=== PATIENT | male | born 1955 | race Caucasian/White ===

== ENCOUNTER 2024-02-21 11:06 | Outpatient (CLI) | payer MEDICARE, MEDICAID, SELFPAY ==
--- NOTE | 2024-02-21 11:19 | ECG_ITS ---
APPROVED REPORT Exam: Resting ECG HR:47 bpm ECG Measurements Heart Rate 47 AXES QRSd 106 QRS 9 QT 439 T 14 QTc 402 Conclusion SUPRAVENTRICULAR BRADYCARDIA LOW QRS VOLTAGE IN PRECORDIAL LEADS [QRS DEFLECTION < 1.0 mV IN CHEST LEADS] ABNORMAL RHYTHM ECG UNCONFIRMED REPORT Electronically signed by : Antelmo Watson MD 02/22/2024 17:16:50
[2024-02-21 11:49] LABS: Basophils # 0.1 K/mm3 (0-0.2); Basophils % 0.8 % (0.1-2.0); Eosinophils # 0.2 K/mm3 (0.0-0.4); Eosinophils % 2.6 % (0.1-12.0); Hematocrit 32.3 % (42.0-52.0); Hemoglobin 10.4 g/dL (14.1-18.0); Lymphocytes # 1.4 K/mm3 (0.7-4.5); Lymphocytes % 17.4 % (10-50); Mean Corpuscular HGB Conc 32.3 g/dL (31.8-35.4); Mean Corpuscular Hemoglobin 31.2 pg (27.0-31.2); Mean Corpuscular Volume 96.6 fl (80-94); Mean Platelet Volume 9.2 fl (7.4-10.4); Monocytes # 0.5 K/mm3 (0.1-1.0); Monocytes % 6.5 % (1.7-9.3); Neutrophils # 5.8 K/mm3 (1.8-7.8); Neutrophils % 72.7 % (37.0-80.0); Platelet Count 286 K/mm3 (142-424); Red Blood Count 3.34 M/mm3 (4.60-6.20)
[2024-02-21 12:47] LABS: Chloride 107 mmol/L (98-107); Potassium 4.3 mmoL/L (3.5-5.1); Sodium 139 mmol/L (136-145)
[2024-02-21 12:50] LABS: Alanine Aminotransferase 13 U/L (12-78); Albumin/Globulin Ratio 1.5 (1.1-1.8); Alkaline Phosphatase 75 U/L (38-126); Anion Gap 9.3 mEq/L (5-15); Aspartate Amino Transferase 25 U/L (17-59); Bilirubin,Total 0.5 mg/dl (0.2-1.3); Blood Urea Nitrogen 13 mg/dl (9-20); Calcium 9.1 mg/dl (8.4-10.2); Carbon Dioxide 27 mmol/L (22.0-30.0); Estimated Glomerular Filt Rate 75 ml/min (>60); GFR (African American) 90 ML/MIN (>60); Globulin 2.7 g/dL (1.3-3.2); Glucose 80 mg/dl (74-100); Total Protein,Serum 6.7 g/dl (6.3-8.2)
== END 2024-02-21 23:59 | disposition home or self-care (01) ==
LOC: LAB 11:10
PROVIDERS: PCP Nurse Practitioner Family; Visit Provider Surgery
DX: R22.30 Localized swelling, mass and lump, unspecified upper limb (principal)
CPT/HCPCS: 36415; 80053; 85025; 93005

== ENCOUNTER 2024-02-23 06:02 | Day surgery (SDC) | payer MEDICARE, MEDICAID, SELFPAY ==
[2024-02-23] VITALS (9 sets, daily range): BP systolic 109–128; BP diastolic 63–77; PULSE 41–52; RESP 16–18; TEMP 36.1–36.5; O2SAT 95–96; BMI 21.2
[2024-02-23] MEDS: LACTATED RINGERS 1000ML 1,000 ML 25 ML IV (06:28)
[2024-02-23] MEDS: CLINDAMYCIN PHOSPHATE/D5W 900 MG/50 ML PIGGYBACK 100 MG IV (07:24)
[2024-02-23] MEDS: LIDOCAINE 1% 20ML MDV 20 ML (07:30)
[2024-02-23] MEDS: ROPIVACAINE 0.5% 30ML VIAL 150 MG (07:30)
--- NOTE | 2024-02-23 07:56 | P.OP_ITS ---
Date of procedure: 02/23/24 Pre-op Diagnosis:: Forearm lesion Post-op Diagnosis:: Same Procedure performed:: Excision of lesion from right forearm Surgeon:: Diego Truong MD RISK CONTROL OFFICER:: Josh Ramirez Anesthesia: LMA Estimated blood loss (mL): 10 Clinical Note:: Patient is a 69-year-old male with no regular physician. He states that he has not gone to the doctor in quite some time. He had developed a lesion on the right forearm about 2 years ago. It had markedly increased in size over time. He had attempted to tie it off and ligated about a week or so ago. He was finally convinced by his family to seek medical attention. He was seen in Joey Whaley's office and referred for surgical consultation. He was seen in surgical consultation on 02/21/2024 in the office. He was found to have a large somewhat pedunculated fungating necrotic lesion measuring at least 5 cm which was foul-smelling. It was difficult to determine the etiology. There was some surrounding scar tissue on the forearm. Given the necrosis and potential for infection of this large lesion plan was made for simple excision with attempted primary closure. It was explained to the patient that this could be a neoplasm may require more definitive therapy possibly at higher level facility. However, given the necrosis and potential for infection plan was made to proceed with excision. . Operative findings:: Somewhat pedunculated large 5 to 6 cm forearm skin mass . Surrounding skin tissues were very friable. . Operative note:: Consent was obtained patient taken the operating room. He was positioned in supine position. Anesthesia was induced via LMA. The area was prepped and draped in the standard surgical fashion. Inspection was carried out and there was somewhat of a pedunculated smaller base. Limited incision was made in an attempt to create somewhat of an elliptical incision at the base. The lesion with the limited skin was excised with use of electrocautery. Hemostasis was achieved with electrocautery. Local anesthetic was infiltrated. The skin defect was closed as best as possible with several dermal interrupted 3-0 Vicryl sutures and interrupted 4-0 nylon. Surrounding skin tissues were very friable. Antibiotic ointment and dressing was applied. . Condition: stable Disposition: PACU Complications:: None immediately.
--- NOTE | 2024-02-23 08:56 | EXP.ANES.II ---
[facility] Anesthesia Record Part II Anesthesia Record Part II Discharge Time: 08:25 Destination: Surgical Day Care (OP Surgery) PACU nurse assessment reviewed?: Yes Patient Condition:: Good Anesthesia Complications:: None Swallowing reflex intact?: Yes Airway Patency: Patent Cyanosis?: No Blood Pressure: 123/73 SaO2: 96 Respiratory Rate: 16 Pulse Rate: 48 Temperature: 97.6 F Mental Status: Alert & Oriented Pain level:: 0 Nausea and/or vomitting:: None Intake, IV Amount: 0 Hydration: Adequate
== END 2024-02-23 08:56 | disposition home or self-care (01) ==
PROVIDERS: PCP Nurse Practitioner Family; Visit Provider Surgery
PROC: (CPT 11606; principal; 2024-02-23 07:30)
DX: C43.61 Malignant melanoma of right upper limb, including shoulder (principal)
CPT/HCPCS: 11606; 88305; 88341; 88342; 96374; J1100; J2405; J3010; J7120

== ENCOUNTER 2025-02-12 10:17 | Inpatient (IN) | payer MEDICARE, MEDICAID, SELFPAY ==
[2025-02-12] VITALS (31 sets, daily range): BP systolic 119–151; BP diastolic 62–81; PULSE 49–80; RESP 16–18; TEMP 36.6–37.1; O2SAT 90–99; BMI 22.4
--- NOTE | 2025-02-12 10:28 | PC.NURSE ---
TERI MELISSA at
[2025-02-12 11:05] LABS: Immature Granulocytes % 0.6 %; Mean Corpuscular HGB Conc 28.6 g/dL (31.8-35.4); Mean Corpuscular Hemoglobin 23.3 pg (27.0-31.2); Mean Corpuscular Volume 81.4 fl (80-94); Nucleated Red Blood Cells % 0.3 %; Platelet Count 399 K/mm3 (142-424); Red Blood Count 2.53 M/mm3 (4.60-6.20); Red Cell Distribution Width-SD 50.1 fL; White Blood Count 7.9 K/mm3 (4.8-10.8)
[2025-02-12 11:09] LABS: Hematocrit 20.6 % (42.0-52.0)
[2025-02-12 11:13] LABS: Albumin Level 4.6 g/dl (3.5-5.0); Chloride 107 mmol/L (98-107)
[2025-02-12 11:14] LABS: Potassium 4.2 mmoL/L (3.5-5.1); Sodium 141 mmol/L (136-145)
[2025-02-12 11:15] LABS: INR 0.97 (0.9-1.1); Prothrombin Time 10.8 seconds (10.1-12.5)
[2025-02-12 11:16] LABS: Alanine Aminotransferase 11 U/L (12-78); Anion Gap 15.2 mEq/L (5-15); Aspartate Amino Transferase 22 U/L (17-59); Blood Urea Nitrogen 15 mg/dl (9-20); Carbon Dioxide 23 mmol/L (22.0-30.0); Creatinine Clearance Estimated 73 mL/min (50-200); Creatinine,Serum 0.90 mg/dl (0.66-1.25); Estimated Glomerular Filt Rate 84 ml/min (>60); GFR (African American) 102 ML/MIN (>60)
[2025-02-12 11:17] LABS: Albumin/Globulin Ratio 1.4 (1.1-1.8); Alkaline Phosphatase 71 U/L (38-126); Bilirubin,Total 0.4 mg/dl (0.2-1.3); Calcium 9.6 mg/dl (8.4-10.2); Globulin 3.3 g/dL (1.3-3.2); Glucose 87 mg/dl (74-100); Total Protein,Serum 7.9 g/dl (6.3-8.2)
[2025-02-12 11:20] LABS: Hemoglobin 5.9 g/dL (14.1-18.0)
[2025-02-12 11:49] LABS: Free T4 (Free Thyroxine) 0.09 ng/dl (0.78-2.19)
[2025-02-12 12:06] LABS: Occult Blood,Stool Positive (Negative)
[2025-02-12] MEDS: PANTOPRAZOLE SODIUM 80 MG in 0.9 % SODIUM CHLORIDE 100 ML 100 MG IV (12:17)
[2025-02-12 12:33] LABS: Hepatitis C Ab Qual. W/ RFX NEGATIVE (Negative)
--- NOTE | 2025-02-12 12:35 | PC.NURSE ---
Dr. castillo office called and said he was in a meeting and would call back in 30 mins.
--- NOTE | 2025-02-12 12:48 | EXP.HP ---
History of Present Illness *Admission Date: 02/12/25 *Reason for visit:: Weakness *History of present illness: Mr. Bear is a 70-year-old male with past medical history of melanoma status post excisions and skin grafts. No other significant past medical history. On no home medications at this time. He presented to the ER because of worsening fatigue and weakness. Presented with his significant other who states he is just not been himself. Concerned he is been more pale. Due to his weakness, initial labs were obtained. Found to have severe anemia with hemoglobin of 5.9. Thyroid labs obtained showing TSH 185. Typed and crossed for transfusion and initiated on transfusion in the ED. Medicine consulted for admission and further management. On arrival to the floor, patient is alert and oriented x 4. Denies any bria bloody stools or melena. Stool occult found to be positive. Receiving his first unit of blood. States he is feeling little bit better since starting to receive blood. Says he has just not had the energy to do much for quite some time. Unable to specify further. Denies any tobacco use history. Drinks rarely. Does not take aspirin or NSAIDs frequently. On no home medications. [facility] Disclaimer: The information contained in this section may have been updated after the patient was seen, as this information can be updated by other users. Medical History No significant past medical history Surgical History History of local excision of skin lesion History of abdominal surgery History of arthroscopy of left knee Family History Mother Bone cancer Lung cancer Father Prostate cancer Social History Smoking Status: Current every day smoker alcohol intake: current substance use type: marijuana current occupational status: retired and other Travel in the last 8 weeks?: None Have you lived/traveled outside US in past 30 days?: No Contact w/someone who lives/traveled outside US past 30 days?: No Exposure to someone with infectious disease in past 14 days?: No Do you have a fever (greater than 100.4 F or 38 C)?: No Have you tested positive for COVID-19?: No Exposed to someone with COVID-19 in past 14 days?: No Do you have a sore throat?: No Do you have a cough?: No Do you have any weakness?: No Do you have any diarrhea?: No Are you experiencing any unusual bleeding?: No Do you have any muscle aches/pain?: No Do you have any abdominal pain?: No Are you experiencing loss of taste or smell?: No Other Medical History Have you received the Pneumonia Vaccine: No Review of Systems Review of Systems Review of systems (narrative): 14 point review of systems performed, pertinent positives and negatives as per HPI Meds Home Medications and Allergies Home Medications ?Medication ?Instructions ?Recorded ?Confirmed ?Type No Known Home Medications 02/21/24 02/12/25 History New Prescriptions to Start Prescriptions: Allergies Allergy/AdvReac Type Severity Reaction Status Date / Time penicillin G Allergy Unknown Unknown Verified 02/12/25 11:32 allergy reaction Exam Data for Last 24 hours Vital signs and Labs for Last 24 Hours: Temp Pulse Resp BP Pulse Ox O2 Del Method 98.0 F 64 18 151/81 H 98 Room Air 02/12/25 10:38 02/12/25 10:38 02/12/25 10:38 02/12/25 10:38 02/12/25 10:38 02/12/25 10:38 Laboratory Results - last 24 hr 02/12/25 10:50: WBC 7.9, RBC 2.53 L, Hgb 5.9 L*, Hct 20.6 L*, MCV 81.4, MCH 23.3 L, MCHC 28.6 L, RDW 16.9, Plt Count 399, MPV 10.0, Neut % (Auto) 69.9, Lymph % (Auto) 15.4, [place] % (Auto) 9.8 H, Eos % (Auto) 3.4, Baso % (Auto) 0.9, Neut # (Auto) 5.5, Lymph # (Auto) 1.2, [place] # (Auto) 0.8, Eos # (Auto) 0.3, Baso # (Auto) 0.1, PT 10.8, INR 0.97, Sodium 141, Potassium 4.2, Chloride 107, Carbon Dioxide 23, Anion Gap 15.2 H, BUN 15, Creatinine 0.90, Estimated Creat Clear 73, Estimated GFR 84, Est GFR ( Amer) 102, Glucose 87, Calcium 9.6, Total Bilirubin 0.4, AST 22, ALT 11 L, Alkaline Phosphatase 71, Total Protein 7.9, Albumin 4.6, Globulin 3.3 H, Albumin/Globulin Ratio 1.4, Free T4 0.09 L, HCV Ab PATRICIA w/Rflx PCR Qn Negative, HIV Ag/Ab Combo Qual Negative, Blood Type A Positive, Antibody Screen Negative, Crossmatch (AHG) See Detail 02/12/25 11:30: Blood Type Confirm A Positive 02/12/25 12:00: Stool Occult Blood Positive A I & O for Last 24 hours: Intake & Output 02/09/25 02/10/25 02/11/25 02/12/25 23:59 23:59 23:59 23:59 Weight 73.028 kg Constitutional Constitutional: no acute distress, thin, chronically ill appearing and cooperative *Routine HEENT Exam Head: Present normocephalic Eye: Present EOMI and PERRL ENT: Present mucous membranes moist *Routine Neck Exam Neck: Present supple; Absent lymphadenopathy *Routine Respiratory Exam Respiratory: Present CTA bilaterally; Absent respiratory distress, stridor or wheezes *Routine Cardiovascular Exam Cardiovascular: Present RRR *Routine Abdominal Exam Abdominal: Present soft and normoactive bowel sounds; Absent tenderness *Routine Rectal Exam Rectal:: deferred *Routine Genitalia Exam Genitalia:: deferred *Routine Extremities Exam Extremities: Absent cyanosis, clubbing or edema *Routine Skin Exam Skin: Present intact, pallor and warm; Absent rash *Routine Neurological Exam Neurological: Present alert, oriented X3 and moving all extremities; Absent altered mental status Assessment and Plan *Assessment and plan (1) Hypothyroidism: Status: Acute Qualifiers: Hypothyroidism type: unspecified Qualified Code(s): E03.9 - Hypothyroidism, unspecified Category: Medical Code(s): E03.9 - Hypothyroidism, unspecified (2) ABLA (acute blood loss anemia): Status: Acute Category: Medical Code(s): D62 - Acute posthemorrhagic anemia (3) Melanoma: Status: Chronic Category: Medical Code(s): C43.9 - Malignant melanoma of skin, unspecified (4) GI (gastrointestinal hemorrhage): Status: Acute Qualifiers: GI bleed type/associated pathology: melena Qualified Code(s): K92.1 - Melena Category: Medical Code(s): K92.2 - Gastrointestinal hemorrhage, unspecified Plan 70-year-old man who presents with weakness and fatigue. Significant other states he has been more pale and fatigued lately. On presentation found to have severe anemia with hemoglobin of 5.9 and a TSH of 185. Discussed case with ER physician, request admission for severe hypothyroidism and symptomatic anemia. I decided to admit due to severity of hypothyroidism and anemia. Concern for acute on chronic blood loss anemia. Stool occult positive. GI consulted. Problems addressed as follows: Acute on chronic blood loss anemia - Stool occult positive. Concern for GI bleed. Received 80 mg pantoprazole IV once in the ED. Continue 40 mg IV twice daily - Transfusion threshold hemoglobin less than 7. Transfusing 2 units at this time. Repeat H&H this afternoon. Hemoglobin on presentation of 5.9 - GI consulted, n.p.o. at midnight, plan for EGD in the morning - Repeat CBC, CMP, magnesium ordered for the morning Hypothyroid - TSH 185, free T4 less than 0.1. Severe hypothyroid. Concerned it may be a culprit in his anemia above. Needs aggressive treatment. Initiate on 200 mcg IV levothyroxine once. Continue 100 mcg daily. - Initiate liothyronine 2.5 mcg 3 times a day for his T3 deficit. - Thyroid ultrasound ordered and pending - Thyroid peroxidase antibody pending, thyroid-stimulating immunoglobulin pending History of melanoma: Multiple previous excisions. Lesions well-healed. Not on any chemo at this time. Full code N.p.o. pending EGD SCDs, VTE contraindicated
--- NOTE | 2025-02-12 13:56 | ED_ITS ---
Discharge Plan Disposition Patient Disposition: Admitted Condition: Fair Prescriptions Prescriptions: No Action No Known Home Medications Referrals Follow up/Referrals: Joey Whaley APRN [Primary Care Provider, Medical] - See instructions Clinical Impressions Clinical Impression: ABLA (acute blood loss anemia), GI (gastrointestinal hemorrhage), Hypothyroidism Print Language Print Language: Somali Discharge ED Provider: Alex Bautista General Adult HPI General Chief complaint: Weakness Stated complaint: anemia and hypothroidism Time Seen by Provider: 02/12/25 10:21 Mode of Arrival: Ambulatory Source of Information: Patient Description of Symptoms (Recalled from ER Triage Doc. by RN): Patient reports he was sent over for evaluation for some abnormal lab results after seeing his pcp yesterday. History of Present Illness HPI narrative: This is a 70-year-old male patient, with past medical history of melanoma status post local excision with no evidence of metastasis, who is presenting to the emergency department today for evaluation of anemia noted in clinic. He had blood labs with the Joey Whaley in clinic and was referred here for further evaluation. This gentleman tells me that he has been having melanotic stools over the course of the last several months in addition to progressive weakness, fatigue, and lightheadedness. He also states that he experiences near syncope with standing up quickly. His tells me that he used to be full of energy and was able to perform extensive activity, but he is now unable to do so. He has not had any abdominal pain or persistent nausea. He does state from time to time he feels as if he is having reflux. Otherwise he has not had any evidence of hematemesis. No chest pain or shortness of breath Related Data Home Medications ?Medication ?Instructions ?Recorded ?Confirmed No Known Home Medications 02/21/2401/25 Allergies Allergy/AdvReac Type Severity Reaction Status Date / Time penicillin G Allergy Unknown Unknown Verified 02/12/25 11:32 allergy reaction [facility] Disclaimer: The information contained in this section may have been updated after the patient was seen, as this information can be updated by other users. Medical History No significant past medical history Surgical History History of local excision of skin lesion History of abdominal surgery History of arthroscopy of left knee Family History Mother Bone cancer Lung cancer Father Prostate cancer Social History Smoking Status: Current every day smoker alcohol intake: current substance use type: marijuana current occupational status: retired and other Travel in the last 8 weeks?: None Have you lived/traveled outside US in past 30 days?: No Contact w/someone who lives/traveled outside US past 30 days?: No Exposure to someone with infectious disease in past 14 days?: No Do you have a fever (greater than 100.4 F or 38 C)?: No Have you tested positive for COVID-19?: No Exposed to someone with COVID-19 in past 14 days?: No Do you have a sore throat?: No Do you have a cough?: No Do you have any weakness?: No Do you have any diarrhea?: No Are you experiencing any unusual bleeding?: No Do you have any muscle aches/pain?: No Do you have any abdominal pain?: No Are you experiencing loss of taste or smell?: No Other Medical History Have you received the Pneumonia Vaccine: No ROS Obtained: Yes Systems reviewed as appropriate & no additional complaints except as documented Physical Exam General General appearance: other (See MDM) Respiratory Respiratory exam: Present other (See MDM) Cardiovascular Cardiovascular exam: Present other (See MDM) Neurological Exam Neurological exam: Present other (See MDM) Medical Decision Making Medical Records Medical records reviewed: Yes I reviewed the patient's medical records. Screening: Per USPSTF and CDC recommendations, given the prevalence of disease in our region, it is our hospital?s policy to screen for HIV and viral Hepatitis for all patients aged 18 and over and those with ongoing risk factors. Jonathan Inquiry Pt receiving controlled substance: No Jonathan was queried for this patient: No Vital Signs: 02/12/25 10:31 02/12/25 10:38 02/12/25 12:20 Temperature 98.0 F Temperature Source Oral Pulse Rate 63 55 L Pulse Rate [Right Brachial] 64 Respiratory Rate 18 Blood Pressure 147/78 H 126/62 Blood Pressure [Right Arm] 151/81 H Blood Pressure Mean [Right Arm] 104 Blood Pressure Source [Right Arm] Automatic Cuff Blood Pressure Position [Right Arm] Sitting 02 Sat by Pulse Oximetry 97 98 96 Oxygen Delivery Method Room Air Room Air 02/12/25 12:30 02/12/25 13:00 Temperature Temperature Source Pulse Rate 54 L 58 L Pulse Rate [Right Brachial] Respiratory Rate Blood Pressure 119/64 126/70 Blood Pressure [Right Arm] Blood Pressure Mean [Right Arm] Blood Pressure Source [Right Arm] Blood Pressure Position [Right Arm] 02 Sat by Pulse Oximetry 99 97 Oxygen Delivery Method Room Air Lab Data Lab Results 02/12/25 10:50: WBC 7.9, RBC 2.53 L, Hgb 5.9 L*, Hct 20.6 L*, MCV 81.4, MCH 23.3 L, MCHC 28.6 L, RDW 16.9, Plt Count 399, MPV 10.0, Neut % (Auto) 69.9, Lymph % (Auto) 15.4, [place] % (Auto) 9.8 H, Eos % (Auto) 3.4, Baso % (Auto) 0.9, Neut # (Auto) 5.5, Lymph # (Auto) 1.2, [place] # (Auto) 0.8, Eos # (Auto) 0.3, Baso # (Auto) 0.1, PT 10.8, INR 0.97, Sodium 141, Potassium 4.2, Chloride 107, Carbon Dioxide 23, Anion Gap 15.2 H, BUN 15, Creatinine 0.90, Estimated Creat Clear 73, Estimated GFR 84, Est GFR ( Amer) 102, Glucose 87, Calcium 9.6, Total Bilirubin 0.4, AST 22, ALT 11 L, Alkaline Phosphatase 71, Total Protein 7.9, Albumin 4.6, Globulin 3.3 H, Albumin/Globulin Ratio 1.4, Free T4 0.09 L, HCV Ab PATRICIA w/Rflx PCR Qn Negative, HIV Ag/Ab Combo Qual Negative, Blood Type A Positive, Antibody Screen Negative, Crossmatch (AHG) See Detail 02/12/25 11:30: Blood Type Confirm A Positive 02/12/25 12:00: Stool Occult Blood Positive A 02/12/25 10:50 02/12/25 10:50 Orders (Tests/Meds): ED MEDICATIONS Generic Name Dose Route Start Last Admin Trade Name Freq PRN Reason Stop Dose Admin Acetaminophen 650 mg 02/12/25 12:47 Acetaminophen 325mg Tab PO 09/18/25 12:46 Q4HP PRN Fever or Mild Pain (1-3) Sodium Chloride 250 mls @ 25 mls/hr 02/12/25 11:30 Sod Chlor 0.9% 250ml Bag IV 02/13/25 11:29 .Q10H JOEL Nicotine 21 mg 02/12/25 12:47 Nicotine 21mg/24hr Patch TD 03/14/25 12:46 DAILYP PRN Nicotine Cravings Pantoprazole Sodium 40 mg 02/12/25 21:00 Pantoprazole 40mg Vial IV 03/14/25 20:59 BID JOEL Sodium Chloride 10 ml 02/12/25 12:50 Sodium Chloride 0.9% 10ml Vial IV 03/14/25 12:49 NEEDED PRN Reconstitute Medications Discontinued Medications Generic Name Dose Route Start Last Admin Trade Name Freq PRN Reason Stop Dose Admin Pantoprazole Sodium 80 mg/ 100 mls @ 100 mls/hr 02/12/25 12:04 02/12/25 13:19 Sodium Chloride IV 02/12/25 13:03 Infused ONCE ONE Infusion ORDERS Category Date Time Status Blood transfusion [Red Blood Cells] Stat BBK 02/12/25 10:50 Results Type and Screen Stat BBK 02/12/25 10:50 Results Gastroenterology Consult [Consult to Gastroenterology] Cons 02/12/25 12:47 Active [CONS] Routine CBC w/Auto Diff [Complete Blood Count Auto Diff] Stat Lab 02/12/25 10:50 Completed CMP [Comprehensive Metabolic Panel] Stat Lab 02/12/25 10:50 Results Complete Blood Count Auto Diff AMLAB Lab 02/13/25 06:00 Ordered Comprehensive Metabolic Panel AMLAB Lab 02/13/25 06:00 Ordered Free T4 (Free Thyroxine) Stat Lab 02/12/25 10:50 Completed HIV Combo Stat Lab 02/12/25 10:50 Completed Hepatitis C Ab Qual. W/ RFX Stat Lab 02/12/25 10:50 Completed Magnesium AMLAB Lab 02/13/25 06:00 Ordered Occult Blood,Stool Stat Lab 02/12/25 12:00 Completed PT INR [Prothrombin Time INR] Stat Lab 02/12/25 10:50 Completed TSH [Thyroid Stimulating Hormone] Stat Lab 02/12/25 10:50 Results Medical Decision Narrative: In summary, this is a 70-year-old male patient who is presenting to the emergency department today for evaluation of chronic fatigue and weakness going on over period of months in association with melanotic stools. Patient's comorbidities include a past medical history of melanoma status post local excision with no current evidence of metastasis. On initial evaluation of the patient they were resting comfortably in no acute distress and nontoxic in appearance. They are hemodynamically stable, saturating well room air, and are neurologically intact. On physical examination the patient his heart and lungs are clear to auscultation bilaterally. He has no abdominal tenderness to palpation. He is not tachycardic. He does have conjunctival pallor as well as facial pallor. Differential diagnosis includes lower GI bleed, upper GI bleed, Dula Lina lesion, gastritis, blood loss anemia, among others. Workup was initiated with hematologic labs as well as a type and screen. I did not feel that imaging was indicated for this patient as I had a low suspicion for arterial bleeding at this time. Labs were interpreted by me and demonstrates profound anemia with a hemoglobin of 5.9 and hematocrit of 20.6. He has no evidence of pancytopenia to suggest bone marrow failure as the cause of his anemia. Otherwise there is no acute electrolyte derangement or evidence of acute kidney injury. His free T4 is 0.09, and in clinic today his TSH is greater than 100. This is consistent with hypothyroidism. He has no goiter noted on exam. I did perform a Hemoccult stool test that was positive for occult blood. At this significantly increases my suspicion of GI bleed as the etiology of his symptoms. I had an interactive discussion with the sign language instructor on-call Dr. Sen who agreed with my assessment and asked to have the patient admitted to the internal medicine service for acute on chronic GI bleeding and further evaluation with endoscopy/colonoscopy. Patient remained hemodynamically stable without tachycardia throughout the duration of his stay in the emergency department. I have ordered 2 units of blood and initiated transfusion to the patient. Patient did sign informed consent before proceeding with transfusion. Given his melena stools, he could have upper GI bleed as the origin of his blood loss, so we did administer 80 mg of Protonix IV I have had an interactive discussion with the internal medicine service who is agreed to evaluate the patient the emergency department. After our discussion their evaluation have agreed to admit the patient to their service and except primary responsibility the patient moving forward Critical Care Critical Care Time Critical Care Time: Yes Attestation: On 02/12/25, the high probability of a clinically significant, sudden or life threatening deterioration of the following system(s) required my full and direct attention, intervention and personal management. The time I documented below is in addition to time spent performing reported procedures but includes the following listed in this critical care notation. Total Time Total Critical Care Time: 35
--- NOTE | 2025-02-12 14:12 | PC.NURSE ---
called report to Lacie Tavarez RN
[2025-02-12 15:26] LABS: Thyroid Stimulating Hormone 185.00 uIU/mL (0.465-4.68)
--- NOTE | 2025-02-12 15:40 | US_ITS ---
PROCEDURE INFORMATION: Exam: US Soft Tissue Head and Neck, Thyroid Exam date and time: 02/12/2025 3:59 PM Age: 70 years old Clinical indication: Abnormal findings; Abnormal thyroid lab test; Additional info: Hypothyroid TECHNIQUE: Imaging protocol: Real-time ultrasound scan of the neck with image documentation. Exam focused on the thyroid. Total images: 27 COMPARISON: No relevant prior studies available. FINDINGS: Right thyroid lobe: No nodules. Heterogeneous nodular echotexture with increased Doppler flow. Right lobe measuring 4.0 x 1.3 x 1.1 cm. Left thyroid lobe: No nodules. Heterogeneous nodular echotexture. No increased Doppler flow. Left lobe measuring 2.2 x 0.7 x 0.8 cm. Isthmus: No nodules. Non thickened isthmus at 1.9 mm IMPRESSION: 1. Small heterogeneous thyroid gland. 2. No nodule or mass. 3. Mild Doppler hyperemia right thyroid lobe. 4. Constellation of features may reflect Roxanne's thyroiditis.
[2025-02-12] MEDS: LEVOTHYROXINE SODIUM 100 MCG VIAL 200 MCG IV (16:14)
[2025-02-12] MEDS: SODIUM CHLORIDE 0.9% 10ML VIAL 10 ML IV (16:15)
--- NOTE | 2025-02-12 17:14 | P.CONS_ITS ---
History of Present Illness *Admission Date: 02/12/25 *History of present illness: Mr. Bear is a 70-year-old gentleman who presented to the ED with worsening fatigue and malaise. He also had some dyspnea on exertion. He was found to have severe anemia with hemoglobin of 5.9 and hematocrit of 20.6 with borderline microcytic indices.. He is Hemoccult positive. The patient states that he saw a little bit of blood on the tissue 2 to 3 months ago but reports no melena, hematochezia or bright red blood per rectum. He reports no abdominal pain, weight loss, change in his bowel habits or family history of colon cancer. His father had bleeding ulcers. The patient has been on baby aspirin or possibly an NSAID but takes this very rarely and possibly once monthly. He has never had an upper endoscopy or colonoscopy. He does have a history of metastatic melanoma. [facility] Disclaimer: The information contained in this section may have been updated after the patient was seen, as this information can be updated by other users. Medical History No significant past medical history Surgical History History of local excision of skin lesion History of abdominal surgery History of arthroscopy of left knee Family History Mother Bone cancer Lung cancer Father Prostate cancer Social History Smoking Status: Current every day smoker alcohol intake: current substance use type: marijuana current occupational status: retired and other Travel in the last 8 weeks?: None Have you lived/traveled outside US in past 30 days?: No Contact w/someone who lives/traveled outside US past 30 days?: No Exposure to someone with infectious disease in past 14 days?: No Do you have a fever (greater than 100.4 F or 38 C)?: No Have you tested positive for COVID-19?: No Exposed to someone with COVID-19 in past 14 days?: No Do you have a sore throat?: No Do you have a cough?: No Do you have any weakness?: No Do you have any diarrhea?: No Are you experiencing any unusual bleeding?: No Do you have any muscle aches/pain?: No Do you have any abdominal pain?: No Are you experiencing loss of taste or smell?: No Meds Home Medications and Allergies Home Medications ?Medication ?Instructions ?Recorded ?Confirmed ?Type No Known Home Medications 02/21/2401/25 History New Prescriptions to Start Prescriptions: Allergies Allergy/AdvReac Type Severity Reaction Status Date / Time penicillin G Allergy Unknown Unknown Verified 02/12/25 11:32 allergy reaction Exam (Inpt) Vital signs and Labs for Last 24 Hours: Temp Pulse Resp BP Pulse Ox O2 Del Method 98.4 F 54 L 18 134/69 97 Room Air 02/12/25 16:05 02/12/25 16:05 02/12/25 16:05 02/12/25 16:05 02/12/25 16:05 02/12/25 14:50 Laboratory Results - last 24 hr 02/12/25 10:50: WBC 7.9, RBC 2.53 L, Hgb 5.9 L*, Hct 20.6 L*, MCV 81.4, MCH 23.3 L, MCHC 28.6 L, RDW 16.9, Plt Count 399, MPV 10.0, Neut % (Auto) 69.9, Lymph % (Auto) 15.4, [place] % (Auto) 9.8 H, Eos % (Auto) 3.4, Baso % (Auto) 0.9, Neut # (Auto) 5.5, Lymph # (Auto) 1.2, [place] # (Auto) 0.8, Eos # (Auto) 0.3, Baso # (Auto) 0.1, PT 10.8, INR 0.97, Sodium 141, Potassium 4.2, Chloride 107, Carbon Dioxide 23, Anion Gap 15.2 H, BUN 15, Creatinine 0.90, Estimated Creat Clear 73, Estimated GFR 84, Est GFR ( Amer) 102, Glucose 87, Calcium 9.6, Total Bilirubin 0.4, AST 22, ALT 11 L, Alkaline Phosphatase 71, Total Protein 7.9, Albumin 4.6, Globulin 3.3 H, Albumin/Globulin Ratio 1.4, TSH 185.00 H, Free T4 0.09 L, HCV Ab PATRICIA w/Rflx PCR Qn Negative, HIV Ag/Ab Combo Qual Negative, Blood Type A Positive, Antibody Screen Negative, Crossmatch ([facility]) See Detail 02/12/25 11:30: Blood Type Confirm A Positive 02/12/25 12:00: Stool Occult Blood Positive A I & O for Labs for Last 24 Hours: Intake & Output 02/09/25 02/10/25 02/11/25 02/12/25 23:59 23:59 23:59 23:59 Intake Total 100 / 100 Balance 100 / 100 Weight 161 lb Comments:: Normoactive bowel sounds, soft, nondistended, nontender, benign abdomen Results Labs 02/12/25 10:50 02/12/25 10:50 Labs: Laboratory Results - last 24 hr 02/12/25 10:50: WBC 7.9, RBC 2.53 L, Hgb 5.9 L*, Hct 20.6 L*, MCV 81.4, MCH 23.3 L, MCHC 28.6 L, RDW 16.9, Plt Count 399, MPV 10.0, Neut % (Auto) 69.9, Lymph % (Auto) 15.4, [place] % (Auto) 9.8 H, Eos % (Auto) 3.4, Baso % (Auto) 0.9, Neut # (Auto) 5.5, Lymph # (Auto) 1.2, [place] # (Auto) 0.8, Eos # (Auto) 0.3, Baso # (Auto) 0.1, PT 10.8, INR 0.97, Sodium 141, Potassium 4.2, Chloride 107, Carbon Dioxide 23, Anion Gap 15.2 H, BUN 15, Creatinine 0.90, Estimated Creat Clear 73, Estimated GFR 84, Est GFR ( Amer) 102, Glucose 87, Calcium 9.6, Total Bilirubin 0.4, AST 22, ALT 11 L, Alkaline Phosphatase 71, Total Protein 7.9, Albumin 4.6, Globulin 3.3 H, Albumin/Globulin Ratio 1.4, TSH 185.00 H, Free T4 0.09 L, HCV Ab PATRICIA w/Rflx PCR Qn Negative, HIV Ag/Ab Combo Qual Negative, Blood Type A Positive, Antibody Screen Negative, Crossmatch ([facility]) See Detail 02/12/25 11:30: Blood Type Confirm A Positive 02/12/25 12:00: Stool Occult Blood Positive A Assessment and Plan *Assessment and plan (1) Anemia due to blood loss, chronic: Status: Acute Category: Medical Code(s): D50.0 - Iron deficiency anemia secondary to blood loss (chronic) (2) Iron deficiency anemia: Status: Acute Category: Medical Code(s): D50.9 - Iron deficiency anemia, unspecified (3) Occult blood positive stool: Status: Acute Category: Medical Code(s): R19.5 - Other fecal abnormalities Plan 1. Microcytic anemia with Hemoccult positive stool and probable chronic GI blood loss. The patient has never had EGD or colonoscopy and I will plan EGD and colonoscopy tomorrow and begin bowel preparation today. I have discussed risk benefits and alternatives with the patient. I will obtain iron studies today.
[2025-02-12 18:57] LABS: Iron 33 ug/dL (49-181)
[2025-02-12] MEDS: PEG-ELECTROLYTE SOLN 4000ML BOTTLE 4000 ML PO (19:01)
[2025-02-12 19:08] LABS: Total Iron Binding Capacity 420 ug/dL (261-462)
[2025-02-12 19:34] LABS: Ferritin 6.74 ng/ml (17.9-464)
[2025-02-12] MEDS: PANTOPRAZOLE 40MG VIAL 40 MG IV (20:39)
[2025-02-12 20:42] LABS: Vitamin B12 317 pg/mL (239-931)
[2025-02-12 21:45] LABS: Hematocrit 25.8 % (42.0-52.0)
[2025-02-12 22:18] LABS: Hemoglobin 8.0 g/dL (14.1-18.0)
[2025-02-13] VITALS (16 sets, daily range): BP systolic 100–145; BP diastolic 52–77; PULSE 46–64; RESP 16–18; TEMP 36.3–37; O2SAT 92–97; BMI 21.5
[2025-02-13] MEDS: 0.9 % SODIUM CHLORIDE 250 ML 25 ML IV (00:23)
--- NOTE | 2025-02-13 06:09 | PC.NURSE ---
Pt is A&OX4, was getting a blood transfusion when i received report. Pleasant gentleman. Pt did a GOLYTE Prep for a EGD and colonoscopy. The consent is signed and on the chart. AYDIN FOX RN
[2025-02-13 06:29] LABS: Hematocrit 23.4 % (42.0-52.0); Hemoglobin 7.3 g/dL (14.1-18.0); Immature Granulocytes % 0.4 %; Mean Corpuscular HGB Conc 31.2 g/dL (31.8-35.4); Mean Corpuscular Hemoglobin 25.3 pg (27.0-31.2); Mean Corpuscular Volume 81.0 fl (80-94); Nucleated Red Blood Cells % 0 %; Platelet Count 306 K/mm3 (142-424); Red Blood Count 2.89 M/mm3 (4.60-6.20); Red Cell Distribution Width-SD 47.2 fL; White Blood Count 7.7 K/mm3 (4.8-10.8)
[2025-02-13 06:42] LABS: Albumin Level 3.7 g/dl (3.5-5.0); Chloride 109 mmol/L (98-107); Potassium 3.4 mmoL/L (3.5-5.1); Sodium 140 mmol/L (136-145)
[2025-02-13 06:44] LABS: Blood Urea Nitrogen 11 mg/dl (9-20); Creatinine Clearance Estimated 70 mL/min (50-200); Creatinine,Serum 0.70 mg/dl (0.66-1.25); Estimated Glomerular Filt Rate 112 ml/min (>60); GFR (African American) 136 ML/MIN (>60)
[2025-02-13 06:45] LABS: Alanine Aminotransferase 11 U/L (12-78); Albumin/Globulin Ratio 1.4 (1.1-1.8); Alkaline Phosphatase 68 U/L (38-126); Anion Gap 9.4 mEq/L (5-15); Aspartate Amino Transferase 28 U/L (17-59); Bilirubin,Total 0.5 mg/dl (0.2-1.3); Calcium 8.8 mg/dl (8.4-10.2); Carbon Dioxide 25 mmol/L (22.0-30.0); Globulin 2.6 g/dL (1.3-3.2); Glucose 82 mg/dl (74-100); Total Protein,Serum 6.3 g/dl (6.3-8.2)
[2025-02-13 06:46] LABS: Magnesium 2.1 mg/dl (1.6-2.3)
[2025-02-13] MEDS: LEVOTHYROXINE 100MCG (0.1MG) TAB 100 MCG PO (07:44)
[2025-02-13] MEDS: PANTOPRAZOLE 40MG VIAL 40 MG IV ×2 (08:49→20:21)
[2025-02-13] MEDS: SODIUM CHLORIDE 0.9% 10ML VIAL 10 ML IV (08:49)
[2025-02-13] MEDS: IRON SUCROSE COMPLEX 200 MG in 0.9 % SODIUM CHLORIDE 100 ML 220 MG IV (10:33)
--- NOTE | 2025-02-13 11:46 | P.PNANES_ITS ---
[facility] Disclaimer: The information contained in this section may have been updated after the patient was seen, as this information can be updated by other users. Medical History No significant past medical history Surgical History History of local excision of skin lesion History of abdominal surgery History of arthroscopy of left knee Family History Mother Bone cancer Lung cancer Father Prostate cancer Social History Smoking Status: Current every day smoker alcohol intake: current substance use type: marijuana current occupational status: retired and other Travel in the last 8 weeks?: None Have you lived/traveled outside US in past 30 days?: No Contact w/someone who lives/traveled outside US past 30 days?: No Exposure to someone with infectious disease in past 14 days?: No Do you have a fever (greater than 100.4 F or 38 C)?: No Have you tested positive for COVID-19?: No Exposed to someone with COVID-19 in past 14 days?: No Do you have a sore throat?: No Do you have a cough?: No Do you have any weakness?: No Do you have any diarrhea?: No Are you experiencing any unusual bleeding?: No Do you have any muscle aches/pain?: No Do you have any abdominal pain?: No Are you experiencing loss of taste or smell?: No [facility] Anesthesia Checklist Patient Identification Patient Identification: Arm Band Structural Data Admitted From: Home Planned Operative Procedure/s: EGD/Colonoscopy Consent for Planned Operative Procedure(s) Verified: Yes Verified Documents: Surgical Consent and History and Physical NPO Status Verified Time NPO: 00:00 Additional verifications Anesthesia Reactions: No Hx Blood Transfusions: No Blood Transfusion Reaction: No Airway Assessment Mallampati Score:: Class II C-Spine Mobility Assessed: Yes TMJ Mobility Assessed: Yes Dentition: Edentulous Neurological Assessment Level of Consciousness: Awake, Alert and Appropriate Anesthesia Plan Anesthesia Risk discussed: Yes Anesthesia Plan: Verified ASA Class: II Anesthesia Type: MAC
--- NOTE | 2025-02-13 12:09 | HMH.PROCNOTE ---
[facility] Procedure Note Date: 02/13/25 Time: 12:22 Procedure Note:: Upper Endoscopy Procedure Report: Esophagogastroduodenoscopy with cold biopsies Endoscopost: Jimy Sen II, MD Referring Physician: RAMÓN Carpio Date of Procedure: February 13, 2025 Equipment: Olympus [id number] standard upper endoscope Sedation: MAC sedation Indications: Mr. Bear is a 70-year-old gentleman who is here for diagnostic EGD and colonoscopy. He presented to the ED with worsening fatigue and malaise. He also had some dyspnea on exertion. He was found to have severe anemia with hemoglobin of 5.9 and hematocrit of 20.6 with borderline microcytic indices.. He is Hemoccult positive. The patient states that he saw a little bit of blood on the tissue 2 to 3 months ago but reports no melena, hematochezia or bright red blood per rectum. He reports no abdominal pain, weight loss, change in his bowel habits or family history of colon cancer. His father had bleeding ulcers. The patient has been on baby aspirin or possibly an NSAID but takes this very rarely and possibly once monthly. He has never had an upper endoscopy or colonoscopy. He does have a history of metastatic melanoma. Procedure: Prior to the procedure, a history and physical exam was performed, and patient's medications and allergies were reviewed. The risks, benefits and alternatives of the sedation and procedure were discussed with the patient. All questions were answered and informed consent was obtained. The patient was brought to the procedure room. Patient identification and proposed procedure were verified by the physician and the nurse. The patient was placed in a left lateral decubitus position and the scope was passed under direct vision. Throughout the procedure, the patient's blood pressure, pulse, and oxygen saturations were monitored continuously. The upper GI endoscopy was accomplished without difficulty. The patient tolerated the procedure well. Findings: The scope was passed directly into the upper esophagus and advanced to the third portion of the duodenum. The post bulbar duodenum and duodenal bulb were normal with normal mucosa and conniventes. Cold biopsies were taken from the first portion of the duodenum to rule out celiac disease. The scope was withdrawn through a normal duodenal bulb and pylorus into the stomach. The antrum was normal. Along the proximal greater curvature was a marginated 11 to 12 mm ulcer with no stigmata. Given the slightly heaped margins and depression, multiple biopsies were obtained to rule out malignancy at the ulcer base and along the margins. Upon retroflexion there was a very small sliding hiatal hernia. The scope was then withdrawn into the esophagus. There was no evidence of reflux esophagitis and the remainder of the esophageal mucosa was normal. Impression: 1. Marginated 11 to 12 mm gastric ulcer in the proximal body of the stomach along the greater curvature?multiple biopsies taken Plan: Given the location and heaped margins, I do have some concern that this could be a malignant gastric ulcer. Melanoma is known to metastasize within the GI tract and I will check biopsies to determine whether this is benign or malignant. I do feel that this is the most likely cause of his chronic GI blood loss. I will have him remain on PPI therapy. I will proceed with diagnostic colonoscopy.
--- NOTE | 2025-02-13 12:22 | P.CONENDO_ITS ---
History of Present Illness *Admission Date: 02/12/25 *History of present illness: Mr. Bear is a 70-year-old male with a PMH of melanoma, presented to the ED with worsening fatigue and malaise. Currently admitted for acute blood loss anemia. Endocrine was consulted for profound hypothyroidism. Patient mentioned that for past couple months he has been feeling more fatigue, and drowsy. He however denies any weight gain, cold intolerance, constipation or pedal edema. 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 In the ER he was found to have TSH of 185, free T4 of 0.09 and TPO elevated. He denies any family history of thyroid disorders or thyroid cancer. [facility] Disclaimer: The information contained in this section may have been updated after the patient was seen, as this information can be updated by other users. Medical History No significant past medical history Surgical History History of local excision of skin lesion History of abdominal surgery History of arthroscopy of left knee Family History Mother Bone cancer Lung cancer Father Prostate cancer Social History Smoking Status: Current every day smoker alcohol intake: current substance use type: marijuana current occupational status: retired and other Travel in the last 8 weeks?: None Have you lived/traveled outside US in past 30 days?: No Contact w/someone who lives/traveled outside US past 30 days?: No Exposure to someone with infectious disease in past 14 days?: No Do you have a fever (greater than 100.4 F or 38 C)?: No Have you tested positive for COVID-19?: No Exposed to someone with COVID-19 in past 14 days?: No Do you have a sore throat?: No Do you have a cough?: No Do you have any weakness?: No Do you have any diarrhea?: No Are you experiencing any unusual bleeding?: No Do you have any muscle aches/pain?: No Do you have any abdominal pain?: No Are you experiencing loss of taste or smell?: No Review of Systems Review of Systems Review of systems:: pertinent systems reviewed and negative unless documented below Constitutional Constitutional: Reports fatigue, Reports lethargy, Reports malaise and Denies weight gain *Cardiovascular Cardiovascular: Denies dyspnea *Respiratory Respiratory: Denies dyspnea *Gastrointestinal Gastrointestinal: Reports hematochezia *Musculoskeletal Musculoskeletal: Denies muscle cramps Psychiatric Psychiatric: Reports system reviewed and no additional complaints, except as documented Endocrine Endocrine: Denies change in body appearance, Denies cold intolerance and Reports fatigue Hematologic/Lymphatic Hematologic/Lymphatic: Reports as per HPI Exam Data for Last 24 hours Vital signs and Labs for Last 24 Hours: Temp Pulse Resp BP Pulse Ox O2 Del Method 97.4 F L 48 L 16 106/62 L 96 Room Air 02/13/25 10:37 02/13/25 10:37 02/13/25 10:37 02/13/25 10:37 02/13/25 10:37 02/13/25 11:00 Laboratory Results - last 24 hr 02/12/25 10:50: Iron 33 L, TIBC 420, Iron Saturation 7.55200 L, Ferritin 6.74 L, Vitamin B12 317, TSH 185.00 H, HCV Ab PATRICIA w/Rflx PCR Qn Negative, HIV Ag/Ab Combo Qual Negative, Blood Type A Positive, Antibody Screen Negative, Crossmatch ([facility]) See Detail 02/12/25 11:30: Blood Type Confirm A Positive 02/12/25 21:39: Hgb 8.0 L D, Hct 25.8 L 02/12/25 : Thyroid Peroxidase Ab >600 H 02/13/25 05:39: WBC 7.7, RBC 2.89 L, Hgb 7.3 L, Hct 23.4 L, MCV 81.0, MCH 25.3 L , MCHC 31.2 L, RDW 15.9, Plt Count 306, MPV 10.4, Neut % (Auto) 71.1, Lymph % (Auto) 14.7, [place] % (Auto) 9.8 H, Eos % (Auto) 3.1, Baso % (Auto) 0.9, Neut # (Auto) 5.5, Lymph # (Auto) 1.1, [place] # (Auto) 0.8, Eos # (Auto) 0.2, Baso # (Auto) 0.1, Sodium 140, Potassium 3.4 L, Chloride 109 H, Carbon Dioxide 25, Anion Gap 9.4, BUN 11 D, Creatinine 0.70 D, Estimated Creat Clear 70, Estimated GFR 112, Est GFR ( Amer) 136 D, Glucose 82, Calcium 8.8, Magnesium 2.1, Total Bilirubin 0.5, AST 28 D, ALT 11 L, Alkaline Phosphatase 68, Total Protein 6.3, Albumin 3.7 D, Globulin 2.6, Albumin/Globulin Ratio 1.4 I & O for Last 24 hours: Intake & Output 02/10/25 02/11/25 02/12/25 02/13/25 23:59 23:59 23:59 23:59 Intake Total 600 / 4625 4319.167 / 4319.167 Output Total 800 / 800 Balance 600 / 4625 3519.167 / 3519.167 Weight 161 lb 153 lb 11.2 oz Constitutional Constitutional: no acute distress and cooperative *Routine HEENT Exam Head: Present normocephalic and atraumatic *Routine Neck Exam Neck: Absent thyromegaly *Routine Respiratory Exam Respiratory: Present CTA bilaterally and normal respiratory effort *Routine Cardiovascular Exam Cardiovascular: Present RRR *Routine Extremities Exam Extremities: Absent edema *Routine Skin Exam Skin: Absent dry *Routine Neurological Exam Neurological: Present alert and oriented X3 Routine Psychiatric Exam Psychiatric: Present normal affect Meds Home Medications and Allergies Home Medications ?Medication ?Instructions ?Recorded ?Confirmed ?Type No Known Home Medications 02/21/2401/25 History New Prescriptions to Start Prescriptions: Allergies Allergy/AdvReac Type Severity Reaction Status Date / Time penicillin G Allergy Unknown Unknown Verified 02/12/25 11:32 allergy reaction Assessment and Plan *Assessment and plan (1) Hypothyroidism: Problem Comment: Profound hypothyroidism Status: Acute Qualifiers: 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 levothyroxine and liothyronine 2.5 TID. - Recommend increasing p.o. levothyroxine dose to 112mcg daily (weight-based). - Hold further liothyronine. - Check free T4 levels tomorrow, if within normal limits then levothyroxine dose is optimal. - Follow-up outpatient in 4 weeks, with repeat labs TSH and free T4. Endocrinology to sign off. Thank you for the consult. (2) Anemia due to blood loss, chronic: Status: Acute Category: Medical Code(s): D50.0 - Iron deficiency anemia secondary to blood loss (chronic) Plan: - Plan as per primary team Results Labs 02/13/25 05:39 02/13/25 05:39 labs: Diabetes panel 02/13/25 05:39 Creatinine 0.70 D Glucose 82 Thyroid panel 02/12/25 02/12/25 10:50 Unknown TSH 185.00 H Thyroid Peroxidase Ab >600 H Calcium panel 02/13/25 05:39 Calcium 8.8 Magnesium 2.1 Alkaline Phosphatase 68 Albumin 3.7 D Comprehensive Metabolic Panel 02/13/25 05:39 Sodium 140 Potassium 3.4 L Chloride 109 H Carbon Dioxide 25 Anion Gap 9.4 BUN 11 D Creatinine 0.70 D Estimated Creat Clear 70 Est GFR ( Amer) 136 D Glucose 82 AST 28 D ALT 11 L Alkaline Phosphatase 68 Total Protein 6.3 Albumin 3.7 D Globulin 2.6 Albumin/Globulin Ratio 1.4
--- NOTE | 2025-02-13 12:57 | P.PCN_ITS ---
[facility] Procedure Note Date: 02/13/25 Time: 12:57 Procedure Note:: Colonoscopy Procedure Report: Colonoscopy with cold snare polypectomy and snare hot cautery polypectomy and Endo Clip placement Endoscopist: Jimy Sen II, MD Referring physician: RAMÓN Carpio Date of Procedure: February 13, 2025 Equipment: Olympus [id number] adult colonoscope Sedation: MAC sedation Indication: Mr. Bear is a 70-year-old gentleman who is here for diagnostic EGD and colonoscopy. He presented to the ED with worsening fatigue and malaise. He also had some dyspnea on exertion. He was found to have severe anemia with hemoglobin of 5.9 and hematocrit of 20.6 with borderline microcytic indices.. He is Hemoccult positive. The patient states that he saw a little bit of blood on the tissue 2 to 3 months ago but reports no melena, hematochezia or bright red blood per rectum. He reports no abdominal pain, weight loss, change in his bowel habits or family history of colon cancer. His father had bleeding ulcers. The patient has been on baby aspirin or possibly an NSAID but takes this very rarely and possibly once monthly. He has never had an upper endoscopy or colonoscopy. He does have a history of metastatic melanoma. The patient's TSH was 185 consistent with more severe hypothyroidism with free T4 0.09. Procedure: Prior to the procedure, a history and physical exam was performed, and patient's medications and allergies were reviewed. The risks, benefits and alternatives of the sedation and procedure were discussed with the patient. All questions were answered and informed consent was obtained. The patient was brought to the procedure room. Patient identification and proposed procedure were verified by the physician and the nurse. The patient was placed in a left lateral decubitus position and the scope was passed under direct vision. Throughout the procedu re, the patient's blood pressure, pulse, and oxygen saturations were monitored continuously. The colonoscopy was accomplished without difficulty. The patient tolerated the procedure well. Findings: On digital rectal examination there was normal rectal tone. There were no external hemorrhoids. The prostate was 2+, smooth, soft, symmetric without nodules. The colonoscope was introduced through the anal canal to the rectum and advanced to the cecum. The ileocecal valve and appendiceal orifice were identified. The scope was advanced a short distance into the ileum which appeared grossly normal. The scope was then withdrawn into the colon. The preparation was fair to poor with a lot of liquid brown stool and some semisolid residue. There were 13 colon polyps (cecum/ascending x 5 (4, 5, 6, 6 and 13 mm), proximal ascending x 3 (5, 7 and 8 mm) transverse x 1 (5 mm), descending x 1 (8 mm), sigmoid x 2 (8 and 15 mm), and rectosigmoid x 1 (5 mm). All of the polyps were removed via cold snare polypectomy except for the larger 15 mm polyp that was removed via snare cautery and was pedunculated. After removal, there was some active oozing and heme and the polypectomy stalk was closed with 2 endoclips. There were scattered diverticuli throughout the descending and sigmoid colon (LEFT colon). The rectum itself was normal. Upon retroflexion within the rectum there were grade 2 internal hemorrhoids. Impression: 1. Colonic polyps x 13 (ranging in size from 4 to 15 mm) 2. Left-sided diverticulosis 3. Grade 2 internal hemorrhoids Plan: I will follow-up the polyp histology and recommend repeat screening/surveillance colonoscopy again in 1 year based upon the number and size of these polyps and advanced adenomatous nature of some of the polyps. The patient does have significant hypothyroidism which accounts for some of the fatigue and malaise. I do suspect the Hemoccult positive stool is related to the gastric ulcer and I will follow-up the biopsies. I will begin PPI therapy. I would also encourage psyllium fiber supplementation.
[2025-02-13 14:00] LABS: Hematocrit 26.3 % (42.0-52.0)
[2025-02-13 14:27] LABS: Hemoglobin 8.0 g/dL (14.1-18.0)
[2025-02-13 14:29] LABS: Free T4 (Free Thyroxine) 0.44 ng/dl (0.78-2.19)
--- NOTE | 2025-02-13 16:15 | EXP.ACUTE.PN ---
Subjective *Date: 02/13/25 *Time: 16:15 Interval history: No black or bloody bowel movements. Hemoglobin with slight drop today after transfusion yesterday. Patient states overall he is feeling better however. On room air. Denies any chest pain or shortness of breath. Afebrile Medical Exam Vital signs and Labs for Last 24 Hours: Vital Signs Temp Pulse Pulse Resp BP BP Pulse Ox 02/13/25 14:58 02/13/25 14:15 50 L 17 120/62 96 02/13/25 14:00 46 L 17 145/65 H 94 L 02/13/25 13:45 97.7 F 54 L 17 140/69 94 L 02/13/25 13:20 98.6 F 64 18 112/66 97 02/13/25 13:10 98.6 F 59 L 18 103/63 L 96 02/13/25 13:00 98.6 F 53 L 18 100/52 L 95 02/13/25 11:00 02/13/25 10:37 97.4 F L 48 L 16 106/62 L 96 02/13/25 09:00 02/13/25 07:58 02/13/25 07:53 97.4 F L 48 L 16 106/62 L 96 02/13/25 07:00 02/13/25 05:00 02/13/25 04:00 98.5 F 51 L 16 106/58 L 94 L 02/13/25 03:00 02/13/25 01:00 02/13/25 00:00 97.7 F 54 L 16 124/73 96 02/12/25 23:00 02/12/25 21:30 98.5 F 51 L 16 139/64 93 L 02/12/25 21:00 02/12/25 20:30 98.5 F 55 L 16 129/75 96 02/12/25 20:05 98.5 F 54 L 16 120/72 98 02/12/25 20:00 94 L 02/12/25 19:05 98.5 F 56 L 16 122/71 97 02/12/25 18:50 98.5 F 55 L 16 128/72 94 L 02/12/25 18:36 02/12/25 18:35 98.5 F 56 L 16 129/73 95 02/12/25 18:20 98.7 F 56 L 18 120/68 95 02/12/25 18:15 98.5 F 54 L 18 124/63 96 02/12/25 18:10 98.8 F 54 L 16 123/70 97 02/12/25 18:05 98.5 F 56 L 16 123/65 96 02/12/25 18:00 98.2 F 56 L 18 137/71 95 02/12/25 17:30 98.5 F 52 L 18 124/68 98 02/12/25 17:05 98.5 F 56 L 16 123/65 96 02/12/25 17:00 02/12/25 16:30 98.2 F 49 L 17 119/64 96 O2 Del Method 02/13/25 14:58 Room Air 02/13/25 14:15 Room Air 02/13/25 14:00 Room Air 02/13/25 13:45 Room Air 02/13/25 13:20 Room Air 02/13/25 13:10 Room Air 02/13/25 13:00 Room Air 02/13/25 11:00 Room Air 02/13/25 10:37 Room Air 02/13/25 09:00 Room Air 02/13/25 07:58 Room Air 02/13/25 07:53 Room Air 02/13/25 07:00 Room Air 02/13/25 05:00 Room Air 02/13/25 04:00 Room Air 02/13/25 03:00 Room Air 02/13/25 01:00 Room Air 02/13/25 00:00 Room Air 02/12/25 23:00 Room Air 02/12/25 21:30 02/12/25 21:00 Room Air 02/12/25 20:30 02/12/25 20:05 02/12/25 20:00 Room Air 02/12/25 19:05 02/12/25 18:50 02/12/25 18:36 Room Air 02/12/25 18:35 02/12/25 18:20 02/12/25 18:15 02/12/25 18:10 02/12/25 18:05 02/12/25 18:00 02/12/25 17:30 02/12/25 17:05 02/12/25 17:00 Room Air 02/12/25 16:30 Intake and Output 02/13/25 02/13/25 02/13/25 07:59 15:59 23:59 Intake Total 4209.167 / 4319.167 110 / 4319.167 Output Total 800 / 800 0 / 800 Balance 3409.167 / 3519.167 110 / 3519.167 Intake: Intake, Oral Amount 4000 / 4000 Intake, Total IV Amount 209.167 / 319.167 110 / 319.167 0.9 % Sodium Chloride 250 ml @ 209.167 / 209.167 25 mls/hr IV .Q10H [facility] Rx#: [id number] Iron Sucrose Complex 200 mg In 110 / 110 0.9 % Sodium Chloride 100 ml @ 220 mls/hr IV ONCE ONE Rx#: [id number] Output: Output, Urine Amount 800 / 800 0 / 800 Other: Number of Unmeasured Voids 1 1 Number of Bowel Movements 1 1 Weight 69.717 kg Patient Weight 02/13/25 23:59 Weight 69.717 kg Laboratory Results - last 24 hr 02/12/25 10:50: Iron 33 L, TIBC 420, Iron Saturation 7.35130 L, Ferritin 6.74 L, Vitamin B12 317, Blood Type A Positive, Antibody Screen Negative, Crossmatch (AHG) See Detail 02/12/25 21:39: Hgb 8.0 L D, Hct 25.8 L 02/12/25 : Thyroid Peroxidase Ab >600 H 02/13/25 05:39: WBC 7.7, RBC 2.89 L, Hgb 7.3 L, Hct 23.4 L, MCV 81.0, MCH 25.3 L, MCHC 31.2 L, RDW 15.9, Plt Count 306, MPV 10.4, Neut % (Auto) 71.1, Lymph % (Auto) 14.7, [place] % (Auto) 9.8 H, Eos % (Auto) 3.1, Baso % (Auto) 0.9, Neut # (Auto) 5.5, Lymph # (Auto) 1.1, [place] # (Auto) 0.8, Eos # (Auto) 0.2, Baso # (Auto) 0.1, Sodium 140, Potassium 3.4 L, Chloride 109 H, Carbon Dioxide 25, Anion Gap 9.4, BUN 11 D, Creatinine 0.70 D, Estimated Creat Clear 70, Estimated GFR 112, Est GFR ( Amer) 136 D, Glucose 82, Calcium 8.8, Magnesium 2.1, Total Bilirubin 0.5, AST 28 D, ALT 11 L, Alkaline Phosphatase 68, Total Protein 6.3, Albumin 3.7 D, Globulin 2.6, Albumin/Globulin Ratio 1.4 02/13/25 13:50: Hgb 8.0 L, Hct 26.3 L, Free T4 0.44 L I & O for Labs for Last 24 Hours: Intake & Output 02/10/25 02/11/25 02/12/25 02/13/25 23:59 23:59 23:59 23:59 Intake Total 600 / 4625 4319.167 / 4319.167 Output Total 800 / 800 Balance 600 / 4625 3519.167 / 3519.167 Weight 73.028 kg 69.717 kg Constitutional: Present no acute distress, thin, chronically ill appearing and cooperative Head: Present atraumatic and normocephalic ENT: Present normal exam Respiratory: Present normal respiratory effort; Absent rhonchi, wheezes or crackles Cardiac: Present Reg Rate and Rhythm GI: Present soft, tenderness (Mild epigastric) and normal bowel sounds; Absent distention Extremities: Present normal inspection and full ROM; Absent edema Skin: Present intact; Absent erythema or pallor Comment:: Large sebaceous cyst at the size of a silver dollar on his upper back. 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 Qualified Code(s): E06.3 - Autoimmune thyroiditis Category: Medical Code(s): E03.9 - Hypothyroidism, unspecified (2) ABLA (acute blood loss anemia): Status: Acute Category: Medical Code(s): D62 - Acute posthemorrhagic anemia (3) Melanoma: Status: Chronic Category: Medical Code(s): C43.9 - Malignant melanoma of skin, unspecified (4) GI (gastrointestinal hemorrhage): Status: Acute Qualifiers: GI bleed type/associated pathology: melena Qualified Code(s): K92.1 - Melena Category: Medical Code(s): K92.2 - Gastrointestinal hemorrhage, unspecified Plan 70-year-old man who presents with weakness and fatigue. Significant other states he has been more pale and fatigued lately. On presentation found to have severe anemia with hemoglobin of 5.9 and a TSH of 185. Discussed case with ER physician, request admission for severe hypothyroidism and symptomatic anemia. I decided to admit due to severity of hypothyroidism and anemia. Concern for acute on chronic blood loss anemia. Stool occult positive. GI and endocrine assisting with care. Continues to require inpatient management. Problems addressed as follows: Acute on chronic blood loss anemia Iron deficiency Gastric ulcer - Stool occult positive. Concern for GI bleed. Received 80 mg pantoprazole IV once in the ED. Continue 40 mg IV twice daily - Transfusion threshold hemoglobin less than 7. Received 2 units after admission. Responded well to hemoglobin of 8. Dropped to 7.3 this morning. Repeat H&H ordered for the afternoon. Repeat CBC, CMP, magnesium ordered for the morning. - Discussed case with GI, taken for EGD. Found to have ulceration with raised borders. Concerning for malignancy. Biopsies taken. Will monitor overnight. Hypothyroid, profound, posing risk to bodily function - TSH 185, free T4 less than 0.1. Severe hypothyroid. TPO antibody greater than 600. Consistent with Roxanne's. - Discussed case with endocrine, transition to levothyroxine 112 mcg daily. Discontinue liothyronine - Thyroid ultrasound obtained, formal read pending - Needs repeat TSH in 4 to 6 weeks History of melanoma: Multiple previous excisions. Lesions well-healed. Not on any chemo at this time. Review of chart and pathology shows invasive melanoma. T4 NX 1 year ago. Saw oncology, decided to defer on starting Keytruda. Will refer back to oncology after discharge to reevaluate possible treat Full code Clear liquid diet SCDs, VTE contraindicated
--- NOTE | 2025-02-13 17:24 | CA_ITS ---
APPROVED REPORT EXAM: Comprehensive 2D, Doppler, and color-flow Echocardiogram Lens Inserter: Joanne Serrano CRT Ht: 5 ft 10 in Wt: 153lbs BSA: 1.86 BP: 151/81 mmHg Indications: Assess Ejection Fraction, GI bleed, smoker, fatigue, sob 2D Dimensions LA Volume 38.40 mL M-Mode Dimensions RVDd 2.64 cm (0.9-2.6) LA Diam 3.34 cm (1.9-4.0) LVDd 5.17 cm (3.5-5.7) LVDs 3.21 cm (3.5-5.7) IVSd 1.57 cm (0.6-1.1) PWd 1.07 cm (0.6-1.1) EF (Teich) 67.70% FS 37.90% EDV (Teich) 127.80 mL TAPSE 1.94 (<1.7) ESV (Teich) 41.30 mL LV Diastology E Decel Time 150 (160-240 msec) E/A Ratio 1.69 MED A' 7.30 cm/s LAT A' 8.20 cm/s Aortic Valve AI PHT 986.00 ms AO Peak GR. 8.00 mmHg Mitral Valve MV E Max Eligio. 66.0 (40-130 cm/s) MV A Velocity 39.0 (40-130 cm/s) E/A Ratio 1.69 MV PHT 44.0 ms Pulmonary Valve PV Peak Velocity 88.0 (50-150 cm/s) Tricuspid Valve TR P. Velocity 281.00 cm/s RAP Estimate 10.00 mmHg RVSP 41.50 mmHg Left Ventricle The left ventricle is normal size. Left ventricular systolic function is normal. The left ventricular ejection fraction is within the normal range. There is normal left ventricular wall thickness. There is normal LV segmental wall motion. The left ventricular diastolic function is normal. LVEF is 55% Right Ventricle The right ventricle is mildly dilated. The right ventricular systolic function is normal. Atria The left atrium is mildly dilated. Is mildly dilated. The right atrium There is no color Doppler evidence of interatrial shunt. Aortic Valve The aortic valve is mildly thickened. There is no hemodynamically significant aortic valvular stenosis. Moderate aortic regurgitation is present. Mitral Valve The mitral valve is normal in structure. No evidence of mitral valve stenosis. Mild mitral regurgitation is present. Tricuspid Valve The tricuspid valve leaflets are thin and pliable. Mild tricuspid regurgitation. RVSP is 20-25 mmHg. Pulmonic Valve The pulmonary valve is grossly normal in structure. Trace pulmonic valve regurgitation is present. Great Vessels The aortic root is normal in size. The ascending aorta is mildly dilated, measuring 4.0 cm in diameter. IVC is normal in size and collapses >50% with inspiration. Pericardium There is no pericardial effusion. Other Information Study Quality: Fair Conclusion Normal biventricular systolic function. Mild RV dilation. Mild biatrial dilation. Moderate AI. Mild MR, mild TR. The ascending aorta is mildly dilated, measuring 4.0 cm in diameter. Correlation with new or recent CTA chest is suggested. Electronically signed by : Molly Meek MD 02/13/2025 13:11:33
--- NOTE | 2025-02-13 17:32 | PC.NURSE ---
Pt is A&O x4. Pt is now off post op vitals. VS have remained stable. He remains on RA. No complaints at this time. Medications administered per aug. Pt has tolerated clear liquid diet. Call light within reach.
[2025-02-14] VITALS: BP 108/61; PULSE 57; RESP 16; TEMP 36.6; O2SAT 90
[2025-02-14 04:00] VITALS: BP 123/72; PULSE 61; RESP 16; TEMP 36.6; O2SAT 92; BMI 21.5
[2025-02-14 06:34] LABS: Hematocrit 24.2 % (42.0-52.0); Hemoglobin 7.4 g/dL (14.1-18.0); Immature Granulocytes % 0.3 %; Mean Corpuscular HGB Conc 30.6 g/dL (31.8-35.4); Mean Corpuscular Hemoglobin 25.1 pg (27.0-31.2); Mean Corpuscular Volume 82.0 fl (80-94); Nucleated Red Blood Cells % 0 %; Platelet Count 330 K/mm3 (142-424); Red Blood Count 2.95 M/mm3 (4.60-6.20); Red Cell Distribution Width-SD 50.2 fL; White Blood Count 9.5 K/mm3 (4.8-10.8)
[2025-02-14 06:39] LABS: Albumin Level 3.7 g/dl (3.5-5.0); Chloride 110 mmol/L (98-107)
[2025-02-14 06:40] LABS: Potassium 3.3 mmoL/L (3.5-5.1); Sodium 141 mmol/L (136-145)
[2025-02-14 06:42] LABS: Alanine Aminotransferase 8 U/L (12-78); Albumin/Globulin Ratio 1.4 (1.1-1.8); Alkaline Phosphatase 64 U/L (38-126); Anion Gap 10.3 mEq/L (5-15); Aspartate Amino Transferase 21 U/L (17-59); Bilirubin,Total 0.6 mg/dl (0.2-1.3); Blood Urea Nitrogen 10 mg/dl (9-20); Carbon Dioxide 24 mmol/L (22.0-30.0); Creatinine Clearance Estimated 70 mL/min (50-200); Creatinine,Serum 0.70 mg/dl (0.66-1.25); Estimated Glomerular Filt Rate 112 ml/min (>60); GFR (African American) 136 ML/MIN (>60); Globulin 2.6 g/dL (1.3-3.2); Total Protein,Serum 6.3 g/dl (6.3-8.2)
[2025-02-14 06:43] LABS: Calcium 8.9 mg/dl (8.4-10.2); Glucose 87 mg/dl (74-100); Magnesium 2.1 mg/dl (1.6-2.3)
--- NOTE | 2025-02-14 07:15 | EXP.DC.SUM ---
General Admission date:: 02/12/25 Discharge date: 02/14/25 HPI HPI HPI: Mr. Bear is a 70-year-old male with a PMH of melanoma, presented to the ED with worsening fatigue and malaise. Currently admitted for acute blood loss anemia. Endocrine was consulted for profound hypothyroidism. Patient mentioned that for past couple months he has been feeling more fatigue, and drowsy. He however denies any weight gain, cold intolerance, constipation or pedal edema. 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 In the ER he was found to have TSH of 185, free T4 of 0.09 and TPO elevated. He denies any family history of thyroid disorders or thyroid cancer. Hospital Course Hospital Course Hospital Course: 70-year-old man who presents with weakness and fatigue. Significant other states he has been more pale and fatigued lately. On presentation found to have severe anemia with hemoglobin of 5.9 and a TSH of 185. Discussed case with ER physician, request admission for severe hypothyroidism and symptomatic anemia. I decided to admit due to severity of hypothyroidism and anemia. Concern for acute on chronic blood loss anemia. Stool occult positive. GI and endocrine assisting with care. Stable to discharge home after identifying gastric ulcer and improvement in thyroid function after initiating treatment. Problems addressed as follows: Acute on chronic blood loss anemia Iron deficiency Gastric ulcer - Stool occult positive. Concern for GI bleed. Received 80 mg pantoprazole IV once in the ED. continue to 40 mg IV twice daily. Patient was transfused 2 units with improvement in hemoglobin from 5.9 on admission to 7.4 by day of discharge. No active signs of bleeding. Hemoglobin stable. No further transfusions needed. Received 1 dose of Venofer 200 mg IV. Would benefit from completing full IV infusion course. Discussed case with GI, patient was taken for EGD and colonoscopy. Had 13 colonic polyps that were removed. Left-sided diverticulosis. Grade 2 internal hemorrhoids. Will need repeat colonoscopy in 1 year. Plan to follow-up with GI as an outpatient. Also found to have gastric ulcer with raised borders. Biopsies obtained. Concerning appearance. Further discussion of management after biopsy/pathology returns. Will continue pantoprazole 40 mg twice daily. Hypothyroid, profound, posing risk to bodily function - TSH 185, free T4 less than 0.1 1 admission. Improved to 0.44 prior to discharge. TPO antibody greater than 600. Findings consistent with Roxanne's autoimmune hypothyroid. Endocrine was consulted, evaluated patient. Recommend continuing levothyroxine 112 mcg daily. Will follow-up in 4 to 6 weeks for repeat TSH. Thyroid ultrasound was obtained, Ultrasound shows small heterogenous thyroid gland. No nodule or mass. Constellation of features may reflect Roxanne's thyroiditis History of melanoma: Multiple previous excisions. Lesions well-healed. Not on any chemo at this time. Review of chart and pathology shows invasive melanoma. T4 NX 1 year ago. Saw oncology, decided to defer on starting Keytruda. Would benefit from consideration of referral back to oncology after discharge to reevaluate possible treat Total time spent on discharge 32 minutes in counseling, documentation, chart review, and direct care with patient. Exam Data for Last 24 hours Vital signs and Labs for Last 24 Hours: Temp Pulse Resp BP Pulse Ox O2 Del Method 97.9 F 61 16 123/72 92 L Room Air 02/14/25 04:00 02/14/25 04:00 02/14/25 04:00 02/14/25 04:00 02/14/25 04:00 02/14/25 04:00 Laboratory Results - last 24 hr 02/12/25 : Thyroid Peroxidase Ab >600 H 02/13/25 13:50: Hgb 8.0 L, Hct 26.3 L, Free T4 0.44 L 02/14/25 05:52: WBC 9.5, RBC 2.95 L, Hgb 7.4 L, Hct 24.2 L, MCV 82.0, MCH 25.1 L, MCHC 30.6 L, RDW 16.9, Plt Count 330, MPV 10.6 H, Neut % (Auto) 80.7 H, Lymph % (Auto) 8.3 L, [place] % (Auto) 7.8, Eos % (Auto) 2.4, Baso % (Auto) 0.5, Neut # (Auto) 7.7, Lymph # (Auto) 0.8, [place] # (Auto) 0.7, Eos # (Auto) 0.2, Baso # (Auto) 0.1, Sodium 141, Potassium 3.3 L, Chloride 110 H, Carbon Dioxide 24, Anion Gap 10.3, BUN 10, Creatinine 0.70, Estimated Creat Clear 70, Estimated GFR 112, Est GFR ( Amer) 136, Glucose 87, Calcium 8.9, Magnesium 2.1, Total Bilirubin 0.6, AST 21, ALT 8 L D, Alkaline Phosphatase 64, Total Protein 6.3, Albumin 3.7, Globulin 2.6, Albumin/Globulin Ratio 1.4 I & O for Last 24 hours: Intake & Output 02/11/25 02/12/25 02/13/25 02/14/25 23:59 23:59 23:59 23:59 Intake Total 600 / 4625 4799.167 / 5159.167 360 / 360 Output Total 800 / 800 0 / 0 Balance 600 / 4625 3999.167 / 4359.167 360 / 360 Weight 73.028 kg 69.717 kg 69.853 kg Constitutional Constitutional: no acute distress, thin, chronically ill appearing and cooperative *Routine HEENT Exam Head: Present normocephalic Eye: Present EOMI and PERRL ENT: Present mucous membranes moist *Routine Neck Exam Neck: Present supple; Absent lymphadenopathy or thyromegaly *Routine Respiratory Exam Respiratory: Present CTA bilaterally; Absent rhonchi, wheezes or crackles *Routine Cardiovascular Exam Cardiovascular: Present RRR *Routine Abdominal Exam Abdominal: Present soft and normoactive bowel sounds; Absent tenderness *Routine Rectal Exam Patient deferred: visual exam *Routine Exam Patient deferred: penile exam *Routine Extremities Exam Extremities: Absent cyanosis, clubbing or edema *Routine Skin Exam Skin: Present intact and warm; Absent rash *Routine Neurological Exam Neurological: Present alert, oriented X3 and moving all extremities; Absent altered mental status Routine Psychiatric Exam Psychiatric: Present normal affect Results Data Completed and Pending Labs on day of discharge: Labs from last 24 hours 02/14/25 02/13/25 02/12/25 05:52 13:50 Unknown WBC 9.5 RBC 2.95 L Hgb 7.4 L 8.0 L Hct 24.2 L 26.3 L MCV 82.0 MCH 25.1 L MCHC 30.6 L RDW 16.9 Plt Count 330 MPV 10.6 H Neut % (Auto) 80.7 H Lymph % (Auto) 8.3 L [place] % (Auto) 7.8 Eos % (Auto) 2.4 Baso % (Auto) 0.5 Neut # (Auto) 7.7 Lymph # (Auto) 0.8 [place] # (Auto) 0.7 Eos # (Auto) 0.2 Baso # (Auto) 0.1 Sodium 141 Potassium 3.3 L Chloride 110 H Carbon Dioxide 24 Anion Gap 10.3 BUN 10 Creatinine 0.70 Estimated Creat Clear 70 Estimated GFR 112 Est GFR ( Amer) 136 Glucose 87 Calcium 8.9 Magnesium 2.1 Total Bilirubin 0.6 AST 21 ALT 8 L D Alkaline Phosphatase 64 Total Protein 6.3 Albumin 3.7 Globulin 2.6 Albumin/Globulin Ratio 1.4 Free T4 0.44 L Thyroid Peroxidase Ab >600 H DS: Diagnosis Discharge Diagnosis (1) Hypothyroidism: Status: Acute Code(s): E03.9 - Hypothyroidism, unspecified Qualifiers: 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 Qualified Code(s): E06.3 - Autoimmune thyroiditis Problem details: Profound hypothyroidism, present on admission (2) ABLA (acute blood loss anemia): Status: Acute Code(s): D62 - Acute posthemorrhagic anemia (3) Melanoma: Status: Chronic Code(s): C43.9 - Malignant melanoma of skin, unspecified (4) GI (gastrointestinal hemorrhage): Status: Acute Code(s): K92.2 - Gastrointestinal hemorrhage, unspecified Qualifiers: GI bleed type/associated pathology: melena Qualified Code(s): K92.1 - Melena (5) Gastric ulcer: Status: Acute Code(s): K25.9 - Gastric ulcer, unspecified as acute or chronic, without hemorrhage or perforation (6) Iron deficiency anemia: Status: Acute Code(s): D50.9 - Iron deficiency anemia, unspecified Meds Home Medications and Allergies Home Medications ?Medication ?Instructions ?Recorded ?Confirmed ?Type levothyroxine 112 mcg tablet 112 mcg PO DAILYDM 30 days #30 tabs 02/14/25 Rx (Synthroid) pantoprazole 40 mg tablet,delayed 40 mg PO BID #60 tabs 02/14/25 Rx release New Prescriptions to Start Prescriptions: levothyroxine [Synthroid] Kaden Wiley pantoprazole Kaden Wiley Allergies Allergy/AdvReac Type Severity Reaction Status Date / Time penicillin G Allergy Unknown Unknown Verified 02/12/25 11:32 allergy reaction Discharge Plan Disposition Patient Disposition: Home, Self-Care Condition: Fair Discharge Order Discharge Orders: Discharge Order (Routine); Ordered 02/14/25 Ordered By: Kaden Wiley Follow up Plan Follow up with: Jimy Sen II, MD [Staff Physician, Gastroenterology] - 02/21/25 9:00 am oJey Whaley APRN [Primary Care Provider, Medical] - 02/21/25 2:00 pm Kamron Gimenez MD [Staff Physician, Endocrinology] - 03/18/25 10:45 am Prescriptions/Medication Reconciliation: New levothyroxine [Synthroid] 112 mcg Tablet 112 mcg PO DAILYDM 30 Days Qty: 30 0RF pantoprazole 40 mg tablet,delayed release (DR/EC) 40 mg PO BID Qty: 60 0RF Problem Reconciliation Problems Reviewed?: Yes Patient Discharge Instructions ACTIVITY: Continue current activity DIET: continue same diet Patient Instructions: Anemia, Gastrointestinal Bleeding Print Language: Mauritanian Providers Primary Care Provider: Joey Whaley Admit Provider: Kaden Wiley Attending Provider: Kaden Wiley
[2025-02-14 07:33] VITALS: BP 107/69; PULSE 69; RESP 18; TEMP 36.8; O2SAT 92
[2025-02-14 08:25] LABS: Free T4 (Free Thyroxine) 0.36 ng/dl (0.78-2.19)
[2025-02-14] MEDS: PANTOPRAZOLE 40MG VIAL 40 MG IV (08:27)
[2025-02-14] MEDS: LEVOTHYROXINE 112MCG (0.112MG) TAB 112 MCG PO (09:11)
--- NOTE | 2025-02-18 10:41 | SW/DCPLANNER ---
Phoned patient x2. Left message with name and call back number each time. Dallas Thompson
== END 2025-02-14 12:03 | disposition home or self-care (01) | DRG 374 ==
LOC: ER 14:02 → 2ND 14:06
PROVIDERS: Internal Medicine Gastroenterology; Admitting Provider Internal Medicine Adolescent Medicine; Emergency Provider Student in an Organized Health Care Education/Training Program; PCP Nurse Practitioner Family; Visit Provider Internal Medicine Adolescent Medicine
PROC: 0DJ08ZZ Inspection of Upper Intestinal Tract, Via Natural or Artificial Opening Endoscopic (ICD-10-PCS; CPT 45378; principal; 2025-02-13 11:00)
DX: C78.89 Secondary malignant neoplasm of other digestive organs (principal); K25.4 Chronic or unspecified gastric ulcer with hemorrhage; D62 Acute posthemorrhagic anemia; C43.9 Malignant melanoma of skin, unspecified; K64.1 Second degree hemorrhoids; E06.3 Autoimmune thyroiditis; K63.5 Polyp of colon; F17.210 Nicotine dependence, cigarettes, uncomplicated; K57.30 Diverticulosis of large intestine without perforation or abscess without bleeding; Z88.0 Allergy status to penicillin
CPT/HCPCS: 36415; 36430; 76536; 80053; 82272; 82607; 82728; 83540; 83550; 83735; 84439; 84443; 84445; 85014; 85018; 85025; 85610; 86376; 86803; 86850; 87389; 88305; 88341; 88342; 88360; 93306; 99285; G0328; J0650; J1756; J2003; J2470; J2704; J7050; P9016

== ENCOUNTER 2025-02-28 11:12 | Outpatient (CLI) | payer MEDICARE, MEDICAID, SELFPAY ==
--- OUTSIDE RECORDS SUMMARY | 2025-02-28 11:22 | XMS_ITS | Encounter Summary ---
Author Organization Healthcare Address [address] [place] [address] Care Team Providers Care Pneumatic System Conveyor Operator Name Role Phone Diego Truong MD Unavailable [phone] Hernan Silvestre MD Unavailable [phone] Jovana Yesitabby Erickson APRN Primary Care Provider [phone] Encounter Details Date Type Department Care Team (Late st Contact Info) Description 03/15/2024 Lab Requisition [facility] [address] [place] [address] Hernan Silvestre MD [address] [facility] [address] [place] [address] Neoplasm of uncertain behavior of skin Social History Tobacco Use Types Packs/Day Years Used Date Smoking Tobacco: Never Assessed Sex and Gender Information Value Date Recorded Sex Assigned at Not on file Legal Sex Male 11:04 AM EDT Gender Identity Not on file Sexual Orientation Not on file documented as of this encounter Plan of Treatment Not on file documented as of this encounter Procedures Procedure Name Priority Date/Time Associated Diagnosis Comments SURGICAL PATHOLOGY CONSULT Routine 03/15/2024 10:20 AM EDT Neoplasm of uncertain behavior of skin documented in this encounter Results * Surgical Pathology Consult (03/15/2024 10:20 AM EDT) Case Report Sugical Pathology Consult Case: [id number] Authorizing Provider: Hernan Silvestre MD Collected: 03/15/2024 1020 Ordering Location: [facility] Received: 03/15/2024 1020 Pathologist: Oswaldo Sanabria MD Specimen: Skin, [id number] 03/17/2024 12:52 PM EDT [facility] Final Diagnosis SKIN, RIGHT FOREARM, (OUTSIDE CASE : [id number] COLLECTED ON 02/23/2024), EXCISION: - INVASIVE ULCERATED MALIGNANT MELANOMA, NODULAR GROWTH PATTERN, WITH ULCERATION (pT4b). - BRESLOW THICKNESS: AT LEAST 20 MM (PER OUTSIDE PATHOLOGY REPORT) - TOM'S LEVEL: AT LEAST IV - MITOTIC COUNT: MORE THAN 13 MITOSES/1 mm2 - PER OUTSIDE PATHOLOGY REPORT THE LESION COMES TO WITHIN 1 MM OF DEEP TISSUE EDGE. 03/17/2024 12:52 PM EDT [facility] at 1252 EDT Clinical Information D48.5 - Neoplasm of uncertain behavior of skin [ICD-10-CM] 03/17/2024 12:52 PM EDT [facility] Gross Description A. [id number] Received along with a corresponding pathology report from [facility] Laboratory is 1 slide labeled outside case: [id number] collected on 02/23/2024. 03/17/2024 12:52 PM EDT [facility] Note: A resident was involved in the service. I attest I examined the relevant preparations for the specimens and confirmed the diagnosis or interpretation. 03/17/2024 12:52 PM EDT [facility] Tissue Skin structure / Unknown 03/15/2024 10:20 AM EDT 03/15/2024 10:20 AM EDT us Hernan Silvestre MD LAB PATHOLOGY ORDERABLES F inal Result [facility] [address] [place] [address] documented in this encounter Visit Diagnoses Diagnosis Neoplasm of uncertain behavior of skin documented in this encounter Care Teams Pneumatic System Conveyor Operator Relationship Specialty Start Date End Date Joey Whaley APRN [address] [place] [id number] PCP - General 06/27/23 Diego Truong MD [address] [place] [address] Referring Physician 03/01/24 Hernan Silvestre MD [address] [phone] Surgeon Surgical Oncology 03/01/24 documented as of this encounter
--- OUTSIDE RECORDS SUMMARY | 2025-02-28 11:22 | XMS_ITS | Clinical Summary ---
Author Organization [facility] Address [address] [place] [address] Care Team Providers Care Technical Service Specialist Name Role Phone Diego Truong MD Unavailable [phone] Hernan Silvestre MD Unavailable [phone] Joey Whaley APRN Primary Care Provider [phone] Allergies Active Allergy Reactions Criticality Noted Date Comments Penicillin G Rash Low 02/23/2024 Medications Multiple Vitamin (multivitamin) capsule Take 1 capsule by mouth 1 (one) time each day. Active acetaminophen (Tylenol) 500 MG tablet Take 2 tablets (1,000 mg) by mouth every 6 (six) hours if needed for pain. 100 tablet 04/18/20 Active ibuprofen 600 MG tablet Take 1 tablet (600 mg) by mouth every 6 (six) hours if needed for mild pain. 50 tablet 04/18/20 Active senna-docusate sodium (Senokot-S) 8.6-50 MG tablet Take 1 tablet by mouth 1 (one) time each day. 14 tablet 04/18/20 24 Active oxyCODONE (Roxicodone) 5 MG immediate release tablet Take 1 tablet (5 mg) by mouth every 6 (six) hours if needed for severe pain. 15 tablet 04/18/20 24 Active Additional Information Patient taking differently:5 mg Oral Every 6 hours PRN, severe pain,Has not needed to take but has on hand if needed, Reported on 06/07/2024 ondansetron ODT (Zofran-ODT) 4 MG disintegrating tablet Take 1 tablet (4 mg) by mouth every 8 (eight) hours if needed for nausea or vomiting. 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 Cancer Staging:Clinical stage from 04/19/2024:Stage IIC(cT4b, cN0, cM0) - Signed by Hernan Silvestre MD on 05/01/2024 Arthritis 03/20/2024 Skin lesion of chest wall 03/20/2024 Family History Medical History Relation Name Comments Prostate cancer Father Lung cancer Mother Malig Hyperthermia Neg Hx Relation Name Status Comments Father Mother Social History Tobacco Use Types Packs/Day Years Used Date Smoking Tobacco: Never Smokeless Tobacco: Current Snuff Tobacco Cessation:Ready to Q uit: No; Counseling Given: Not Answered Alcohol Use Standard Drinks/Week Comments Yes 1 (1 standard drink = 0.6 oz pur e alcohol) Sex and Gender Information Value Date Recorded Sex Assigned at Not on file Legal Sex Male 11:04 AM EDT Gender Identity Not on file Sexual Orientation Not on file Last Filed Vital Signs Vital Sign Reading Time Taken Comments Blood Pressure 131/83 06/07/2024 1:10 PM EST Pulse 56 06/07/2024 1:10 PM EST Temperature 36.4 C (97.5 F) 06/07/2024 1:10 PM EST Respiratory Rate 16 06/07/2024 1:10 PM EST Oxygen Saturation 98% 06/07/2024 1:10 PM EST Inhaled Oxygen Concentration - - Weight 74.5 kg (164 lb 3.9 oz) 06/07/2024 1:10 P M EST Height 177.8 cm (5' 10 ) 06/07/2024 1:10 PM EST Body Mass Index 23.57 06/07/2024 1:10 PM EST Plan of Treatment Health Maintenance Due Date Last Done Comments UKY-Depression Screening 1957 UKY-Hepatitis C Screening 1957 UKY-Medicare Annual Wellness (AWV) 1957 UKY-/Child/Adol SDOH Screenings 1957 [id number] Vaccine (#1) 1962 UKY- SDOH Screenings 1975 UKY-Adult SDOH Screenings 1975 UKY-DTaP,Tdap,and Td Vaccine s (1 - Tdap) 02/07/1976 UKY-Pneumococcal Vaccine: 50 + Years (1 of 2 - PCV) 02/07/1976 UKY-Zoster Vaccines (1 of 2) 02/07/1976 CT Colonography 2002 Colonoscopy 2002 FIT-DNA 2002 FIT 2002 FOBT 2002 Sigmoidoscopy 2002 UKY-Colorectal Cancer Screening 2002 UKY-Influenza Vaccine (#1) 2025 UKY-RSV Vaccine: 60+ Years o r (1 - 1-dose 75+ series) 02/07/2032 HPV Vaccines Aged Out No longer eligi ble based on patient's age to complete this topic UKY-HIB Vaccines Aged Out No longer e ligible based on patient's age to complete this topic UKY-Hepatitis A Vaccines Aged Out No longer eligible based on patient's age to complete this topic UKY-IPV Vaccines Aged Out No longer e ligible based on patient's age to complete this topic UKY-Rotavirus Vaccines Aged Out No lo nger eligible based on patient's age to complete this topic Insurance [place] [address] Care Teams Technical Service Specialist Relationship Specialty Start Date End Date Joey Whaley APRN [address] [place] [address] PCP - General 06/27/23 Diego Truong MD [address] [place] [address] Referring Physician 03/01/24 Hernan Silvestre MD [address] [address] Surgeon Surgical Oncology 03/01/24
== END 2025-02-28 11:20 | disposition home or self-care (01) ==
LOC: INF 11:13
PROVIDERS: PCP Nurse Practitioner Family; Visit Provider Internal Medicine Medical Oncology
DX: C79.2 Secondary malignant neoplasm of skin (principal)
CPT/HCPCS: 36415

== ENCOUNTER 2025-03-04 12:46 | Outpatient (CLI) | payer MEDICARE, MEDICAID, SELFPAY ==
--- OUTSIDE RECORDS SUMMARY | 2025-03-04 12:50 | XMS_ITS | Encounter Summary ---
Author Organization Healthcare Address [address] [place] [address] Care Team Providers Care Insurance Business Analyst Name Role Phone Diego Truong MD Unavailable [phone] Hernan Silvestre MD Unavailable [phone] Jovana Yesitabby Erickson APRN Primary Care Provider [phone] Encounter Details Date Type Department Care Team (Late st Contact Info) Description 03/15/2024 Lab Requisition [facility] [address] [place] [address] Hernan Silvestre MD 800 [facility] [address] [place] [address] Neoplasm of uncertain behavior of [...] EDT) Case Report [facility] Pathology Consult Case: [id number] Authorizing Provider: Hernan Silvestre MD Collected: 03/15/2024 1020 Ordering Location: [facility] Received: 03/15/2024 1020 Pathologist: Oswaldo Sanabria MD Specimen: Skin, [id number] 03/17/2024 12:52 PM EDT [facility] Final Diagnosis SKIN, RIGHT FOREARM, (OUTSIDE CASE : [id number] COLLECTED ON 02/23/2024), EXCISION: - INVASIVE ULCERATED MALIGNANT MELANOMA, NODULAR GROWTH PATTERN, WITH ULCERATION (pT4b). - BRESLOW THICKNESS: AT LEAST 20 MM (PER OUTSIDE PATHOLOGY REPORT) - TOM'S LEVEL: AT LEAST IV - MITOTIC COUNT: MORE THAN 13 MITOSES/1 mm2 - PER OUTSIDE PATHOLOGY REPORT THE LESION COMES TO WITHIN 1 MM OF DEEP TISSUE EDGE. 03/17/2024 12:52 PM EDT [facility] at 1252 EDT Clinical Information D48.5 - Neoplasm of uncertain behavior of skin [ICD-10-CM] 03/17/2024 12:52 PM EDT [facility] Gross Description A. [id number] Received along with a corresponding pathology report from [facility] is 1 slide labeled outside case: [id number] collected on 02/23/2024. 03/17/2024 12:52 PM EDT [facility] Note: A resident was involved in the service. I attest I examined the relevant preparations for the specimens and confirmed the diagnosis or interpretation. 03/17/2024 12:52 PM EDT [facility] Tissue Skin structure / Unknown 03/15/2024 10:20 AM EDT 03/15/2024 10:20 AM EDT us Hernan Silvestre MD LAB PATHOLOGY ORDERABLES F inal Result [facility] [address] [place] [address] documented in this encounter Visit Diagnoses Diagnosis Neoplasm of uncertain behavior of skin documented in this encounter Care Teams Insurance Business Analyst Relationship Specialty Start Date End Date Jeoy Whaley APRN [address] [place] [address] PCP - General 06/27/23 Diego Truong MD [address] [place] [address] Referring Physician 03/01/24 Hernan Silvestre MD [address] [phone] Surgeon Surgical Oncology 03/01/24 documented as of this encounter
--- OUTSIDE RECORDS SUMMARY | 2025-03-04 12:50 | XMS_ITS | Clinical Summary ---
Author Organization Healthcare Address [address] [place] [address] Care Team Providers Care Communications Scientist Name Role Phone Diego Truong MD Unavailable [phone] Hernan Silvestre MD Unavailable [phone] Joey Whaley APRN Primary Care Provider [phone] Allergies Active Allergy Reactions Criticality Noted Date Comments Penicillin G Rash Low 02/23/2024 Medications Multiple Vitamin (multivitamin) capsule Take 1 capsule by mouth 1 (one) time each day. Active acetaminophen (Tylenol) 500 MG tablet Take 2 tablets (1,000 mg) by mouth every 6 (six) hours if needed for pain. 100 tablet 04/18/20 24 Active ibuprofen 600 MG tablet Take 1 tablet (600 mg) by mouth every 6 (six) hours if needed for mild pain. 50 tablet 04/18/20 24 Active senna-docusate sodium (Senokot-S) 8.6-50 MG tablet [...] Wellness (AWV) 1957 [facility]-/Child/Adol SDOH Screenings 1957 [id number] Vaccine (#1) 1962 [facility]Y- SDOH Screenings 1975 [...] complete this topic Insurance [place] [address] Care Teams Communications Scientist Relationship Specialty Start Date End Date Joey Whaley APRN [address] [place] [address] PCP - General 06/27/23 Diego Truong MD [address] [place] [address] Referring Physician 03/01/24 Hernan Silvestre MD [address] [address] Surgeon Surgical Oncology 03/01/24
[2025-03-04 13:05] LABS: Hematocrit 24.1 % (42.0-52.0); Hemoglobin 7.1 g/dL (14.1-18.0); Immature Granulocytes % 0.4 %; Mean Corpuscular HGB Conc 29.5 g/dL (31.8-35.4); Mean Corpuscular Hemoglobin 24.6 pg (27.0-31.2); Mean Corpuscular Volume 83.4 fl (80-94); Nucleated Red Blood Cells % 0 %; Platelet Count 588 K/mm3 (142-424); Red Blood Count 2.89 M/mm3 (4.60-6.20); Red Cell Distribution Width-SD 59.7 fL; White Blood Count 7.7 K/mm3 (4.8-10.8)
--- NOTE | 2025-03-04 14:10 | PC.NURSE ---
1248 Patient here for labs only. Labs collected as ordered, CBC,CMP, iron & TIBC, ferritin, LDH per written/ambulatory orders; venipuncture to R AC x1 stick with butterfly needle per Mary Conroy, nurse [employer]. Patient tolerated well with no problems noted.
[2025-03-04 14:12] LABS: Albumin Level 3.9 g/dl (3.5-5.0); Chloride 111 mmol/L (98-107)
[2025-03-04 14:13] LABS: Potassium 4.0 mmoL/L (3.5-5.1); Sodium 142 mmol/L (136-145)
[2025-03-04 14:15] LABS: Alanine Aminotransferase 12 U/L (12-78); Albumin/Globulin Ratio 1.4 (1.1-1.8); Alkaline Phosphatase 64 U/L (38-126); Anion Gap 10.0 mEq/L (5-15); Aspartate Amino Transferase 22 U/L (17-59); Bilirubin,Total 0.4 mg/dl (0.2-1.3); Blood Urea Nitrogen 16 mg/dl (9-20); Carbon Dioxide 25 mmol/L (22.0-30.0); Creatinine,Serum 0.90 mg/dl (0.66-1.25); Estimated Glomerular Filt Rate 84 ml/min (>60); GFR (African American) 102 ML/MIN (>60); Globulin 2.7 g/dL (1.3-3.2); Total Protein,Serum 6.6 g/dl (6.3-8.2)
[2025-03-04 14:16] LABS: Calcium 9.3 mg/dl (8.4-10.2); Glucose 98 mg/dl (74-100); Iron 27 ug/dL (49-181)
[2025-03-04 14:26] LABS: Total Iron Binding Capacity 336 ug/dL (261-462)
[2025-03-04 14:52] LABS: Ferritin 10.5 ng/ml (17.9-464)
== END 2025-03-04 12:55 | disposition home or self-care (01) ==
LOC: INF 12:48
PROVIDERS: PCP Nurse Practitioner Family; Visit Provider Internal Medicine Medical Oncology
DX: C79.89 Secondary malignant neoplasm of other specified sites (principal)
CPT/HCPCS: 36415; 80053; 82728; 83540; 83550; 83615; 85025

== ENCOUNTER 2025-03-05 09:00 | Outpatient (CLI) | payer MEDICARE, MEDICAID, SELFPAY ==
--- OUTSIDE RECORDS SUMMARY | 2025-03-05 09:09 | XMS_ITS | Clinical Summary ---
Author Organization Healthcare Address [address] [place] [address] Care Team Providers Care Back Filler Operator Name Role Phone Diego Truong MD Unavailable [phone] Hernan Silvestre MD Unavailable [phone] Joey Whaley APRN Primary Care Provider [phone] Allergies Active Allergy Reactions Criticality Noted Date [...] Wellness (AWV) 1957 [facility]-/Child/Adol SDOH Screenings 1957 [id number] Vaccine (#1) 1962 [facility]Y- SDOH Screenings 1975 [...] complete this topic Insurance [place] [address] Care Teams Back Filler Operator Relationship Specialty Start Date End Date Joey Whaley APRN [address] [place] [address] PCP - General 06/27/23 Diego Truong MD [address] [place] [address] Referring Physician 03/01/24 Hernan Silvestre MD [address] [address] Surgeon Surgical Oncology 03/01/24
--- OUTSIDE RECORDS SUMMARY | 2025-03-05 09:09 | XMS_ITS | Encounter Summary ---
Author Organization Healthcare Address [address] [place] [address] Care Team Providers Care Armhole Raiser Lockstitch Name Role Phone Diego Truong MD Unavailable [phone] Hernan Silvestre MD Unavailable [phone] Jovana Yesitabby Erickson APRN Primary Care Provider [phone] Encounter Details Date Type Department Care Team (Late st Contact Info) Description 03/15/2024 Lab Requisition [facility] [address] [place] [address] Hernan Silvestre MD 800 [facility] [address] [place] [address] Neoplasm of uncertain behavior of [...] EDT) Case Report [facility] Pathology Consult Case: [id number] Authorizing Provider: Hernan Silvestre MD Collected: 03/15/2024 1020 Ordering Location: [facility] Received: 03/15/2024 1020 Pathologist: Oswaldo Sanabria MD Specimen: Skin, [id number] 03/17/2024 12:52 PM EDT [facility] Final Diagnosis SKIN, RIGHT FOREARM, (OUTSIDE CASE : [id number] COLLECTED ON 02/23/2024), EXCISION: - INVASIVE ULCERATED MALIGNANT MELANOMA, NODULAR GROWTH PATTERN, WITH ULCERATION (pT4b). - BRESLOW THICKNESS: AT LEAST 20 MM (PER OUTSIDE PATHOLOGY REPORT) - TOM'S LEVEL: AT LEAST IV - MITOTIC COUNT: MORE THAN 13 MITOSES/1 mm2 - PER OUTSIDE PATHOLOGY REPORT THE LESION COMES TO WITHIN 1 MM OF DEEP TISSUE EDGE. 03/17/2024 12:52 PM EDT [facility] at 1252 EDT Clinical Information D48.5 - Neoplasm of uncertain behavior of skin [ICD-10-CM] 03/17/2024 12:52 PM EDT [facility] Gross Description A. [id number] Received along with a corresponding pathology report from [facility] is 1 slide labeled outside case: [id number] collected on 02/23/2024. 03/17/2024 12:52 PM EDT [facility] Note: A resident was involved in the service. I attest I examined the relevant preparations for the specimens and confirmed the diagnosis or interpretation. 03/17/2024 12:52 PM EDT [facility] Tissue Skin structure / Unknown 03/15/2024 10:20 AM EDT 03/15/2024 10:20 AM EDT us Hernan Silvestre MD LAB PATHOLOGY ORDERABLES F inal Result [facility] [address] [place] [address] documented in this encounter Visit Diagnoses Diagnosis Neoplasm of uncertain behavior of skin documented in this encounter Care Teams Armhole Raiser Lockstitch Relationship Specialty Start Date End Date Joey Whaley APRN [address] [place] [address] PCP - General 06/27/23 Diego Truong MD [address] [place] [address] Referring Physician 03/01/24 Hernan Silvestre MD [address] [phone] Surgeon Surgical Oncology 03/01/24 documented as of this encounter
--- NOTE | 2025-03-05 09:30 | MR_ITS ---
FINAL REPORT TECHNIQUE: Multiplanar and multisequence imaging of the brain was obtained before and after contrast administration. CLINICAL HISTORY: New Dx. melanoma FINDINGS: Brain parenchymal: There is no mass effect or midline shift. There are a few scattered foci of subcortical T2 to abnormalities. The cerebellum and brainstem are without acute abnormality. Ventricles: The ventricles are symmetric in size and configuration without hydrocephalus. Extra-axial spaces: No extra-axial fluid collections. Diffusion imaging: No areas of restricted diffusion to suggest acute infarct. Flow voids: Flow voids within the major intracranial vessels are preserved. Soft tissues: Soft tissues are without acute abnormality. Post contrast imaging: No abnormal enhancement. IMPRESSION: No acute intracranial abnormality and no pathologic contrast enhancement. Few scattered foci of subcortical T2 abnormalities are nonspecific, favor chronic small vessel ischemia. Reviewed, Interpreted and Dictated by Ghazala Ashford MD Transcribed by Rafaela Haines Authenticated and [facility]
[2025-03-05] MEDS: GADOTERIDOL INJ 20ML SYRINGE 14 ML IV (09:50)
[2025-03-05] MEDS: SODIUM CHLORIDE 0.9% 10ML SYR (RAD ONLY) 10 ML IV (09:50)
== END 2025-03-05 23:59 | disposition home or self-care (01) ==
LOC: RAD 09:01
PROVIDERS: PCP Nurse Practitioner Family; Visit Provider Internal Medicine Medical Oncology
DX: C43.9 Malignant melanoma of skin, unspecified (principal); C78.80 Secondary malignant neoplasm of unspecified digestive organ; R90.89 Other abnormal findings on diagnostic imaging of central nervous system
CPT/HCPCS: 70553; A9576

== ENCOUNTER 2025-03-13 12:43 | Outpatient (CLI) | payer MEDICARE, MEDICAID, SELFPAY ==
--- OUTSIDE RECORDS SUMMARY | 2025-03-13 12:48 | XMS_ITS | Encounter Summary ---
Author Organization Healthcare Address [address] [place] [address] Care Team Providers Care Education Manager Name Role Phone Diego Truong MD Unavailable [phone] Hernan Silvestre MD Unavailable [phone] Jovana Yesitabby Erickson APRN Primary Care Provider [phone] Encounter Details Date Type Department Care Team (Late st Contact Info) Description 03/15/2024 Lab Requisition [facility] [address] [place] [address] Hernan Silvestre MD [address] [facility] [address] [place] [address] Neoplasm of uncertain behavior of [...] EDT) Case Report [facility] Pathology Consult Case: [id number] Authorizing Provider: Hernan Silvestre MD Collected: 03/15/2024 1020 Ordering Location: [facility] Received: 03/15/2024 1020 Pathologist: Oswaldo Sanabria MD Specimen: Skin, [id number] 03/17/2024 12:52 PM EDT [facility] Final Diagnosis SKIN, RIGHT FOREARM, (OUTSIDE CASE : [id number] COLLECTED ON 02/23/2024), EXCISION: - INVASIVE ULCERATED MALIGNANT MELANOMA, NODULAR GROWTH PATTERN, WITH ULCERATION (pT4b). - BRESLOW THICKNESS: AT LEAST 20 MM (PER OUTSIDE PATHOLOGY REPORT) - TOM'S LEVEL: AT LEAST IV - MITOTIC COUNT: MORE THAN 13 MITOSES/1 mm2 - PER OUTSIDE PATHOLOGY REPORT THE LESION COMES TO WITHIN 1 MM OF DEEP TISSUE EDGE. 03/17/2024 12:52 PM EDT [facility] at 1252 EDT Clinical Information D48.5 - Neoplasm of uncertain behavior of skin [ICD-10-CM] 03/17/2024 12:52 PM EDT [facility] Gross Description A. [id number] Received along with a corresponding pathology report from [facility] is 1 slide labeled outside case: [id number] collected on 02/23/2024. 03/17/2024 12:52 PM EDT [facility] Note: A resident was involved in the service. I attest I examined the relevant preparations for the specimens and confirmed the diagnosis or interpretation. 03/17/2024 12:52 PM EDT [facility] Tissue Skin structure / Unknown 03/15/2024 10:20 AM EDT 03/15/2024 10:20 AM EDT us Hernan Silvestre MD LAB PATHOLOGY ORDERABLES F inal Result [facility] [address] [place] [address] documented in this encounter Visit Diagnoses Diagnosis Neoplasm of uncertain behavior of skin documented in this encounter Care Teams Education Manager Relationship Specialty Start Date End Date Joey Whaley APRN [address] [place] [address] PCP - General 06/27/23 Diego Truong MD [address] [place] [address] Referring Physician 03/01/24 Hernan Silvestre MD [address] [phone] Surgeon Surgical Oncology 03/01/24 documented as of this encounter
--- OUTSIDE RECORDS SUMMARY | 2025-03-13 12:48 | XMS_ITS | Clinical Summary ---
Author Organization Healthcare Address [address] [place] [address] Care Team Providers Care Event Lighting Specialist Name Role Phone Diego Truong MD Unavailable [phone] Hernan Silvestre MD Unavailable [phone] Joey Whaley APRN Primary Care Provider [phone] Allergies Active Allergy Reactions Criticality Noted Date [...] Screening 1957 [facility]Y-Medicare Annual Wellness (AWV) 1957 [facility]-Infant/Child/Adol SDOH Screenings 1957 [id number] Vaccine (#1) 1962 [facility]Y- SDOH Screenings 1975 [...] complete this topic Insurance [place] [address] Care Teams Event Lighting Specialist Relationship Specialty Start Date End Date Joey Whaley APRN [address] [place] [address] PCP - General 06/27/23 Diego Truong MD [address] [place] [address] Referring Physician 03/01/24 Hernan Silvestre MD [address] [address] Surgeon Surgical Oncology 03/01/24
[2025-03-13 12:57] VITALS: BP 124/67; PULSE 74; RESP 20; TEMP 36.7; O2SAT 98
[2025-03-13] MEDS: IRON SUCROSE COMPLEX 200 MG in 0.9 % SODIUM CHLORIDE 100 ML 220 MG IV (12:57)
[2025-03-13] MEDS: SODIUM CHLORIDE 0.9% 10ML FLUSH SYRINGE 10 ML IV (12:57)
[2025-03-13 13:41] VITALS: BP 123/82; PULSE 72; RESP 20; O2SAT 98
== END 2025-03-13 13:41 | disposition home or self-care (01) ==
LOC: INF 12:45
PROVIDERS: PCP Nurse Practitioner Family; Visit Provider Internal Medicine Medical Oncology
DX: D50.0 Iron deficiency anemia secondary to blood loss (chronic) (principal)
CPT/HCPCS: 96365; J1756

== ENCOUNTER 2025-03-14 13:46 | Outpatient (CLI) | payer MEDICARE, MEDICAID, SELFPAY ==
--- OUTSIDE RECORDS SUMMARY | 2025-03-14 13:50 | XMS_ITS | Encounter Summary ---
Author Organization Healthcare Address [address] [place] [address] Care Team Providers Care Furnace Operator Name Role Phone Diego Truong MD Unavailable [phone] Hernan Silvestre MD Unavailable [phone] Jovana Yesitabby Erickson APRN Primary Care Provider [phone] Encounter Details Date Type Department Care Team (Late st Contact Info) Description 03/15/2024 Lab Requisition [facility] [address] [place] [address] Hernan Silvestre MD 800 [facility] [address] [place] [address] Neoplasm of uncertain behavior of [...] EDT) Case Report [facility] Pathology Consult Case: [id number] Authorizing Provider: Hernan Silvestre MD Collected: 03/15/2024 1020 Ordering Location: [facility] Received: 03/15/2024 1020 Pathologist: Oswaldo Sanabria MD Specimen: Skin, [id number] 03/17/2024 12:52 PM EDT [facility] Final Diagnosis SKIN, RIGHT FOREARM, (OUTSIDE CASE : [id number] COLLECTED ON 02/23/2024), EXCISION: - INVASIVE ULCERATED MALIGNANT MELANOMA, NODULAR GROWTH PATTERN, WITH ULCERATION (pT4b). - BRESLOW THICKNESS: AT LEAST 20 MM (PER OUTSIDE PATHOLOGY REPORT) - TOM'S LEVEL: AT LEAST IV - MITOTIC COUNT: MORE THAN 13 MITOSES/1 mm2 - PER OUTSIDE PATHOLOGY REPORT THE LESION COMES TO WITHIN 1 MM OF DEEP TISSUE EDGE. 03/17/2024 12:52 PM EDT [facility] at 1252 EDT Clinical Information D48.5 - Neoplasm of uncertain behavior of skin [ICD-10-CM] 03/17/2024 12:52 PM EDT [facility] Gross Description A. [id number] Received along with a corresponding pathology report from [facility] is 1 slide labeled outside case: [id number] collected on 02/23/2024. 03/17/2024 12:52 PM EDT [facility] Note: A resident was involved in the service. I attest I examined the relevant preparations for the specimens and confirmed the diagnosis or interpretation. 03/17/2024 12:52 PM EDT [facility] Tissue Skin structure / Unknown 03/15/2024 10:20 AM EDT 03/15/2024 10:20 AM EDT us Hernan Silvestre MD LAB PATHOLOGY ORDERABLES F inal Result [facility] [address] [place] [address] documented in this encounter Visit Diagnoses Diagnosis Neoplasm of uncertain behavior of skin documented in this encounter Care Teams Furnace Operator Relationship Specialty Start Date End Date Joey Whaley APRN [address] [place] [address] PCP - General 06/27/23 Diego Truong MD [address] [place] [address] Referring Physician 03/01/24 Hernan Silvestre MD [address] [phone] Surgeon Surgical Oncology 03/01/24 documented as of this encounter
--- OUTSIDE RECORDS SUMMARY | 2025-03-14 13:50 | XMS_ITS | Clinical Summary ---
Author Organization Healthcare Address [address] [place] [address] Care Team Providers Care Health Services Director Name Role Phone Diego Truong MD Unavailable [phone] Hernan Silvestre MD Unavailable [phone] Joey Whaley APRN Primary Care Provider [phone] Allergies Active Allergy Reactions Criticality Noted Date [...] Wellness (AWV) 1957 [facility]-Infant/Child/Adol SDOH Screenings 1957 [id number] Vaccine (#1) 1962 [facility]Y- SDOH Screenings 1975 [...] complete this topic Insurance [place] [address] Care Teams Health Services Director Relationship Specialty Start Date End Date Joey Whaley APRN [address] [place] [address] PCP - General 06/27/23 Diego Truong MD [address] [place] [address] Referring Physician 03/01/24 Hernan Silvestre MD [address] [address] Surgeon Surgical Oncology 03/01/24
--- NOTE | 2025-03-14 14:45 | CT_ITS ---
FINAL REPORT TECHNIQUE: Thin section axial CT with contrast with multiplanar reconstruction This study was performed with techniques to keep radiation doses as low as reasonably achievable, (ALARA). Individualized dose reduction techniques using automated exposure control or adjustment of mA and/or kV according to the patient's size were employed. CLINICAL HISTORY: dilated ascending aorta COMPARISON: None FINDINGS: CTA CHEST: There are no prior films available for comparison purposes. There is a borderline in size fusiform aneurysm of the ascending aorta which measures 39 mm and the mid ascending aorta, and 41 mm in the aortic sinus. The proximal descending aorta measures 31 mm in diameter. 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 No thoracic aortic dissection is identified. There is a right upper lobe nodule, measuring 17 mm in size. Another right upper lobe medial 13 mm nodule is noted in the mid lung, and a 21 mm nodule is noted in the left lower lobe. Minimal bibasilar scar is present. There is an enhancing mass in the posterior right liver measuring 25 mm in size, which may represent a hemangioma or a metastasis. Bilateral adrenal focal enlargement is identified, which may represent adenomas or metastatic disease. IMPRESSION: 1. At least 3 lung lesions, suspicious for neoplasm, metastases strongly favored, but synchronous primary lung neoplasms are a possibility. 2. Liver and adrenal lesions, recommend MR follow-up with contrast for further investigation. 3. PET/CT is suggested as well. Reviewed, Interpreted and Dictated by Farrah Sanchez MD Transcribed by Chelle Woo Authenticated and [facility]
[2025-03-14] MEDS: IOPAMIDOL-370 (76%);100ML BOTTLE 85 ML IV (14:56)
[2025-03-14] MEDS: 0.9 % SODIUM CHLORIDE 50 ML VIAL IV (14:56)
[2025-03-14] MEDS: SODIUM CHLORIDE 0.9% 10ML SYR (RAD ONLY) 10 ML IV (14:56)
== END 2025-03-14 23:59 | disposition home or self-care (01) ==
LOC: RAD 13:47
PROVIDERS: PCP Nurse Practitioner Family; Visit Provider Nurse Practitioner Family
DX: K76.89 Other specified diseases of liver (principal); E27.8 Other specified disorders of adrenal gland; I77.810 Thoracic aortic ectasia; I35.1 Nonrheumatic aortic (valve) insufficiency; R91.8 Other nonspecific abnormal finding of lung field
CPT/HCPCS: 71275; Q9967

== ENCOUNTER 2025-03-20 12:06 | Outpatient (CLI) | payer MEDICARE, MEDICAID, SELFPAY ==
--- OUTSIDE RECORDS SUMMARY | 2025-03-20 12:10 | XMS_ITS | Encounter Summary ---
Author Organization Healthcare Address [address] [place] [address] Care Team Providers Care Ham Stripper Name Role Phone Diego Truong MD Unavailable [phone] Hernan Silvestre MD Unavailable [phone] Jovana Yesitabby Erickson APRN Primary Care Provider [phone]- [phone] Encounter Details Date Type Department Care Team (Late st Contact Info) Description 03/15/2024 Lab Requisition [facility] [address] [place] [address] Hernan Silvestre MD 800 [facility] [address] [place] [address] Neoplasm of uncertain behavior of [...] EDT) Case Report [facility] Consult Case: [id number] Authorizing Provider: Hernan Silvestre MD Collected: 03/15/2024 1020 Ordering Location: [facility] Received: 03/15/2024 1020 Pathologist: Oswaldo Sanabria MD Specimen: Skin, [id number] 03/17/2024 12:52 PM EDT [facility] Final Diagnosis SKIN, RIGHT FOREARM, (OUTSIDE CASE : [id number] COLLECTED ON 02/23/2024), EXCISION: - INVASIVE ULCERATED MALIGNANT MELANOMA, NODULAR GROWTH PATTERN, WITH ULCERATION (pT4b). - BRESLOW THICKNESS: AT LEAST 20 MM (PER OUTSIDE PATHOLOGY REPORT) - TOM'S LEVEL: AT LEAST IV - MITOTIC COUNT: MORE THAN 13 MITOSES/1 mm2 - PER OUTSIDE PATHOLOGY REPORT THE LESION COMES TO WITHIN 1 MM OF DEEP TISSUE EDGE. 03/17/2024 12:52 PM EDT [facility] at 1252 EDT Clinical Information D48.5 - Neoplasm of uncertain behavior of skin [ICD-10-CM] 03/17/2024 12:52 PM EDT [facility] Gross Description A. [id number] Received along with a corresponding pathology report from [facility] is 1 slide labeled outside case: [id number] collected on 02/23/2024. 03/17/2024 12:52 PM EDT [facility] Note: A resident was involved in the service. I attest I examined the relevant preparations for the specimens and confirmed the diagnosis or interpretation. 03/17/2024 12:52 PM EDT [facility] Tissue Skin structure / Unknown 03/15/2024 10:20 AM EDT 03/15/2024 10:20 AM EDT us Hernan Silvestre MD LAB PATHOLOGY ORDERABLES F inal Result [facility] [address] [place] [address] documented in this encounter Visit Diagnoses Diagnosis Neoplasm of uncertain behavior of skin documented in this encounter Care Teams Ham Stripper Relationship Specialty Start Date End Date Joey Whaley APRN [address] [place] [address] PCP - General 06/27/23 Diego Truong MD [address] [place] [address] Referring Physician 03/01/24 Hernan Silvestre MD [address] [phone] Surgeon Surgical Oncology 03/01/24 documented as of this encounter
--- OUTSIDE RECORDS SUMMARY | 2025-03-20 12:10 | XMS_ITS | Clinical Summary ---
Author Organization Healthcare Address [address] [place] [address] Care Team Providers Care Casing Crew Name Role Phone Diego Truong MD Unavailable [phone] Hernan Silvestre MD Unavailable [phone] Joey Whaley APRN Primary Care Provider [phone] Allergies Active Allergy Reactions Criticality Noted Date [...] (one) time each day. 14 tablet 04/18/20 Active oxyCODONE (Roxicodone) 5 MG immediate release [...] Wellness (AWV) 1955 [facility]-Infant/Child/Adol SDOH Screenings 1955 [id number] Vaccine (#1) 1962 [facility]- SDOH Screenings 1975 [...] complete this topic Insurance [place] [address] Care Teams Casing Crew Relationship Specialty Start Date End Date Joey Wahley APRN [address] [place] [address] PCP - General 06/27/23 Diego Truong MD [address] [place] [address] Referring Physician 03/01/24 Hernan Silvestre MD [address] [address] Surgeon Surgical Oncology 03/01/24
[2025-03-20] MEDS: IRON SUCROSE COMPLEX 200 MG in 0.9 % SODIUM CHLORIDE 100 ML 220 MG IV (12:19)
[2025-03-20 12:25] VITALS: BP 136/68; PULSE 72; RESP 18; TEMP 36.8; O2SAT 97
[2025-03-20 12:49] LABS: Hematocrit 25.6 % (42.0-52.0); Hemoglobin 7.4 g/dL (14.1-18.0); Immature Granulocytes % 0.5 %; Mean Corpuscular HGB Conc 28.9 g/dL (31.8-35.4); Mean Corpuscular Hemoglobin 24.2 pg (27.0-31.2); Mean Corpuscular Volume 83.7 fl (80-94); Nucleated Red Blood Cells % 0 %; Platelet Count 365 K/mm3 (142-424); Red Blood Count 3.06 M/mm3 (4.60-6.20); Red Cell Distribution Width-SD 64.0 fL; White Blood Count 8.2 K/mm3 (4.8-10.8)
[2025-03-20 12:58] VITALS: BP 130/76; PULSE 72; O2SAT 100
== END 2025-03-20 23:59 | disposition home or self-care (01) ==
LOC: INF 12:08
PROVIDERS: PCP Nurse Practitioner Family; Visit Provider Internal Medicine Medical Oncology
DX: C43.9 Malignant melanoma of skin, unspecified (principal); D50.0 Iron deficiency anemia secondary to blood loss (chronic)
CPT/HCPCS: 36415; 85025; 96365; J1756

== ENCOUNTER 2025-03-27 13:07 | Outpatient (CLI) | payer MEDICARE, MEDICAID, SELFPAY ==
--- OUTSIDE RECORDS SUMMARY | 2025-03-27 13:11 | XMS_ITS | Encounter Summary ---
Author Organization Healthcare Address [address] [place] [address] Care Team Providers Care Green Meat Packer Name Role Phone Diego Truong MD Unavailable [phone] Hernan Silvestre MD Unavailable [phone] Jovana Yesitabby Erickson APRN Primary Care Provider [phone]- [phone] Encounter Details Date Type Department Care Team (Late st Contact Info) Description 03/15/2024 Lab Requisition [facility] [address] [place] [address] Hernan Silvestre MD 800 [facility] [address] [place] [address] Neoplasm of uncertain behavior of [...] EDT) Case Report [facility] Consult Case: [id number] Authorizing Provider: Hernan Silvestre MD Collected: 03/15/2024 1020 Ordering Location: [facility] Received: 03/15/2024 1020 Pathologist: Oswaldo Sanabria MD Specimen: Skin, [id number] 03/17/2024 12:52 PM EDT [facility] Final Diagnosis SKIN, RIGHT FOREARM, (OUTSIDE CASE : [id number] COLLECTED ON 02/23/2024), EXCISION: - INVASIVE ULCERATED MALIGNANT MELANOMA, NODULAR GROWTH PATTERN, WITH ULCERATION (pT4b). - BRESLOW THICKNESS: AT LEAST 20 MM (PER OUTSIDE PATHOLOGY REPORT) - TOM'S LEVEL: AT LEAST IV - MITOTIC COUNT: MORE THAN 13 MITOSES/1 mm2 - PER OUTSIDE PATHOLOGY REPORT THE LESION COMES TO WITHIN 1 MM OF DEEP TISSUE EDGE. 03/17/2024 12:52 PM EDT [facility] at 1252 EDT Clinical Information D48.5 - Neoplasm of uncertain behavior of skin [ICD-10-CM] 03/17/2024 12:52 PM EDT [facility] Gross Description A. [id number] Received along with a corresponding pathology report from [facility] is 1 slide labeled outside case: [id number] collected on 02/23/2024. 03/17/2024 12:52 PM EDT [facility] Note: A resident was involved in the service. I attest I examined the relevant preparations for the specimens and confirmed the diagnosis or interpretation. 03/17/2024 12:52 PM EDT [facility] Tissue Skin structure / Unknown 03/15/2024 10:20 AM EDT 03/15/2024 10:20 AM EDT us Hernan Silvestre MD LAB PATHOLOGY ORDERABLES F inal Result [facility] [address] [place] [address] documented in this encounter Visit Diagnoses Diagnosis Neoplasm of uncertain behavior of skin documented in this encounter Care Teams Green Meat Packer Relationship Specialty Start Date End Date Joey Whaley APRN [address] [place] [address] PCP - General 06/27/23 Diego Truong MD [address] [place] [address] Referring Physician 03/01/24 Hernan Silvestre MD [address] [phone] Surgeon Surgical Oncology 03/01/24 documented as of this encounter
--- OUTSIDE RECORDS SUMMARY | 2025-03-27 13:11 | XMS_ITS | Clinical Summary ---
Author Organization Healthcare Address [address] [place] [address] Care Team Providers Care Sample Grinder Name Role Phone Diego Truong MD Unavailable [phone] Hernan Silvestre MD Unavailable [phone] Joey Whaley APRN Primary Care Provider [phone] Allergies Active Allergy Reactions Criticality Noted Date [...] Wellness (AWV) 1955 [facility]-Infant/Child/Adol SDOH Screenings 1955 [id number] Vaccine (#1) 1962 [facility]- SDOH Screenings 1975 [...] complete this topic Insurance [place] Care Teams Sample Grinder Relationship Specialty Start Date End Date Joey Whaley APRN [address] [place] [address] PCP - General 06/27/23 Diego Truong MD [address] [place] [address] Referring Physician 03/01/24 Hernan Silvestre MD [address] [address] Surgeon Surgical Oncology 03/01/24
[2025-03-27] MEDS: IRON SUCROSE COMPLEX 200 MG in 0.9 % SODIUM CHLORIDE 100 ML 220 MG IV (13:24)
[2025-03-27 13:25] VITALS: BP 114/62; PULSE 62; RESP 18; TEMP 36.4; O2SAT 100
[2025-03-27 13:27] LABS: Hematocrit 26.0 % (42.0-52.0); Hemoglobin 7.4 g/dL (14.1-18.0); Immature Granulocytes % 0.5 %; Mean Corpuscular HGB Conc 28.5 g/dL (31.8-35.4); Mean Corpuscular Hemoglobin 23.6 pg (27.0-31.2); Mean Corpuscular Volume 83.1 fl (80-94); Nucleated Red Blood Cells % 0 %; Platelet Count 617 K/mm3 (142-424); Red Blood Count 3.13 M/mm3 (4.60-6.20); Red Cell Distribution Width-SD 65.4 fL; White Blood Count 8.6 K/mm3 (4.8-10.8)
[2025-03-27 13:40] LABS: Alanine Aminotransferase 46 U/L (12-78); Albumin Level 3.4 g/dl (3.5-5.0); Albumin/Globulin Ratio 1.4 (1.1-1.8); Alkaline Phosphatase 95 U/L (38-126); Anion Gap 13.5 mEq/L (5-15); Aspartate Amino Transferase 31 U/L (17-59); Bilirubin,Total 0.4 mg/dl (0.2-1.3); Blood Urea Nitrogen 19 mg/dl (9-20); Calcium 8.8 mg/dl (8.4-10.2); Carbon Dioxide 24 mmol/L (22.0-30.0); Chloride 107 mmol/L (98-107); Creatinine,Serum 0.90 mg/dl (0.66-1.25); Estimated Glomerular Filt Rate 84 ml/min (>60); GFR (African American) 102 ML/MIN (>60); Globulin 2.4 g/dL (1.3-3.2); Glucose 101 mg/dl (74-100); Potassium 4.5 mmoL/L (3.5-5.1); Sodium 140 mmol/L (136-145); Total Protein,Serum 5.8 g/dl (6.3-8.2)
[2025-03-27 13:50] VITALS: BP 121/64; PULSE 60
[2025-03-27 14:40] VITALS: BP 114/65; PULSE 64
[2025-03-27] MEDS: NIVOLUMAB IV (14:45)
[2025-03-27] MEDS: SODIUM CHLORIDE 0.9% IV ×2 (14:45→15:10)
[2025-03-27 15:10] VITALS: BP 121/62; PULSE 61
[2025-03-27] MEDS: IPILIMUMAB IV (15:10)
[2025-03-27 15:15] VITALS: BP 116/59; PULSE 62
[2025-03-27 15:51] VITALS: BP 126/71; PULSE 66
== END 2025-03-27 23:59 | disposition home or self-care (01) ==
LOC: INF 13:08
PROVIDERS: PCP Nurse Practitioner Family; Visit Provider Internal Medicine Medical Oncology
DX: C78.89 Secondary malignant neoplasm of other digestive organs (principal); C80.1 Malignant (primary) neoplasm, unspecified; Z51.11 Encounter for antineoplastic chemotherapy
CPT/HCPCS: 80053; 85025; 96365; 96409; 96411; 96417; J1756; J9228; J9299

== ENCOUNTER 2025-04-03 12:54 | Outpatient (CLI) | payer MEDICARE, MEDICAID, SELFPAY ==
[2025-04-03 13:04] VITALS: BP 101/61; PULSE 73; RESP 16; TEMP 36.3; O2SAT 97; BMI 24.1
[2025-04-03] MEDS: IRON SUCROSE COMPLEX 200 MG in 0.9 % SODIUM CHLORIDE 100 ML 220 MG IV (13:05)
[2025-04-03] MEDS: SODIUM CHLORIDE 0.9% 10ML FLUSH SYRINGE 10 ML IV (13:05)
[2025-04-03 13:09] LABS: Hematocrit 29.2 % (42.0-52.0); Hemoglobin 8.2 g/dL (14.1-18.0); Immature Granulocytes % 0.6 %; Mean Corpuscular HGB Conc 28.1 g/dL (31.8-35.4); Mean Corpuscular Hemoglobin 23.5 pg (27.0-31.2); Mean Corpuscular Volume 83.7 fl (80-94); Nucleated Red Blood Cells % 0 %; Platelet Count 617 K/mm3 (142-424); Red Blood Count 3.49 M/mm3 (4.60-6.20); Red Cell Distribution Width-SD 67.0 fL; White Blood Count 10.4 K/mm3 (4.8-10.8)
[2025-04-03 13:41] VITALS: BP 109/72; PULSE 65; RESP 18; TEMP 36.3; O2SAT 97
== END 2025-04-03 13:54 | disposition home or self-care (01) ==
LOC: INF 12:56
PROVIDERS: PCP Nurse Practitioner Family; Visit Provider Internal Medicine Medical Oncology
DX: C43.9 Malignant melanoma of skin, unspecified (principal); D50.0 Iron deficiency anemia secondary to blood loss (chronic)
CPT/HCPCS: 85025; 96365; J1756

== ENCOUNTER 2025-04-10 13:02 | Outpatient (CLI) | payer MEDICARE, MEDICAID, SELFPAY ==
--- OUTSIDE RECORDS SUMMARY | 2025-04-10 13:07 | XMS_ITS | Clinical Summary ---
Author Organization Healthcare Address [address] [place] [address] Care Team Providers Care Lead Shipper Name Role Phone Diego Truong MD Unavailable [phone] Hernan Silvestre MD Unavailable [phone] Joey Whaley APRN Primary Care Provider [phone] Allergies Active Allergy Reactions Criticality Noted Date [...] Wellness (AWV) 1955 [facility]-Infant/Child/Adol SDOH Screenings 1955 [id number] Vaccine (#1) 1962 [facility]- SDOH Screenings 1975 [...] complete this topic Insurance [place] [address] Care Teams Lead Shipper Relationship Specialty Start Date End Date Joey Whaley APRN [address] [place] [address] PCP - General 06/27/23 Diego Truong MD [address] [place] [address] Referring Physician 03/01/24 Hernan Silvestre MD [address] [address] Surgeon Surgical Oncology 03/01/24
--- OUTSIDE RECORDS SUMMARY | 2025-04-10 13:07 | XMS_ITS | Encounter Summary ---
Author Organization Healthcare Address [address] [place] [address] Care Team Providers Care Paint Line Operator Name Role Phone Diego Truong MD Unavailable [phone] Hernan Silvestre MD Unavailable [phone] Jovana Yesitabby Erickson APRN Primary Care Provider [phone] Encounter Details Date Type Department Care Team (Late st Contact Info) Description 03/15/2024 Lab Requisition [facility] [address] [place] [address] Hernan Silvestre MD 800 [facility] [address] [place] [address] Neoplasm of uncertain behavior of [...] EDT) Case Report [facility] Consult Case: [id number] Authorizing Provider: Hernan Silvestre MD Collected: 03/15/2024 1020 Ordering Location: [facility] Received: 03/15/2024 1020 Pathologist: Oswaldo Sanabria MD Specimen: Skin, [id number] 03/17/2024 12:52 PM EDT [facility] Final Diagnosis SKIN, RIGHT FOREARM, (OUTSIDE CASE : [id number] COLLECTED ON 02/23/2024), EXCISION: - INVASIVE ULCERATED MALIGNANT MELANOMA, NODULAR GROWTH PATTERN, WITH ULCERATION (pT4b). - BRESLOW THICKNESS: AT LEAST 20 MM (PER OUTSIDE PATHOLOGY REPORT) - TOM'S LEVEL: AT LEAST IV - MITOTIC COUNT: MORE THAN 13 MITOSES/1 mm2 - PER OUTSIDE PATHOLOGY REPORT THE LESION COMES TO WITHIN 1 MM OF DEEP TISSUE EDGE. 03/17/2024 12:52 PM EDT [facility] at 1252 EDT Clinical Information D48.5 - Neoplasm of uncertain behavior of skin [ICD-10-CM] 03/17/2024 12:52 PM EDT [facility] Gross Description A. [id number] Received along with a corresponding pathology report from [facility] is 1 slide labeled outside case: [id number] collected on 02/23/2024. 03/17/2024 12:52 PM EDT [facility] Note: A resident was involved in the service. I attest I examined the relevant preparations for the specimens and confirmed the diagnosis or interpretation. 03/17/2024 12:52 PM EDT [facility] Tissue Skin structure / Unknown 03/15/2024 10:20 AM EDT 03/15/2024 10:20 AM EDT us Hernan Silvestre MD LAB PATHOLOGY ORDERABLES F inal Result [facility] [address] [place] [address] documented in this encounter Visit Diagnoses Diagnosis Neoplasm of uncertain behavior of skin documented in this encounter Care Teams Paint Line Operator Relationship Specialty Start Date End Date Joey Whaley APRN [address] [place] [address] PCP - General 06/27/23 Diego Truong MD [address] [place] [address] Referring Physician 03/01/24 Hernan Silvestre MD [address] [phone] Surgeon Surgical Oncology 03/01/24 documented as of this encounter
[2025-04-10] MEDS: IRON SUCROSE COMPLEX 200 MG in 0.9 % SODIUM CHLORIDE 100 ML 220 MG IV (13:18)
[2025-04-10 13:19] VITALS: BP 113/66; PULSE 71; RESP 20; TEMP 36.6; O2SAT 98
[2025-04-10] MEDS: SODIUM CHLORIDE 0.9% 10ML FLUSH SYRINGE 10 ML IV (13:19)
[2025-04-10 13:26] LABS: Hematocrit 30.1 % (42.0-52.0); Hemoglobin 8.5 g/dL (14.1-18.0); Immature Granulocytes % 0.6 %; Mean Corpuscular HGB Conc 28.2 g/dL (31.8-35.4); Mean Corpuscular Hemoglobin 23.4 pg (27.0-31.2); Mean Corpuscular Volume 82.9 fl (80-94); Nucleated Red Blood Cells % 0 %; Platelet Count 449 K/mm3 (142-424); Red Blood Count 3.63 M/mm3 (4.60-6.20); Red Cell Distribution Width-SD 65.4 fL; White Blood Count 10.8 K/mm3 (4.8-10.8)
[2025-04-10 13:55] VITALS: BP 102/58; PULSE 62; RESP 20; O2SAT 98
== END 2025-04-10 23:59 | disposition home or self-care (01) ==
LOC: INF 13:04
PROVIDERS: PCP Nurse Practitioner Family; Visit Provider Internal Medicine Medical Oncology
DX: C43.9 Malignant melanoma of skin, unspecified (principal); D50.0 Iron deficiency anemia secondary to blood loss (chronic)
CPT/HCPCS: 85025; 96365; J1756

== ENCOUNTER 2025-04-17 10:51 | Outpatient (CLI) | payer MEDICARE, MEDICAID, SELFPAY ==
[2025-04-17 10:52] VITALS: BMI 24.3
[2025-04-17 11:06] LABS: Hematocrit 33.4 % (42.0-52.0); Hemoglobin 9.8 g/dL (14.1-18.0); Immature Granulocytes % 0.6 %; Mean Corpuscular HGB Conc 29.3 g/dL (31.8-35.4); Mean Corpuscular Hemoglobin 24.0 pg (27.0-31.2); Mean Corpuscular Volume 81.7 fl (80-94); Nucleated Red Blood Cells % 0 %; Platelet Count 468 K/mm3 (142-424); Red Blood Count 4.09 M/mm3 (4.60-6.20); Red Cell Distribution Width-SD 65.3 fL; White Blood Count 11.5 K/mm3 (4.8-10.8)
[2025-04-17 11:10] LABS: Albumin Level 3.5 g/dl (3.5-5.0); Chloride 103 mmol/L (98-107); Potassium 4.2 mmoL/L (3.5-5.1); Sodium 137 mmol/L (136-145)
[2025-04-17 11:12] LABS: Blood Urea Nitrogen 14 mg/dl (9-20); Creatinine Clearance Estimated 70 mL/min (50-200); Creatinine,Serum 0.80 mg/dl (0.66-1.25); Estimated Glomerular Filt Rate 96 ml/min (>60); GFR (African American) 116 ML/MIN (>60)
[2025-04-17 11:13] LABS: Alanine Aminotransferase 35 U/L (12-78); Albumin/Globulin Ratio 1.2 (1.1-1.8); Alkaline Phosphatase 104 U/L (38-126); Anion Gap 13.2 mEq/L (5-15); Aspartate Amino Transferase 30 U/L (17-59); Bilirubin,Total 0.4 mg/dl (0.2-1.3); Calcium 9.2 mg/dl (8.4-10.2); Carbon Dioxide 25 mmol/L (22.0-30.0); Globulin 3.0 g/dL (1.3-3.2); Glucose 106 mg/dl (74-100); Total Protein,Serum 6.5 g/dl (6.3-8.2)
--- OUTSIDE RECORDS SUMMARY | 2025-04-17 11:14 | XMS_ITS | Encounter Summary ---
Author Organization Healthcare Address [address] [place] [address] Care Team Providers Care Projector Operator Name Role Phone Diego Truong MD Unavailable [phone] Hernan Silvestre MD Unavailable [phone] Jovana Yesitabby Erickson APRN Primary Care Provider [phone] Encounter Details Date Type Department Care Team (Late st Contact Info) Description 03/15/2024 Lab Requisition [facility] [address] [place] [address] Hernan Silvestre MD 800 [facility] [address] [place] [address] Neoplasm of uncertain behavior of [...] EDT) Case Report [facility] Consult Case: [id number] Authorizing Provider: Hernan Silvestre MD Collected: 03/15/2024 1020 Ordering Location: [facility] Received: 03/15/2024 1020 Pathologist: Oswaldo Sanabria MD Specimen: Skin, [id number] 03/17/2024 12:52 PM EDT [facility] Final Diagnosis SKIN, RIGHT FOREARM, (OUTSIDE CASE : [id number] COLLECTED ON 02/23/2024), EXCISION: - INVASIVE ULCERATED MALIGNANT MELANOMA, NODULAR GROWTH PATTERN, WITH ULCERATION (pT4b). - BRESLOW THICKNESS: AT LEAST 20 MM (PER OUTSIDE PATHOLOGY REPORT) - TOM'S LEVEL: AT LEAST IV - MITOTIC COUNT: MORE THAN 13 MITOSES/1 mm2 - PER OUTSIDE PATHOLOGY REPORT THE LESION COMES TO WITHIN 1 MM OF DEEP TISSUE EDGE. 03/17/2024 12:52 PM EDT [facility] at 1252 EDT Clinical Information D48.5 - Neoplasm of uncertain behavior of skin [ICD-10-CM] 03/17/2024 12:52 PM EDT [facility] Gross Description A. [id number] Received along with a corresponding pathology report from [facility] is 1 slide labeled outside case: [id number] collected on 02/23/2024. 03/17/2024 12:52 PM EDT [facility] Note: A resident was involved in the service. I attest I examined the relevant preparations for the specimens and confirmed the diagnosis or interpretation. 03/17/2024 12:52 PM EDT [facility] Tissue Skin structure / Unknown 03/15/2024 10:20 AM EDT 03/15/2024 10:20 AM EDT us Hernan Silvestre MD LAB PATHOLOGY ORDERABLES F inal Result [facility] [address] [place] [address] documented in this encounter Visit Diagnoses Diagnosis Neoplasm of uncertain behavior of skin documented in this encounter Care Teams Projector Operator Relationship Specialty Start Date End Date Joey Whaley APRN [address] [place] [address] PCP - General 06/27/23 Diego Truong MD [address] [place] [address] Referring Physician 03/01/24 Hernan Silvestre MD [address] [phone] Surgeon Surgical Oncology 03/01/24 documented as of this encounter
--- OUTSIDE RECORDS SUMMARY | 2025-04-17 11:14 | XMS_ITS | Clinical Summary ---
Author Organization Healthcare Address [address] [place] [address] Care Team Providers Care Bag Machine Helper Name Role Phone Diego Truong MD Unavailable [phone] Hernan Silvestre MD Unavailable [phone] Joey Whaley APRN Primary Care Provider [phone] Allergies Active Allergy Reactions Criticality Noted Date [...] Wellness (AWV) 1955 [facility]-Infant/Child/Adol SDOH Screenings 1955 [id number] Vaccine (#1) 1962 [facility]- SDOH Screenings 1975 [...] complete this topic Insurance [place] [address] Care Teams Bag Machine Helper Relationship Specialty Start Date End Date Joey Whaley APRN [address] [place] [address] PCP - General 06/27/23 Diego Truong MD [address] [place] [address] Referring Physician 03/01/24 Hernan Silvestre MD [address] [address] Surgeon Surgical Oncology 03/01/24
[2025-04-17 12:32] VITALS: BP 133/71; PULSE 65; RESP 18; O2SAT 95
[2025-04-17] MEDS: NIVOLUMAB IV (12:32)
[2025-04-17] MEDS: SODIUM CHLORIDE 0.9% IV ×2 (12:32→13:18)
[2025-04-17] MEDS: SODIUM CHLORIDE 0.9% 100ML BAG 100 ML IV (12:32)
[2025-04-17 13:18] VITALS: BP 129/69; PULSE 61; RESP 18; O2SAT 95
[2025-04-17] MEDS: IPILIMUMAB IV (13:18)
[2025-04-17 14:02] VITALS: BP 149/68; PULSE 73; RESP 18; O2SAT 95
== END 2025-04-17 23:59 | disposition home or self-care (01) ==
PROVIDERS: PCP Nurse Practitioner Family; Visit Provider Internal Medicine Medical Oncology
DX: C43.9 Malignant melanoma of skin, unspecified (principal); Z51.11 Encounter for antineoplastic chemotherapy
CPT/HCPCS: 80053; 85025; 96413; 96417; J9228; J9299

== ENCOUNTER 2025-05-08 11:32 | Outpatient (CLI) | payer MEDICARE, MEDICAID, SELFPAY ==
[2025-05-08 11:34] VITALS: BMI 21.7
--- OUTSIDE RECORDS SUMMARY | 2025-05-08 11:40 | XMS_ITS | Encounter Summary ---
Author Organization Healthcare Address [address] [place] [address] Care Team Providers Care Phy Therapist Name Role Phone Diego Truong MD Unavailable [phone] Hernan Silvestre MD Unavailable [phone] Jovana Yesitabby Erickson APRN Primary Care Provider [phone] Encounter Details Date Type Department Care Team (Late st Contact Info) Description 03/15/2024 Lab Requisition [facility] [address] [place] [address] Hernan Silvestre MD 800 [facility] [address] [place] [address] Neoplasm of uncertain behavior of [...] EDT) Case Report [facility] Consult Case: [id number] Authorizing Provider: Hernan Silvestre MD Collected: 03/15/2024 1020 Ordering Location: [facility] Received: 03/15/2024 1020 Pathologist: Oswaldo Sanabria MD Specimen: Skin, [id number] 03/17/2024 12:52 PM EDT [facility] Final Diagnosis SKIN, RIGHT FOREARM, (OUTSIDE CASE : [id number] COLLECTED ON 02/23/2024), EXCISION: - INVASIVE ULCERATED MALIGNANT MELANOMA, NODULAR GROWTH PATTERN, WITH ULCERATION (pT4b). - BRESLOW THICKNESS: AT LEAST 20 MM (PER OUTSIDE PATHOLOGY REPORT) - TOM'S LEVEL: AT LEAST IV - MITOTIC COUNT: MORE THAN 13 MITOSES/1 mm2 - PER OUTSIDE PATHOLOGY REPORT THE LESION COMES TO WITHIN 1 MM OF DEEP TISSUE EDGE. 03/17/2024 12:52 PM EDT [facility] at 1252 EDT Clinical Information D48.5 - Neoplasm of uncertain behavior of skin [ICD-10-CM] 03/17/2024 12:52 PM EDT [facility] Gross Description A. [id number] Received along with a corresponding pathology report from [facility] is 1 slide labeled outside case: [id number] collected on 02/23/2024. 03/17/2024 12:52 PM EDT [facility] Note: A resident was involved in the service. I attest I examined the relevant preparations for the specimens and confirmed the diagnosis or interpretation. 03/17/2024 12:52 PM EDT [facility] Tissue Skin structure / Unknown 03/15/2024 10:20 AM EDT 03/15/2024 10:20 AM EDT us Hernan Silvestre MD LAB PATHOLOGY ORDERABLES F inal Result [facility] [address] [place] [address] documented in this encounter Visit Diagnoses Diagnosis Neoplasm of uncertain behavior of skin documented in this encounter Care Teams Phy Therapist Relationship Specialty Start Date End Date Joey Whaley APRN [address] [place] [address] PCP - General 06/27/23 Diego Truong MD [address] [place] [address] Referring Physician 03/01/24 Hernan Silvestre MD [address] [phone] Surgeon Surgical Oncology 03/01/24 documented as of this encounter
--- OUTSIDE RECORDS SUMMARY | 2025-05-08 11:40 | XMS_ITS | Clinical Summary ---
Author Organization Healthcare Address [address] [place] [address] Care Team Providers Care Occasional Babysitter Name Role Phone Diego Truong MD Unavailable [phone] Hernan Silvestre MD Unavailable [phone] Joey Whaley APRN Primary Care Provider [phone] Allergies Active Allergy Reactions Criticality Noted Date [...] Wellness (AWV) 1955 [facility]-/Child/Adol SDOH Screenings 1955 [id number] Vaccine (#1) 1962 [facility]- SDOH Screenings 1975 [...] complete this topic Insurance [place] [address] Care Teams Occasional Babysitter Relationship Specialty Start Date End Date Joey Whaley APRN [address] [place] [address] PCP - General 06/27/23 Diego Truong MD [address] [place] [address] Referring Physician 03/01/24 Hernan Silvestre MD [address] [address] Surgeon Surgical Oncology 03/01/24
--- OUTSIDE RECORDS SUMMARY | 2025-05-08 11:41 | XMS_ITS | Data Portability ---
Author Organization [facility]ly [facility], later [facility] Address [address] [place] [address] Assessment Encounter Date Assessment Date Assessment LastModified by Organization Details LastModified Time 02/21/2025 02/21/2025 -Medications were reviewed and any necessary updates and renewals were made, patient instructed to complete as prescribed. -The potential side effects of medications were discussed. -Counseling was done on care goals and ways to prevent future hospitalizatio ns. -Further treatment per orders listed below. [email or web address] Not available 02/21/2025 14:15:20 Plan of Treatment Reminders Order Date Submit Date Provider Last Modified By Organization Details Last Modified Time Details Appointments None recorded. Lab HbA1c (hemoglobin A1c), blood 2024 025 JESE [facility], [address], [address] [address], [place], [address], 21:06:45 BNP (B-type natriuretic peptide), serum or plasma 2024 025 JESE [facility], [address], [place], [place], [address], 21:06:46 CMP, serum or plasma 2024 025 JESE [facility], [address], [place], [place], [address], 21:06:43 hepatic function panel, serum 2024 025 JESE [facility], [address], [place], [place], [address], 21:06:43 cobalamin and folate panel, serum 2024 025 JESE [facility], [address], [place], [place], [address], 21:06:44 magnesium, serum or plasma 2024 025 JESE [facility], [address], [place], [place], [address], 21:06:46 vitamin D, 25-hydroxy, total, serum 2024 025 J[facility], [address], [place], [place], [address], 21:06:45 TSH + free T4, serum 2024 025 JESE [facility], [address], [place], [place], [address], 21:06:42 iron + total iron-bindin g capacity (TIBC), serum 2024 025 JESE [facility], [address], [place], [place], [address], 21:06:44 CBC w/ auto diff 2024 025 JESE [facility], [address], [place], [place], [address], 13:28:24 testosteron e, free + total, serum 2024 025 JESE [facility], [address], [place], [place], [address], 21:06:44 Referral cardiologis t referral - vicente said to be at office at 10 am -pt informed 2024 025 JESE Meek MD, [address], [place], [address], 5 15:42:41 general surgeon referral 2023 024 JESE Diego Georgina Dionne Kyle, [address], [address], [place], [address], 4 11:19:59 Procedures None recorded. Surgeries None recorded. Imaging XR, chest, 2 view 2024 025 JESE [facility] (Registration ), [address] [place] [address] , [place], [address], 5 04:06:14 electrocard iogram 2024 025 [facility], [address] [place] [address], [address], 5 15:44:01 Medication Orders None recorded. Patient TargetsNo targets recorded. Patient InstructionsNo instructions recorded. Reason for Referral General Surgeon Referral for Mass of skin Referring Physician: [facility], Encounter Date: 02/16/2024 Advertising Supervisor Referral for Lo w blood pressure vicente said to be at office at 10 am -pt informed Referring Physician: Joey Whaley [facility], Encounter Date: 02/11/2025 Results Created Date Observation Date Name Description Value Unit Range Abnormal Flag Note LastModifiedBy Organization Detail LastModifiedTime 02/12/2002/12/2025 TSH+F REE T4 TSH 193.00 0 uIU/m L 0.450- 4.500 above high normal Resul ts confi rmed on dilut ion. Not Available [facility] ([facility]) [address] [facility], [place], [address], 02/16/2025 21:06:42 02/12/20 25 02/13/2025 TSH+F REE T4 T4,free(dire ct) <0.10 NG/dL 0.82-1 .77 below low normal Jamar ified by repea t denilson sis Not Available [facility] ([facility]) [address] [place], [address], 02/16/2025 21:06:42 02/12/20 25 02/12/2025 CBC WITH DIFFE RENTI AL/PL ATELE T WBC 8.6 x10e3 /uL 3.4-10 .8 normal Not Available [facility] ([facility]) [address] [place], [address], 02/16/2025 21:06:43 02/12/20 25 02/12/2025 CBC WITH DIFFE RENTI AL/PL ATELE T RBC 2.38 x10e6 /uL 4.14-5 .80 alert low Not Available [facility] ([facility]) [address] [place], [address], 02/16/2025 21:06:43 02/12/20 25 02/12/2025 CBC WITH DIFFE RENTI AL/PL ATELE T hemoglobin 5.6 g/dL 13.0-1 7.7 panic low Clien t Reque sted Flag Jamar ified by repea t denilson sis Not Available [facility] ([facility]) [address] [place], [address], 02/16/2025 21:06:43 02/12/20 25 02/12/2025 CBC WITH DIFFE RENTI AL/PL ATELE T hematocrit 20.5 % 37.5-5 1.0 below low normal Not Available [facility] ([facility]) [address] [place], [address], 02/16/2025 21:06:43 02/12/20 25 02/12/2025 CBC WITH DIFFE RENTI AL/PL ATELE T MCV 86 fL 79-97 normal Not Available [facility] ([facility]) [address] [place], [address], 02/16/2025 21:06:43 02/12/20 25 02/12/2025 CBC WITH DIFFE RENTI AL/PL ATELE T MCH 23.5 pg 26.6-3 3.0 below low normal Not Available [facility] ([facility]) [address] [place], [address], 02/16/2025 21:06:43 02/12/20 25 02/12/2025 CBC WITH DIFFE RENTI AL/PL ATELE T MCHC 27.3 g/dL 31.5-3 5.7 below low normal Not Available [facility] ([facility]) [address] [place], [address], 02/16/2025 21:06:43 02/12/20 25 02/12/2025 CBC WITH DIFFE RENTI AL/PL ATELE T RDW 16.2 % 11.6-1 5.4 above high normal Not Available [facility] ([facility]) [address] [place], [address], 02/16/2025 21:06:43 02/12/20 25 02/12/2025 CBC WITH DIFFE RENTI AL/PL ATELE T platelets 376 x10e3 /uL 150-45 0 normal Not Available [facility] ([facility]) [address] [place], [address], 02/16/2025 21:06:43 02/12/20 25 02/12/2025 CBC WITH DIFFE RENTI AL/PL ATELE T neutrophils 72 % not estab. normal Not Available [facility] ([facility]) [address] [place], [address], 02/16/2025 21:06:43 02/12/20 25 02/12/2025 CBC WITH DIFFE RENTI AL/PL ATELE T lymphs 17 % not estab. normal Not Available [facility] ([facility]) [address] [place], [address], 02/16/2025 21:06:43 02/12/20 25 02/12/2025 CBC WITH DIFFE RENTI AL/PL ATELE T monocytes 7 % not estab. normal Not Available [facility] ([facility]) [address] [facility], [place], [address], 02/16/2025 21:06:43 02/12/20 25 02/12/2025 CBC WITH DIFFE RENTI AL/PL ATELE T eos 3 % not estab. normal Not Available [facility] ([facility]) [address] [place], [address], 02/16/2025 21:06:43 02/12/20 25 02/12/2025 CBC WITH DIFFE RENTI AL/PL ATELE T basos 1 % not estab. normal Not Available [facility] ([facility]) [address] [place], [address], 02/16/2025 21:06:43 02/12/20 25 02/12/2025 CBC WITH DIFFE RENTI AL/PL ATELE T immature cells PILOT STEAM YACHT Not Available [facility] ([facility]) [address] [place], [address], 02/16/2025 21:06:43 02/12/20 25 02/12/2025 CBC WITH DIFFE RENTI AL/PL ATELE T neutrophils (absolute) 6.2 x10e3 /uL 1.4-7. 0 normal Not Available [facility] ([facility]) [address] [place], [address], 02/16/2025 21:06:43 02/12/20 25 02/12/2025 CBC WITH DIFFE RENTI AL/PL ATELE T lymphs (absolute) 1.4 x10e3 /uL 0.7-3. 1 normal Not Available [facility] ([facility]) [address] [place], [address], 02/16/2025 21:06:43 02/12/20 25 02/12/2025 CBC WITH DIFFE RENTI AL/PL ATELE T monocytes(ab solute) 0.6 x10e3 /uL 0.1-0. 9 normal Not Available [facility] ([facility]) [address] [facility], [place], [address], 02/16/2025 21:06:43 02/12/20 25 02/12/2025 CBC WITH DIFFE RENTI AL/PL ATELE T eos (absolute) 0.3 x10e3 /uL 0.0-0. 4 normal Not Available [facility] ([facility]) [address] [facility], [place], [address], 02/16/2025 21:06:43 02/12/20 25 02/12/2025 CBC WITH DIFFE RENTI AL/PL ATELE T baso (absolute) 0.1 x10e3 /uL 0.0-0. 2 normal Not Available [facility] ([facility]) [address] [facility], [place], [address], 02/16/2025 21:06:43 02/12/20 25 02/12/2025 CBC WITH DIFFE RENTI AL/PL ATELE T immature granulocytes 0 % not estab. Not Available [facility] ([facility]) [address] [facility], [place], [address], 02/16/2025 21:06:43 02/12/20 25 02/12/2025 CBC WITH DIFFE RENTI AL/PL ATELE T immature grans (abs) 0.0 x10e3 /uL 0.0-0. 1 Not Available [facility] ([facility]) [address] [place], [address], 02/16/2025 21:06:43 02/12/20 25 02/12/2025 CBC WITH DIFFE RENTI AL/PL ATELE T NRBC PILOT STEAM YACHT Not Available [facility] ([facility]) [address] [place], [address], 02/16/2025 21:06:43 02/12/20 25 02/12/2025 CBC WITH DIFFE CHRISTINA AL/PL ERINLE T hematology comments: PILOT STEAM YACHT Not Available [facility] ([facility]) [address] [facility], [place], [address], 02/16/2025 21:06:43 02/12/20 25 02/12/2025 COMP. METAB OLIC PANEL (14) glucose 80 mg/dL 70-99 normal Not Available [facility] ([facility]) [address] [place], [address], 02/16/2025 21:06:43 02/12/20 25 02/12/2025 COMP. METAB OLIC PANEL (14) BUN 16 mg/dL 8-27 normal Not Available [facility] ([facility]) [address] [place], [address], 02/16/2025 21:06:43 02/12/20 25 02/12/2025 COMP. METAB OLIC PANEL (14) creatinine 0.93 mg/dL 0.76-1 .27 normal Not Available [facility] ([facility]) [address] [place], [address], 02/16/2025 21:06:43 02/12/20 25 02/12/2025 COMP. METAB OLIC PANEL (14) eGFR 89 mL/mi n/1.7 3 >59 normal Not Available [facility] ([facility]) [address] [place], [address], 02/16/2025 21:06:43 02/12/20 25 02/12/2025 COMP. METAB OLIC PANEL (14) interpretati on: Commen t GFR estim ate at the follo wing level for >or=3 month s is class ified as follo ws: GFR WITH KIDNE Y DAMAG E WITHO UT KIDNE Y DAMAG E >or=9 0 Stage 1 Gemma l 60-89 Stage 2 Decr eased GFR 30-59 Stage 3 Stage 3 15-29 Stage 4 Stage 4 <15 (or dialy sis) Stage 5 Stage 5 Estim ated GFR will over estim ate true GFR if serum creat inine is risin g as in acute renal failu re and will under estim ate true GFR if serum creat inine is decli shruthi as in resol ving acute renal failu re. Addit ional infor yunier meraz may be found at www.k doqi. org. Not Available [facility] ([facility]) [address] [facility], [place], [address], 02/16/2025 21:06:43 02/12/20 25 02/12/2025 COMP. METAB OLIC PANEL (14) BUN/creatini ne ratio 17 10-24 normal Not Available [facility] ([facility]) [address] [facility], [place], [address], 02/16/2025 21:06:43 02/12/20 25 02/12/2025 COMP. METAB OLIC PANEL (14) sodium 138 mmol/ L 134-14 4 normal Not Available [facility] ([facility]) [address] [place], [address], 02/16/2025 21:06:43 02/12/20 25 02/12/2025 COMP. METAB OLIC PANEL (14) potassium 4.5 mmol/ L 3.5-5. 2 normal Not Available [facility] ([facility]) [address] [place], [address], 02/16/2025 21:06:43 02/12/20 25 02/12/2025 COMP. METAB OLIC PANEL (14) chloride 103 mmol/ L 96-106 normal Not Available [facility] ([facility]) [address] [place], [address], 02/16/2025 21:06:43 02/12/20 25 02/12/2025 COMP. METAB OLIC PANEL (14) carbon dioxide, total 19 mmol/ L 20-29 below low normal Not Available [facility] ([facility]) [address], [place], [address], 02/16/2025 21:06:43 02/12/20 25 02/12/2025 COMP. METAB OLIC PANEL (14) calcium 9.2 mg/dL 8.6-10 .2 normal Not Available [facility] ([facility]) [address], [place], [address], 02/16/2025 21:06:43 02/12/20 25 02/12/2025 COMP. METAB OLIC PANEL (14) protein, total 6.7 g/dL 6.0-8. 5 normal Not Available [facility] ([facility]) [address] [place], [address], 02/16/2025 21:06:43 02/12/20 25 02/12/2025 COMP. METAB OLIC PANEL (14) albumin 4.2 g/dL 3.9-4. 9 normal Not Available [facility] ([facility]) [address] [place], [address], 02/16/2025 21:06:43 02/12/20 25 02/12/2025 COMP. METAB OLIC PANEL (14) globulin, total 2.5 g/dL 1.5-4. 5 Not Available [facility] ([facility]) [address] [facility] [place], [address], 02/16/2025 21:06:43 02/12/20 25 02/12/2025 COMP. METAB OLIC PANEL (14) bilirubin, total <0.2 mg/dL 0.0-1. 2 Not Available [facility] ([facility]) [address] [facility] [place], [address], 02/16/2025 21:06:43 02/12/20 25 02/12/2025 COMP. METAB OLIC PANEL (14) alkaline phosphatase 69 IU/L 44-121 normal Not Available [facility] ([facility]) [address] [place], [address], 02/16/2025 21:06:43 02/12/20 25 02/12/2025 COMP. METAB OLIC PANEL (14) AST (SGOT) 13 IU/L 0-40 normal Not Available [facility] ([facility]) [address] [facility] [place], [address], 02/16/2025 21:06:43 02/12/20 25 02/12/2025 COMP. METAB OLIC PANEL (14) ALT (SGPT) 6 IU/L 0-44 normal Not Available [facility] ([facility]) [address] [place], [address], 02/16/2025 21:06:43 02/12/20 25 02/12/2025 HEPAT IC FUNCT ION PANEL (7) bilirubin, direct <0.08 mg/dL 0.00-0 .40 Not Available [facility] ([facility]) [address] [place], [address], 02/16/2025 21:06:43 02/12/20 25 02/12/2025 IRON AND TIBC iron bind.cap.(TI BC) 403 ug/dL 250-45 0 normal Not Available [facility] ([facility]) [address] [place], [address], 02/16/2025 21:06:44 02/12/20 25 02/12/2025 IRON AND TIBC UIBC 390 ug/dL 111-34 3 above high normal Not Available [facility] ([facility]) [address] [place], [address], 02/16/2025 21:06:44 02/12/20 25 02/12/2025 IRON AND TIBC iron 13 ug/dL 38-169 below low normal Not Available [facility] ([facility]) [address] [place], [address], 02/16/2025 21:06:44 02/12/2002/12/2025 IRON AND TIBC iron saturation 3 % 15-55 alert low Not Available [facility] ([facility]) [address] [place], [address], 02/16/2025 21:06:44 02/12/20 25 02/12/2025 VITAM IN B12 AND FOLAT E vitamin B12 343 pg/mL 232-12 45 normal Not Available [facility] ([facility]) [address] [place], [address], 02/16/2025 21:06:44 02/12/2002/12/2025 VITAM IN B12 AND FOLAT E folate (folic acid), serum 7.0 NG/mL >3.0 normal A serum folat e baudilio ntrat ion of less than 3.1 ng/mL is consi dered to repre sent clini katty defic iency . Not Available [facility] ([facility]) [address] [facility], [place], [address], 02/16/2025 21:06:44 02/12/2002/12/2025 TESTO STERO NE,FR EE AND TOTAL testosterone 173 NG/dL 264-91 6 below low normal Adult male refer ence inter cortney is based on a popul ation of healt hy nonob melva males (BMI <30) betwe en 19 and 39 years old. Josefina mcintsoh et.al . JCEM 2017, 102;1 161-1 173. PMID: 60958 103. Not Available [facility] ([facility]) [address] [facility], [place], [address], 02/16/2025 21:06:44 02/12/2002/16/2025 TESTO STERO NE,FR EE AND TOTAL free testosterone (direct) 1.3 pg/mL 6.6-18 .1 below low normal Not Available [facility] ([facility]) [address] [place], [address], 02/16/2025 21:06:44 02/12/20 25 02/12/2025 HEMOG LOBIN A1C hemoglobin A1C 5.9 % 4.8-5. 6 above high normal Predi abete s: 5.7 - 6.4 Diabe jane: >6.4 Glyce luan contr ol for adult s with diabe jane: <7.0 Not Available [facility] ([facility]) [address] [facility], [place], [address], 02/16/2025 21:06:45 02/12/20 25 02/12/2025 VITAM IN D, 25-HY DROXY vitamin D, 25-hydroxy 27.4 NG/mL 30.0-1 00.0 below low normal Vitam in D defic iency has been defin ed by the Insti tute of Medic ine and an Endoc rine Socie ty pract ice guide line as a level of serum 25-OH vitam in D less than 20 ng/mL (1,2) . The Endoc rine Socie ty went on to furth er defin e vitam in D insuf ficie ncy as a level betwe en 21 and 29 ng/mL (2). 1. IOM (Inst itute of Medic ine). 2009. Dieta ry refer ence intanjali es for calci um and D. Dre pollock [place]: The [facility] Press . 2. Ravi gifford [place], Kiki cisneros [place], Basim off-F errar i MIRELES, et al. Evalu ation , treat ment, and preve ntion of vitam in D defic iency : an Endoc rine Socie ty clini katty pract ice guide line. JCEM. 2010; 96(7) :1911 -30. Not Available [facility] ([facility]) [address] [facility], [place], [address], 02/16/2025 21:06:45 02/12/20 25 02/12/2025 B-TYP E NATRI URETI C PEPTI DE B-type natriuretic peptide 32.1 pg/mL 0.0-10 0.0 Sieme ns ADVIA Cent[facility] XP metho dolog y Not Available [facility] ([facility]) [address] [facility], [place], [address], 02/16/2025 21:06:46 02/12/20 25 02/12/2025 MAGNE SIUM magnesium 2.3 mg/dL 1.6-2. 3 normal Not Available [facility] ([facility]) [address] [facility], [place], [address], 02/16/2025 21:06:46 02/23/20 24 02/21/2024 elect rocar diogr am No observ ation record ed. [address], [place], [address], 02/23/2024 10:58:00 02/12/20 25 02/11/2025 elect rocar diogr am No observ ation record ed. [address], [address], 02/11/2025 15:57:46 02/13/20 25 02/12/2025 US, thyro id No observ ation record ed. [place] [id number], [place], [address], 02/14/2025 09:39:54 02/14/20 25 02/13/2025 US, doppl er echoc ardio gram No observ ation record ed. [facility] [address], [place], [address], 02/14/2025 09:39:55 02/16/20 25 02/11/2025 elect rocar diogr am No observ ation record ed. [email or web address] [address], [address], 02/20/2025 09:15:48 03/05/20 25 03/05/2025 MRI, head, w/wo contr ast No observ ation [facility] ed[facility] [address], [place], [address], 03/05/2025 13:54:52 03/14/20 25 03/14/2025 CT, angio gram, chest , w/ contr ast No observ ation record ed. [facility] [address], [place], [address], 03/15/2025 08:23:54 Result Notes None recorded. Problems Name Problem SNOMED Code Status Onset Date Resolution Date Notes Provider Name and Address Organization Details Recorded Time Metastatic malignant melanoma 957929575 Active 025 Yesitabby Whaley, [employer]EL[employer]PERATOR [address], [place], [address], [place] - [facility] 14:42:30 Problem Notes None recorded. Procedures Surgical History Date Name Laterality Status Provider Name and Address Organization Details Recorded Time 02/22/20 Medication Reconcilliation completed Donna Philippe [place] - [facility] 02/21/2025 14:15:20 Hernia Repair completed Donna Philippe [place] - [facility] 02/16/2024 15:57:13 excision of melanoma completed Sheron Smith [place] - [facility] 02/11/2025 15:20:09 Imaging Results None recorded. Procedure Notes None recorded. Medical Equipment None Reported. Allergies Allergen ID Allergen Name Allergen Category Reaction Reaction Severity Criticality Documentation Date Start Date Code Code System Note Provider Name and Address Organization Details Recorded Time 682687 Product containin g penicilli n (product) medicatio n Not available Not available high 02/16/2024 96740 8001 SNOMED Donna Philippe null, [place] - [facility] 15:49:53 Medications Name Sig Start Date Stop Date Status Note LastModified by Organization Details LastModified Time pantoprazole 40 mg tablet,delayed release TAKE 1 TABLET BY MOUTH TWICE DAILY active Not Available Not Available No t Available levothyroxine 112 mcg tablet TAKE 1 TABLET BY MOUTH EVERY DAY AT 7 AM active Not Available Not Available No t Available Vitals Date Recorded Body height Body mass index (BMI) Body weight Heart rate Oxygen saturation Oxygen saturation in Arterial blood by Pulse oximetry Respiratory rate Pain severity - 0-10 verbal numeric rating [Score] - Reported Body temperature Systolic And Diastolic Provider Name and Address Organization Details Last Updated DateTime 5 182.88 cm 22 kg/m2 77649.9 6 g 72 /min 97 % 97 % 18 /min 0 98.1 [degF] 118/60 mm[Hg] Donna Philippe [facility] 5 14:25:37 Date Recorded Body height Body mass index (BMI) Body weight Body temperature Heart rate Oxygen saturation Oxygen saturation in Arterial blood by Pulse oximetry Respiratory rate Pain severity - 0-10 verbal numeric rating [Score] - Reported Systolic And Diastolic Provider Name and Address Organization Details Last Updated DateTime 4 182.88 cm 21.3 kg/m2 94085 g 98 [degF] 62 /min 97 % 97 % 18 /min 0 110/70 mm[Hg] Donna Philippe [facility] 4 15:50:58 Date Recorded Body height Body mass index (BMI) Body weight Oxygen saturation Oxygen saturation in Arterial blood by Pulse oximetry Heart rate Body temperature Respiratory rate Pain severity - 0-10 verbal numeric rating [Score] - Reported Systolic And Diastolic Provider Name and Address Organization Details Last Updated DateTime 5 182.88 cm 21.7 kg/m2 18311.7 8 g 97 % 97 % 68 /min 98.1 [degF] 18 /min 0 122/68 mm[Hg] Donna Philippe [facility] 5 14:19:33 Social History Question Answer Notes LastModified by Organizat ion Details LastModified Time Tobacco Smoking Status Never Smoker Donna Philippe [facility], [facility] 02/16/2024 15:55:38 Are You Blind Or Do You Have Difficulty Seeing? No Information n ot available 02/16/2024 What Is Your Level Of Caffeine Consumption? Moderate Information not available 02/16/2024 In The 14 Days Before Symptom Onset, Have You Had Close Contact With A Laboratory-confirm ed COVID-19 While That Case Was Ill? No Information n ot available 02/16/2024 In The 14 Days Before Symptom Onset, Have You Had Close Contact With A Person Who Is Under Investigation For COVID-19 While That Person Was Ill? No Information not available 02/16/2024 Have You Been To An Area Known To Be High Risk For COVID-19? No Information not available 02/16/2024 Are You Deaf Or Do You Have Serious Difficulty Hearing? No Information not available 02/16/2024 Have You Processed Blood Or Body Fluids From An Ebola Virus Disease Patient Without Appropriate PPE? No Information not available 02/16/2024 Do You Reside In Or Have You Traveled To An Area Where Ebola Virus Transmission Is Active? No Information not available 02/16/2024 Have There Been Any Changes To Your Family Or Social Situation? No Information no t available 02/16/2024 What Is The Fluoride Status Of Your Home? Fluoridated Information not available 02/16/2024 Have You Recently Or Are You Planning To Travel To An Area With Zika Virus? No Information not available 02/16/2024 What Was The Date Of Your Most Recent Tobacco Screening? 02/11/2025 Information not available 02/11/2025 What Is Your Relationship Status? Single Information not available 02/16/2024 Do You Have Smoke And Carbon Monoxide Detectors In Your Home? Yes Information not available 02/16/2024 Are You Passively Exposed To Smoke? No Information no t available 02/16/2024 Has Tobacco Cessation Counseling Been Provided? No Information not available 02/16/2024 Have You Used IV Drugs? No Information not available 02/16/2024 Do You Have Difficulty Walking Or Climbing Stairs? No Information not available 02/16/2024 Sex: Male Functional Status Question Answer Note LastModified by Organizat ion Details LastModified Time How many times per week do you consume alcohol? Less than 1 time per week Information not available 02/16/2024 Do you use any illicit or recreational drugs? Yes marijuana Information not available 02/16/2024 Do you or have you ever used any other forms of tobacco or nicotine? Yes Information not available 02/16/2024 What is your level of alcohol consumption? Occasional Information not available 02/16/2024 Do you or have you ever used smokeless tobacco? Current snuff user Information not available 02/16/2024 Do you have transportation difficulties? No Information not available 02/16/2024 Are you able to walk independently without assistance or assistive devices? YESWOREST Information not available 02/16/2024 Do you have difficulty doing errands alone? No Information not available 02/16/2024 Are you able to care for yourself independently? Yes Information not available 02/16/2024 Do you have difficulty dressing, bathing, grooming, or toileting? No Information not available 02/16/2024 Do you or have you ever used e-cigarettes or vape? Never used electronic cigarettes Information not available 02/16/2024 Mental Status Question Answer Note LastModified by Organizat ion Details LastModified Time Do you feel stressed (tense, restless, nervous, or anxious, or unable to sleep at night)? TW1049-7 Information not available 02/16/2024 Do you have difficulty concentrating, remembering or making decisions? No Information no t available 02/16/2024 Family History Relationship Description Onset Age of this Age Resolved Age Notes LastModified by Organization Details LastModified Time Mother Malignant neoplasm of lung 82 cbuckler Not available 2023 15:53:44 Mother Malignant neoplasm of bone cbuckler Not available 2023 15:54:02 Father Malignant neoplasm of prostate 71 cbuckler Not available 2023 15:54:25 Medical History No medical history recorded. Past Encounters Encounter ID Performer Location Encounter Start Date Encounter Closed Date Diagnosis/Indication Diagnosis SNOMED-CT Code Diagnosis ICD10 Code Diagnosis IMO Codes Diagnosis Note [id number] Joey Whaley APRN [address] [address] 02/16/2024 15:33:17 02/16/2024 16:33:48 Mass of skin 728591207 R22.9 follow up with surgery tues at 930 if worsen go to ed [id number] Joey Whaley [employer] [address] [address] 02/11/2025 13:59:31 02/11/2025 15:18:36 Fatigue 17218521 R53.83 [id number] labs History of Malignant melanoma 761773572 Z85.820 491998 Low blood pressure 17449 003 I95.9 [id number] advised to go to edseeing dr zhang office in am at 10 am Dyspnea 540864074 R06.02 53594 go to ed for any concerns Metastatic malignant melanoma 606933881 C43.9 677415 Dizzy spells 812874626 R 42 837725 go to ed for any concerns or worsening [id number] Joey Whaley APRN [address] [address] 02/21/2025 14:01:24 02/21/2025 15:19:47 Hemorrhage of digestive system 785341300 K28.4 435350 follow up with surgery and oncology- labs at oncology next week History of polyp of colon 932881212 Z86.0100 7176218 follow up with surgery and oncology Neoplasm of colon 899088 000 D49.0 206502 follow up with surgery and oncology Health Concerns Section Related Observation LastModified by Organization Detai ls LastModified Time None Recorded Concern Status LastModified by Organization Details LastModified Time None Recorded Advance Directives Directive None Recorded Payers Insurance Date Sequence Insurance Name Policy Number Policy Oliveira Covered Member ID Oliveira Member ID Guarantor Name 02/09/2025 [employer] - MEDICARE [facility] (MEDICARE) Serge Bear [id number] Serge Bear 02/11/2025 1 [place] Serge Bear [id number] Serge Bear 04/10/2025 2 [place] [employer] [place] FFS/TRADITIO NAL Serge Bear [id number] Serge Bear Notes Date Note Type Note Provider Name and Address Organization Details Recorded Time 02/16/2024 text/html ROS as noted in the HPI 69 yr old male presents for a skin issue on the right forearm. He has a growth there x 1 1/2 years. pt has tried to tie off the mass with string. has odor Joey Whaley APRN [address], [place], [address], [place] - [facility] 02/16/2024 16:24:47 02/11/2025 text/html ROS as noted in the HPI 70 yr old male presents for feeling fatigued, low bp at times, soa, balance is off and head feels light and foggy. Joey Whaley, JANNY [address], [place], [address], [facility] - [facility] 03/28/2025 15:49:08 02/21/2025 text/html Emergency Depart ment Follow-Up RecordReported by PatientEmergency Room Follow-Up RecordFor discharge information, patient reportsname of hospital/urgent care [facility]patient presented to hospital/urgent care on or around: actual date 02-12,patient presented to hospital for treatment of: (low blood/hgb),treatment received by hospital/urgent care: (admission, blood , colonoscopy),patient's condition has: improved, andhospital records available at the time of this visit: yes. 70 yr old male presents for a hospital follow up. pt states he was found to have gi bleed, multiple polyps and mass in colon. pt states he is seeing oncology next week. pt states he feels better. Joey Whaley APRN [address], [place], [address], [place] - [facility] 02/21/2025 16:57:24
--- NOTE | 2025-05-08 11:53 | XR_ITS ---
FINAL REPORT CLINICAL HISTORY: melanoma, checking arthritis, no new injury COMPARISON: None FINDINGS: RIGHT WRIST THREE VIEW FINDINGS: Three views show no evidence of an acute, displaced fracture or dislocation of the visualized bony architecture. There are advanced arthritic changes of the carpus and radiocarpal joint. Scapholunate collapse is noted. There is mild chondrocalcinosis of the TFCC. No destructive lesions seen. IMPRESSION: Chronic arthritic changes with scapholunate collapse. Reviewed, Interpreted and Dictated by Farrah Sanchez MD Transcribed by Nano Luna Authenticated and [facility]
[2025-05-08 11:55] LABS: Hematocrit 34.3 % (42.0-52.0); Hemoglobin 10.1 g/dL (14.1-18.0); Immature Granulocytes % 0.6 %; Mean Corpuscular HGB Conc 29.4 g/dL (31.8-35.4); Mean Corpuscular Hemoglobin 23.8 pg (27.0-31.2); Mean Corpuscular Volume 80.7 fl (80-94); Nucleated Red Blood Cells % 0 %; Platelet Count 442 K/mm3 (142-424); Red Blood Count 4.25 M/mm3 (4.60-6.20); Red Cell Distribution Width-SD 59.5 fL; White Blood Count 9.5 K/mm3 (4.8-10.8)
[2025-05-08 12:22] LABS: Alanine Aminotransferase 21 U/L (12-78); Albumin Level 3.7 g/dl (3.5-5.0); Albumin/Globulin Ratio 1.2 (1.1-1.8); Alkaline Phosphatase 121 U/L (38-126); Anion Gap 10.1 mEq/L (5-15); Aspartate Amino Transferase 25 U/L (17-59); Bilirubin,Total 0.5 mg/dl (0.2-1.3); Blood Urea Nitrogen 13 mg/dl (9-20); Calcium 9.5 mg/dl (8.4-10.2); Carbon Dioxide 26 mmol/L (22.0-30.0); Chloride 102 mmol/L (98-107); Creatinine Clearance Estimated 71 mL/min (50-200); Creatinine,Serum 0.80 mg/dl (0.66-1.25); Estimated Glomerular Filt Rate 96 ml/min (>60); GFR (African American) 116 ML/MIN (>60); Globulin 3.0 g/dL (1.3-3.2); Glucose 94 mg/dl (74-100); Potassium 4.1 mmoL/L (3.5-5.1); Sodium 134 mmol/L (136-145); Total Protein,Serum 6.7 g/dl (6.3-8.2)
[2025-05-08] MEDS: SODIUM CHLORIDE 0.9% IV ×2 (12:57→13:50)
[2025-05-08] MEDS: NIVOLUMAB IV (12:57)
[2025-05-08] MEDS: SODIUM CHLORIDE 0.9% 100ML BAG 100 ML IV (12:58)
[2025-05-08 13:00] VITALS: BP 113/64; PULSE 64; RESP 17; O2SAT 94
[2025-05-08 13:15] VITALS: BP 101/61; PULSE 60; RESP 16
[2025-05-08 13:30] VITALS: BP 120/61; PULSE 64; RESP 16
[2025-05-08 13:50] VITALS: BP 119/67; PULSE 64; RESP 17
[2025-05-08] MEDS: IPILIMUMAB IV (13:50)
[2025-05-08 14:05] VITALS: BP 122/64; PULSE 60; RESP 17
[2025-05-08 14:20] VITALS: BP 144/72; PULSE 65; RESP 17
== END 2025-05-08 23:59 | disposition home or self-care (01) ==
LOC: INF 11:34
PROVIDERS: PCP Nurse Practitioner Family; Visit Provider Internal Medicine Medical Oncology
DX: C43.9 Malignant melanoma of skin, unspecified (principal); M19.031 Primary osteoarthritis, right wrist; Z51.11 Encounter for antineoplastic chemotherapy
CPT/HCPCS: 73100; 80053; 85025; 96413; 96417; J9228; J9299

== ENCOUNTER 2025-05-29 12:05 | Outpatient (CLI) | payer MEDICARE, MEDICAID, SELFPAY ==
--- OUTSIDE RECORDS SUMMARY | 2025-05-29 12:09 | XMS_ITS | Encounter Summary ---
Author Organization Healthcare Address [address] [place] [address] Care Team Providers Care Paralegal Assistant Name Role Phone Diego Truong MD Unavailable [phone] Hernan Silvestre MD Unavailable [phone] Ashleigh Whaleymaxine Erickson APRN Primary Care Provider [phone] Encounter Details Date Type Department Care Team (Late st Contact Info) Description 03/15/2024 Lab Requisition [facility] [address] [place] [address] Hernan Silvestre MD 800 [facility] [address] [place] [address] Neoplasm of uncertain behavior of [...] EDT) Case Report Sugical Pathology Consult Case: [id number] Authorizing Provider: Hernan Silvestre MD Collected: 03/15/2024 1020 Ordering Location: [facility] Received: 03/15/2024 1020 Pathologist: Oswaldo Sanabria MD Specimen: Skin, [id number] 03/17/2024 12:52 PM EDT [facility] Final Diagnosis SKIN, RIGHT FOREARM, (OUTSIDE CASE : [id number] COLLECTED ON 02/23/2024), EXCISION: - INVASIVE ULCERATED MALIGNANT MELANOMA, NODULAR GROWTH PATTERN, WITH ULCERATION (pT4b). - BRESLOW THICKNESS: AT LEAST 20 MM (PER OUTSIDE PATHOLOGY REPORT) - TOM'S LEVEL: AT LEAST IV - MITOTIC COUNT: MORE THAN 13 MITOSES/1 mm2 - PER OUTSIDE PATHOLOGY REPORT THE LESION COMES TO WITHIN 1 MM OF DEEP TISSUE EDGE. 03/17/2024 12:52 PM EDT [facility] at 1252 EDT Clinical Information D48.5 - Neoplasm of uncertain behavior of skin [ICD-10-CM] 03/17/2024 12:52 PM EDT [facility] Gross Description A. [id number] Received along with a corresponding pathology report from [facility] is 1 slide labeled outside case: [id number] collected on 02/23/2024. 03/17/2024 12:52 PM EDT [facility] Note: A resident was involved in the service. I attest I examined the relevant preparations for the specimens and confirmed the diagnosis or interpretation. 03/17/2024 12:52 PM EDT [facility] Tissue Skin structure / Unknown 03/15/2024 10:20 AM EDT 03/15/2024 10:20 AM EDT us Hernan Silvestre MD LAB PATHOLOGY ORDERABLES F inal Result [facility] [address] [place] [address] documented in this encounter Visit Diagnoses Diagnosis Neoplasm of uncertain behavior of skin documented in this encounter Care Teams Paralegal Assistant Relationship Specialty Start Date End Date Joey Whaley APRN [address] [place] [address] PCP - General 06/27/23 Diego Truong MD [address] [place] [address] Referring Physician 03/01/24 Hernan Silvestre MD [address] [phone] Surgeon Surgical Oncology 03/01/24 documented as of this encounter
--- OUTSIDE RECORDS SUMMARY | 2025-05-29 12:09 | XMS_ITS | Data Portability ---
Author Organization [facility] Address [address] [place] [address] Assessment Encounter Date Assessment Date Assessment LastModified [...] [address], [place], [place], [address], 21:06:45 BNP (B-type natriuretic peptide), serum or plasma 2024 025 JESE [facility], [address], [place], [place], [address], 21:06:46 CMP, serum or plasma 2024 025 JESE [facility], [address], [place], [place], [address], 5 21:06:43 hepatic function panel, serum 2024 025 JESE [facility], [address], [place], [place], [address], 21:06:43 cobalamin and folate panel, serum 2024 025 JESE [facility], [address], [place], [place], [address], 21:06:44 magnesium, serum or plasma 2024 025 [facility], [address], [place], [place], [address], 21:06:46 vitamin D, 25-hydroxy, total, serum 2024 025 [facility], [address], [place], [place], [address], 21:06:45 TSH + free T4, serum 2024 025 [facility], [address], [place], [place], [address], 21:06:42 iron + total iron-bindin g capacity (TIBC), serum 2024 025 [facility], [address], [place], [place], [address], 21:06:44 CBC w/ auto diff 2024 025 [facility], [address], [place], [place], [address], 13:28:24 testosteron e, free + total, serum 2024 025 [facility], [address], [place], [place], [address], 21:06:44 Referral cardiologis t referral - vicente said to be at office at 10 am -pt informed 2024 025 JESE Meek MD, [address], [place], [address], 5 15:42:41 general surgeon referral 2023 024 JESE Diego Georgina Dionne Kyle, [address], [address], [place], [address], 4 11:19:59 Procedures None recorded. Surgeries None recorded. Imaging XR, chest, 2 view 2024 025 JESE [facility] (Registration ), [address] [place] [address] , [place], [address], 5 04:06:14 electrocard iogram 2024 025 [facility], [address] [place] [address], [address], 5 15:44:01 Medication Orders None recorded. Patient TargetsNo targets recorded. Patient InstructionsNo instructions recorded. Reason for Referral General Surgeon Referral for Mass of skin Referring Physician: [facility], Encounter Date: 02/16/2024 Cycle Analyst Referral for Lo w blood pressure vicente said to be at office at 10 am -pt informed Referring Physician: Joey Whaley [facility], Encounter Date: 02/11/2025 Results Created Date Observation Date Name Description Value Unit Range Abnormal Flag Note LastModifiedBy Organization Detail LastModifiedTime 02/12/2002/12/2025 TSH+F REE T4 TSH 193.00 0 uIU/m L 0.450- 4.500 above high normal Resul ts confi rmed on dilut ion. Not Available [facility] ([facility]) [address] [facility], [place], [address], 02/16/2025 21:06:42 02/12/20 25 02/13/2025 TSH+F REE T4 T4,free(dire ct) <0.10 NG/dL 0.82-1 .77 below low normal Jamar ified by repea t denilson sis Not Available [facility] ([facility]) [address] [place], [address], 02/16/2025 21:06:42 02/12/20 25 02/12/2025 CBC WITH DIFFE RENTI AL/PL ATELE T WBC 8.6 x10e3 /uL 3.4-10 .8 normal Not Available [facility] ([facility]) [address] [place], [address], 02/16/2025 21:06:43 02/12/20 25 02/12/2025 CBC WITH DIFFE RENTI AL/PL ATELE T RBC 2.38 x10e6 /uL 4.14-5 .80 alert low Not Available [facility] ([facility]) [address] [place], [address], 02/16/2025 21:06:43 02/12/20 25 02/12/2025 CBC WITH DIFFE RENTI AL/PL ATELE T hemoglobin 5.6 g/dL 13.0-1 7.7 panic low Clien t Reque sted Flag Jamar ified by repea t denilson sis Not Available [facility] ([facility]) [address] [place], [address], 02/16/2025 21:06:43 02/12/20 25 02/12/2025 CBC WITH DIFFE RENTI AL/PL ATELE T hematocrit 20.5 % 37.5-5 1.0 below low normal Not Available [facility] ([facility]) [address] [place], [address], 02/16/2025 21:06:43 02/12/20 25 02/12/2025 CBC WITH DIFFE RENTI AL/PL ATELE T MCV 86 fL 79-97 normal Not Available [facility] ([facility]) [address] [place], [address], 02/16/2025 21:06:43 02/12/20 25 02/12/2025 CBC WITH DIFFE RENTI AL/PL ATELE T MCH 23.5 pg 26.6-3 3.0 below low normal Not Available [facility] ([facility]) [address] [place], [address], 02/16/2025 21:06:43 02/12/20 25 02/12/2025 CBC WITH DIFFE RENTI AL/PL ATELE T MCHC 27.3 g/dL 31.5-3 5.7 below low normal Not Available [facility] ([facility]) [address] [place], [address], 02/16/2025 21:06:43 02/12/20 25 02/12/2025 CBC WITH DIFFE RENTI AL/PL ATELE T RDW 16.2 % 11.6-1 5.4 above high normal Not Available [facility] ([facility]) [address] [place], [address], 02/16/2025 21:06:43 02/12/20 25 02/12/2025 CBC WITH DIFFE RENTI AL/PL ATELE T platelets 376 x10e3 /uL 150-45 0 normal Not Available [facility] ([facility]) [address] [place], [address], 02/16/2025 21:06:43 02/12/20 25 02/12/2025 CBC WITH DIFFE RENTI AL/PL ATELE T neutrophils 72 % not estab. normal Not Available [facility] ([facility]) [address] [place], [address], 02/16/2025 21:06:43 02/12/20 25 02/12/2025 CBC WITH DIFFE RENTI AL/PL ATELE T lymphs 17 % not estab. normal Not Available [facility] ([facility]) [address] [place], [address], 02/16/2025 21:06:43 02/12/20 25 02/12/2025 CBC WITH DIFFE RENTI AL/PL ATELE T monocytes 7 % not estab. normal Not Available [facility] ([facility]) [address] [facility], [place], [address], 02/16/2025 21:06:43 02/12/20 25 02/12/2025 CBC WITH DIFFE RENTI AL/PL ATELE T eos 3 % not estab. normal Not Available [facility] ([facility]) [address] [place], [address], 02/16/2025 21:06:43 02/12/20 25 02/12/2025 CBC WITH DIFFE RENTI AL/PL ATELE T basos 1 % not estab. normal Not Available [facility] ([facility]) [address] [place], [address], 02/16/2025 21:06:43 02/12/20 25 02/12/2025 CBC WITH DIFFE RENTI AL/PL ATELE T immature cells COMP[employer]ITIVE SHOPPER Not Available [facility] ([facility]) [address] [place], [address], 02/16/2025 21:06:43 02/12/20 25 02/12/2025 CBC WITH DIFFE RENTI AL/PL ATELE T neutrophils (absolute) 6.2 x10e3 /uL 1.4-7. 0 normal Not Available [facility] ([facility]) [address] [place], [address], 02/16/2025 21:06:43 02/12/20 25 02/12/2025 CBC WITH DIFFE RENTI AL/PL ATELE T lymphs (absolute) 1.4 x10e3 /uL 0.7-3. 1 normal Not Available [facility] ([facility]) [address] [place], [address], 02/16/2025 21:06:43 02/12/20 25 02/12/2025 CBC WITH DIFFE RENTI AL/PL ATELE T monocytes(ab solute) 0.6 x10e3 /uL 0.1-0. 9 normal Not Available [facility] ([facility]) [address] [facility], [place], [address], 02/16/2025 21:06:43 02/12/20 25 02/12/2025 CBC WITH DIFFE RENTI AL/PL ATELE T eos (absolute) 0.3 x10e3 /uL 0.0-0. 4 normal Not Available [facility] ([facility]) [address] [facility], [place], [address], 02/16/2025 21:06:43 02/12/20 25 02/12/2025 CBC WITH DIFFE RENTI AL/PL ATELE T baso (absolute) 0.1 x10e3 /uL 0.0-0. 2 normal Not Available [facility] ([facility]) [address] [facility], [place], [address], 02/16/2025 21:06:43 02/12/20 25 02/12/2025 CBC WITH DIFFE RENTI AL/PL ATELE T immature granulocytes 0 % not estab. Not Available [facility] ([facility]) [address] [facility], [place], [address], 02/16/2025 21:06:43 02/12/20 25 02/12/2025 CBC WITH DIFFE RENTI AL/PL ATELE T immature grans (abs) 0.0 x10e3 /uL 0.0-0. 1 Not Available [facility] ([facility]) [address] [place], [address], 02/16/2025 21:06:43 02/12/20 25 02/12/2025 CBC WITH DIFFE RENTI AL/PL ATELE T NRBC COMP[employer]ITIVE SHOPPER Not Available [facility] ([facility]) [address] [place], [address], 02/16/2025 21:06:43 02/12/20 25 02/12/2025 CBC WITH DIFFE CHRISTINA AL/PL ERINLE T hematology comments: COMP[employer]ITIVE SHOPPER Not Available [facility] ([facility]) [address] [facility], [place], [address], 02/16/2025 21:06:43 02/12/20 25 02/12/2025 COMP. METAB OLIC PANEL (14) glucose 80 mg/dL 70-99 normal Not Available [facility] ([facility]) [address] [place], [address], 02/16/2025 21:06:43 02/12/20 25 02/12/2025 COMP. METAB OLIC PANEL (14) BUN 16 mg/dL 8-27 normal Not Available [facility] ([facility]) [address] [place], [address], 02/16/2025 21:06:43 02/12/20 25 02/12/2025 COMP. METAB OLIC PANEL (14) creatinine 0.93 mg/dL 0.76-1 .27 normal Not Available [facility] ([facility]) [address] [place], [address], 02/16/2025 21:06:43 02/12/20 25 02/12/2025 COMP. METAB OLIC PANEL (14) eGFR 89 mL/mi n/1.7 3 >59 normal Not Available [facility] ([facility]) [address] [place], [address], 02/16/2025 21:06:43 02/12/20 25 02/12/2025 COMP. METAB [...] at [email or web address] org. Not Available [facility] ([facility]) [address] [facility], [place], [address], 02/16/2025 21:06:43 02/12/20 25 02/12/2025 COMP. METAB OLIC PANEL (14) BUN/creatini ne ratio 17 10-24 normal Not Available [facility] ([facility]) [address] [facility], [place], [address], 02/16/2025 21:06:43 02/12/20 25 02/12/2025 COMP. METAB OLIC PANEL (14) sodium 138 mmol/ L 134-14 4 normal Not Available [facility] ([facility]) [address] [place], [address], 02/16/2025 21:06:43 02/12/20 25 02/12/2025 COMP. METAB OLIC PANEL (14) potassium 4.5 mmol/ L 3.5-5. 2 normal Not Available [facility] ([facility]) [address] [place], [address], 02/16/2025 21:06:43 02/12/20 25 02/12/2025 COMP. METAB OLIC PANEL (14) chloride 103 mmol/ L 96-106 normal Not Available [facility] ([facility]) [address] [place], [address], 02/16/2025 21:06:43 02/12/20 25 02/12/2025 COMP. METAB OLIC PANEL (14) carbon dioxide, total 19 mmol/ L 20-29 below low normal Not Available [facility] ([facility]) [address], [place], [address], 02/16/2025 21:06:43 02/12/20 25 02/12/2025 COMP. METAB OLIC PANEL (14) calcium 9.2 mg/dL 8.6-10 .2 normal Not Available [facility] ([facility]) [address], [place], [address], 02/16/2025 21:06:43 02/12/20 25 02/12/2025 COMP. METAB OLIC PANEL (14) protein, total 6.7 g/dL 6.0-8. 5 normal Not Available [facility] ([facility]) [address] [place], [address], 02/16/2025 21:06:43 02/12/20 25 02/12/2025 COMP. METAB OLIC PANEL (14) albumin 4.2 g/dL 3.9-4. 9 normal Not Available [facility] ([facility]) [address] [place], [address], 02/16/2025 21:06:43 02/12/20 25 02/12/2025 COMP. METAB OLIC PANEL (14) globulin, total 2.5 g/dL 1.5-4. 5 Not Available [facility] ([facility]) [address] [place], [address], 02/16/2025 21:06:43 02/12/20 25 02/12/2025 COMP. METAB OLIC PANEL (14) bilirubin, total <0.2 mg/dL 0.0-1. 2 Not Available [facility] ([facility]) [address] [place], [address], 02/16/2025 21:06:43 02/12/20 25 02/12/2025 COMP. METAB OLIC PANEL (14) alkaline phosphatase 69 IU/L 44-121 normal Not Available [facility] ([facility]) [address] [place], [address], 02/16/2025 21:06:43 02/12/20 25 02/12/2025 COMP. METAB OLIC PANEL (14) AST (SGOT) 13 IU/L 0-40 normal Not Available [facility] ([facility]) [address] [place], [address], 02/16/2025 21:06:43 02/12/20 25 02/12/2025 COMP. METAB OLIC PANEL (14) ALT (SGPT) 6 IU/L 0-44 normal Not Available [facility] ([facility]) [address] [place], [address], 02/16/2025 21:06:43 02/12/20 25 02/12/2025 HEPAT IC FUNCT ION PANEL (7) bilirubin, direct <0.08 mg/dL 0.00-0 .40 Not Available [facility] ([facility]) [address] [place], [address], 02/16/2025 21:06:43 02/12/20 25 02/12/2025 IRON AND TIBC iron bind.cap.(TI BC) 403 ug/dL 250-45 0 normal Not Available [facility] ([facility]) [address] [place], [address], 02/16/2025 21:06:44 02/12/20 25 02/12/2025 IRON AND TIBC UIBC 390 ug/dL 111-34 3 above high normal Not Available [facility] ([facility]) [address] [place], [address], 02/16/2025 21:06:44 02/12/20 25 02/12/2025 IRON AND TIBC iron 13 ug/dL 38-169 below low normal Not Available [facility] ([facility]) [address] [place], [address], 02/16/2025 21:06:44 02/12/2002/12/2025 IRON AND TIBC iron saturation 3 % 15-55 alert low Not Available [facility] ([facility]) [address] [place], [address], 02/16/2025 21:06:44 02/12/20 25 02/12/2025 VITAM IN B12 AND FOLAT E vitamin B12 343 pg/mL 232-12 45 normal Not Available [facility] ([facility]) [address] [place], [address], 02/16/2025 21:06:44 02/12/2002/12/2025 VITAM IN B12 AND FOLAT E folate (folic acid), serum 7.0 NG/mL >3.0 normal A serum folat e baudilio ntrat ion of less than 3.1 ng/mL is consi dered to repre sent clini katty defic iency . Not Available [facility] ([facility]) [address] [facility], [place], [address], 02/16/2025 21:06:44 02/12/2002/12/2025 TESTO STERO NE,FR EE AND TOTAL testosterone 173 NG/dL 264-91 6 below low normal Adult male refer ence inter cortney is based on a popul ation of healt hy nonob melva males (BMI <30) betwe en 19 and 39 years old. Josefina mcintosh et.al . JCEM 2017, 102;1 161-1 173. PMID: 90492 103. Not Available [facility] ([facility]) [address] [facility], [place], [address], 02/16/2025 21:06:44 02/12/2002/16/2025 TESTO STERO NE,FR EE AND TOTAL free testosterone (direct) 1.3 pg/mL 6.6-18 .1 below low normal Not Available [facility] ([facility]) [address] [place], [address], 02/16/2025 21:06:44 02/12/20 25 02/12/2025 HEMOG LOBIN A1C hemoglobin A1C 5.9 % 4.8-5. 6 above high normal Predi abete s: 5.7 - 6.4 Diabe jane: >6.4 Glyce luan contr ol for adult s with diabe jane: <7.0 Not Available [facility] ([facility]) [address] [facility], [place], [address], 02/16/2025 21:06:45 02/12/20 25 02/12/2025 VITAM IN [...] um and D. Dre pollock [place]: [facility] . 2. Ravi gifford MF, Kiki cisneros [place], Basim off-F errar i MIRELES, et al. Evalu ation , treat ment, and preve ntion of vitam in D defic iency : an Endoc rine Socie ty clini katty pract ice guide line. JCEM. 2010; 96(7) :1911 -30. Not Available [facility] ([facility]) [address] [facility], [place], [address], 02/16/2025 21:06:45 02/12/20 25 02/12/2025 B-TYP E NATRI URETI C PEPTI DE B-type natriuretic peptide 32.1 pg/mL 0.0-10 0.0 Sieme ns ADVIA [facility] XP metho dolog y Not Available [facility] ([facility]) [address] [facility], [place], [address], 02/16/2025 21:06:46 02/12/20 25 02/12/2025 MAGNE SIUM magnesium 2.3 mg/dL 1.6-2. 3 normal Not Available [facility] ([facility]) [address] [facility], [place], [address], 02/16/2025 21:06:46 02/23/20 24 02/21/2024 elect rocar diogr am No observ ation record ed. [address], [place], [address], 02/23/2024 10:58:00 02/12/20 25 02/11/2025 elect rocar diogr am No observ ation record ed. [address], [address], 02/11/2025 15:57:46 02/13/20 25 02/12/2025 US, thyro id No observ ation record ed. [place] [id number] [facility] [address], [place], [address], 02/14/2025 09:39:54 02/14/20 25 02/13/2025 US, doppl er echoc ardio gram No observ ation record ed. [facility] [address] [facility] [address], [place], [address], 02/14/2025 09:39:55 02/16/20 25 02/11/2025 elect rocar diogr am No observ ation record ed. [email or web address] [address], [address], 02/20/2025 09:15:48 03/05/20 25 03/05/2025 MRI, head, w/wo contr ast No observ ation record ed. [facility] [address], [place], [address], 03/05/2025 13:54:52 03/14/2003/14/2025 CT, angio gram, chest , w/ contr ast No observ [facility]ion [email or web address] [address], [place], [address], 03/15/2025 08:23:54 05/08/2005/08/2025 XR, wrist , 2 view No observ ation record ed. [facility] [address], [place], [address], 05/09/2025 08:21:49 Result Notes None recorded. Problems Name Problem SNOMED Code Status Onset Date Resolution Date Notes Provider Name and Address Organization Details Recorded Time Metastatic malignant melanoma 277683884 Active 025 Joey Whaley APRN [address], [place], [address], [place] - [facility] 5 14:42:30 Problem Notes None recorded. Procedures Surgical History Date Name Laterality Status Provider Name and Address Organization Details Recorded Time 02/22/20 Medication Reconcilliation completed Donna Philippe [place] - [facility] 02/21/2025 14:15:20 Hernia Repair completed Donna Philippe [place] - [facility] 02/16/2024 15:57:13 excision of melanoma completed Sheronharry Smith [place] - [facility] 02/11/2025 15:20:09 Imaging Results None recorded. Procedure Notes None recorded. Medical Equipment None Reported. Allergies Allergen ID Allergen Name Allergen Category Reaction Reaction Severity Criticality Documentation Date Start Date Code Code System Note Provider Name and Address Organization Details Recorded Time 858081 Product containin g penicilli n (product) medicatio n Not available Not available high 02/16/2024 98372 8001 SNOMED Donna soto, [place] - [facility] 15:49:53 Medications Name Sig [...] (BMI) Body weight Heart rate Oxygen saturation Respiratory rate Pain severity - 0-10 verbal numeric rating [Score] - Reported Body temperature Systolic And Diastolic Provider Name and Address Organization Details Last Updated DateTime 5 182.88 cm 22 kg/m2 36556.9 6 g 72 /min 97 % 18 /min 0 98.1 [degF] 118/60 mm[Hg] Donna Philippe [place] - [facility] 5 14:25:37 Date Recorded Body height Body mass index (BMI) Body weight Body temperature Heart rate Oxygen saturation Respiratory rate Pain severity - 0-10 verbal numeric rating [Score] - Reported Systolic And Diastolic Provider Name and Address Organization Details Last Updated DateTime 4 182.88 cm 21.3 kg/m2 62529 g 98 [degF] 62 /min 97 % 18 /min 0 110/70 mm[Hg] Donna Philippe [place] - [facility] 4 15:50:58 Date Recorded Body height Body mass index (BMI) Body weight Oxygen saturation Heart rate Body temperature Respiratory rate Pain severity - 0-10 verbal numeric rating [Score] - Reported Systolic And Diastolic Provider Name and Address Organization Details Last Updated DateTime 5 182.88 cm 21.7 kg/m2 00137.7 8 g 97 % 68 /min 98.1 [degF] 18 /min 0 122/68 mm[Hg] Donna Philippe [place] - [facility] 5 14:19:33 Social History Question Answer Notes LastModified by Organizat ion Details LastModified Time Tobacco Smoking Status Never Smoker Donna soto, [place] - [facility] 02/16/2024 15:55:38 Are You Blind Or [...] anxious, or unable to sleep at night)? QZ2640-3 Information not available 02/16/2024 Do you have [...] ICD10 Code Diagnosis IMO Codes Diagnosis Note [id number] JANNY Carpio [address] [address] 02/16/2024 15:33:17 02/16/2024 16:33:48 Mass of skin 173740651 R22.9 follow up with surgery tues at 930 if worsen go to ed [id number] Eugonda Fryman, [employer] [address] [address] 02/11/2025 13:59:31 02/11/2025 15:18:36 Fatigue 02255248 R53.83 [id number] labs History of Malignant melanoma 873397930 Z85.820 461113 Low blood pressure 10164 003 I95.9 [id number] advised to go to edseeing dr zhnag office in am at 10 am Dyspnea 028086283 R06.02 34621 go to ed for any concerns Metastatic malignant melanoma 649948622 C43.9 609877 Dizzy spells 737670543 R 42 630189 go to ed for any concerns or worsening [id number] Joey Whaley APRN [address] [address] 02/21/2025 14:01:24 02/21/2025 15:19:47 Hemorrhage of digestive system 333181194 K28.4 487566 follow up with surgery and oncology- labs at oncology next week History of polyp of colon 200794355 Z86.0100 6070022 follow up with surgery and oncology Neoplasm of colon 392048 000 D49.0 081982 follow up with surgery and oncology Health Concerns Section Related Observation LastModified by Organization Detai ls LastModified Time None Recorded Concern Status LastModified by Organization Details LastModified Time None Recorded Advance Directives Directive None Recorded Payers Insurance Date Sequence Insurance Name Policy Number Policy Oliveira Covered Member ID Oliveira Member ID Guarantor Name 02/09/2025 [employer] - MEDICARE [place] - [facility] (MEDICARE) Serge Bear [id number] Serge Bear 02/11/2025 1 [place]IC[place] Serge Bear [id number] Serge Bear 04/10/2025 2 MEDICAID-[facility] CHO[facility] - FFS/TRADITIO NAL Serge Bear [id number] Serge Bear Notes Date Note Type Note Provider Name and Address Organization Details Recorded Time 02/16/2024 text/html ROS as noted in the HPI 69 yr old male presents for a skin issue on the right forearm. He has a growth there x 1 1/2 years. pt has tried to tie off the mass with string. has odor Joey Whaley, [employer] [address], [place], [address], [place] - [facility] 02/16/2024 16:24:47 02/11/2025 text/html ROS as noted in the HPI 70 yr old male presents for feeling fatigued, low bp at times, soa, balance is off and head feels light and foggy. Joey Whaley, [employer] [address], [place], [address], [place] - [facility] 03/28/2025 15:49:08 02/21/2025 text/html Emergency Depart ment Follow-Up RecordReported by PatientEmergency Room Follow-Up RecordFor discharge information, patient reportsname of hospital/urgent care patient was seen: ([facility]patient presented to hospital/urgent care on or around: [...] week. pt states he feels better. Joey WhaleyJANNY [address], [place], [address], [place] - [facility] 02/21/2025 16:57:24
--- OUTSIDE RECORDS SUMMARY | 2025-05-29 12:09 | XMS_ITS | Clinical Summary ---
Author Organization Healthcare Address [address] [place] [address] Care Team Providers Care Books Salesperson Name Role Phone Diego Truong MD Unavailable [phone] Hernan Silvestre MD Unavailable [phone] Joey Whaley APRN Primary Care Provider [phone] Allergies Active Allergy Reactions Criticality Noted Date [...] Wellness (AWV) 1955 [facility]-Infant/Child/Adol SDOH Screenings 1955 [id number] Vaccine (#1) 1962 [facility]- SDOH Screenings 1975 [...] complete this topic Insurance MEDIC[place] [address] Care Teams Books Salesperson Relationship Specialty Start Date End Date Joey Whaley APRN [address] [place] [address] PCP - General 06/27/23 Diego Truong MD [address] [place] [address] Referring Physician 03/01/24 Hernan Silvestre MD [address] [address] Surgeon Surgical Oncology 03/01/24
[2025-05-29 12:16] LABS: Hematocrit 35.2 % (42.0-52.0); Hemoglobin 10.8 g/dL (14.1-18.0); Immature Granulocytes % 0.4 %; Mean Corpuscular HGB Conc 30.7 g/dL (31.8-35.4); Mean Corpuscular Hemoglobin 23.8 pg (27.0-31.2); Mean Corpuscular Volume 77.5 fl (80-94); Nucleated Red Blood Cells % 0 %; Platelet Count 342 K/mm3 (142-424); Red Blood Count 4.54 M/mm3 (4.60-6.20); Red Cell Distribution Width-SD 55.0 fL; White Blood Count 8.3 K/mm3 (4.8-10.8)
[2025-05-29 12:17] VITALS: BMI 21.0
[2025-05-29 12:27] LABS: Alanine Aminotransferase 27 U/L (12-78); Albumin Level 3.8 g/dl (3.5-5.0); Albumin/Globulin Ratio 1.1 (1.1-1.8); Alkaline Phosphatase 161 U/L (38-126); Anion Gap 9.1 mEq/L (5-15); Aspartate Amino Transferase 26 U/L (17-59); Bilirubin,Total 0.6 mg/dl (0.2-1.3); Blood Urea Nitrogen 15 mg/dl (9-20); Calcium 9.3 mg/dl (8.4-10.2); Carbon Dioxide 22 mmol/L (22.0-30.0); Chloride 106 mmol/L (98-107); Creatinine Clearance Estimated 68 mL/min (50-200); Creatinine,Serum 1.00 mg/dl (0.66-1.25); Estimated Glomerular Filt Rate 74 ml/min (>60); GFR (African American) 90 ML/MIN (>60); Globulin 3.4 g/dL (1.3-3.2); Glucose 97 mg/dl (74-100); Potassium 4.1 mmoL/L (3.5-5.1); Sodium 133 mmol/L (136-145); Total Protein,Serum 7.2 g/dl (6.3-8.2)
[2025-05-29] MEDS: SODIUM CHLORIDE 0.9% IV ×2 (12:54→13:35)
[2025-05-29] MEDS: IPILIMUMAB IV (12:54)
[2025-05-29 12:59] VITALS: BP 141/79; PULSE 82; RESP 18; O2SAT 96
[2025-05-29] MEDS: NIVOLUMAB IV (13:35)
[2025-05-29 14:20] VITALS: BP 114/73; PULSE 79; RESP 18; O2SAT 95
== END 2025-05-29 23:59 | disposition home or self-care (01) ==
PROVIDERS: PCP Nurse Practitioner Family; Visit Provider Internal Medicine Medical Oncology
DX: C78.89 Secondary malignant neoplasm of other digestive organs (principal); Z51.11 Encounter for antineoplastic chemotherapy
CPT/HCPCS: 80053; 85025; 96413; 96417; J9228; J9299